=== PATIENT | female | born 1960 | race Caucasian/White ===

== ENCOUNTER 2018-07-21 19:59 | Inpatient (IN) | payer MEDICAID ==
[~2018-07-21] VITALS: Ht 170.2 cm; Wt 137.1 kg
[~2018-07-21 19:59] MED LIST: ALBU18HF2 IH; DIAZ5TAB4 PO; DIPH50TA15 PO; FURO-150 PO; NAPR220T67 PO; NYST15OI14 TP; PER10325T PO; POTA8TAB8 PO; PROM25TA14 PO; WARF1TAB PO
[2018-07-21] MEDS ORDERED: ketorolac trometh inj. 60 MG/2 ML VIAL IM ONE (20:15)
[2018-07-21] MEDS ORDERED: NAPR-1154 PO (20:27)
[2018-07-21] MEDS ORDERED: CYCL-1 PO (20:27)
[2018-07-21] MEDS ORDERED: OXYGEN (20:27)
[2018-07-21] MEDS ORDERED: LISI40TA4 PO (20:27)
[2018-07-21] MEDS ORDERED: [UNRECOGNIZED DRUG - OTHER] (20:27)
[2018-07-21 20:57] LABS: BASOPHILS # (AUTO) 0.1 X10'3 (0-0.2); BASOPHILS % (AUTO) 1.2 % (0-1); EOSINOPHILS % (AUTO) 0 % (0-6); HEMATOCRIT 57.1 % (35.0-45.0); HEMOGLOBIN 17.4 g/dl (12.0-16.0); LYMPHOCYTES # (AUTO) 0.3 X10'3 (1.1-4.8); LYMPHOCYTES % (AUTO) 2.7 % (21-51); MEAN CORPUSCULAR HEMOGLOBIN 28.7 PG (27.0-31.0); MEAN CORPUSCULAR HGB CONC 30.5 % (33.0-36.5); MEAN CORPUSCULAR VOLUME 94.1 FL (78-98); MEAN PLATELET VOLUME 10.5 FL (7.4-10.4); MONOCYTES # (AUTO) 0.1 X10'3 (0-0.9); MONOCYTES % (AUTO) 1.3 % (2-12); NEUTROPHILS % (AUTO) 94.8 % (42-75); PLATELET COUNT 182 X10'3 (140-440); RED BLOOD COUNT 6.07 X10'6 (4.20-5.60); RED CELL DISTRIBUTION WIDTH 18.8 % (11.5-14.5); WHITE BLOOD COUNT 9.5 X10'3 (4.5-11.0)
[2018-07-21 21:06] LABS: ALANINE AMINOTRANSFERASE 21 U/L (12-78); ALBUMIN 2.8 G/DL (3.4-5.0); ALBUMIN/GLOBULIN RATIO 0.5 (1.1-1.5); ALKALINE PHOSPHATASE 156 IU/L (46-116); ANION GAP 5 (8-16); ASPARTATE AMINO TRANSFERASE 26 U/L (10-37); BILIRUBIN,TOTAL 1.5 MG/DL (0.1-1.0); BLOOD UREA NITROGEN 37 MG/DL (7-18); BUN/CREATININE RATIO 32.2 (6.6-38.0); CALCIUM 9.6 MG/DL (8.5-10.1); CHLORIDE 103 MMOL/L (99-107); CREATININE 1.15 MG/DL (0.40-0.90); GLUCOSE 137 MG/DL (70-104); POTASSIUM 5.4 MMOL/L (3.5-5.1); SODIUM 143 MMOL/L (135-145); TOTAL CARBON DIOXIDE 35.3 MMOL/L (24-32); TOTAL PROTEIN 8.7 G/DL (6.4-8.2); eGFR 49 ML/MIN
[2018-07-21] MEDS ORDERED: enoxaparin 100mg/ml syringe SUBCUT ONE (21:40)
[2018-07-21 22:27] LABS: INR 1.2 INR; PROTHROMBIN TIME 11.9 SECONDS (9.0-12.0)
[2018-07-21 22:29] LABS: ANISOCYTOSIS 2+; PLATELET ESTIMATE NORMAL; TOTAL CELLS COUNTED 100
[2018-07-21 22:40] LABS: URINE HCG NEGATIVE (NEG)
[2018-07-21 22:45] LABS: CLARITY,URINE SLIGHTLY CLOUDY (Clear); COLOR,URINE AMBER (Yellow); GLUCOSE, URINE NEGATIVE (Neg); KETONES,URINE NEGATIVE (Neg); LEUKOCYTE ESTERASE ,URINE NEGATIVE (Neg); NITRITES, URINE NEGATIVE (Neg); OCCULT BLOOD,URINE SMALL (Neg); PH,URINE 5.5 (4.8-8.0); PROTEIN,URINE >=300 mg/dl (Neg)
[2018-07-21 22:51] LABS: UA COLLECTION TYPE CLN CATCH MIDSTREAM
[2018-07-21] MEDS ORDERED: mag hydrox/Alum hydrox/simeth 30ml oral suspension PO PRN (22:55)
[2018-07-21] MEDS ORDERED: acetaminophen 325mg tablet PO PRN (22:55)
[2018-07-21] MEDS ORDERED: magnesium hydroxide 30ml (MOM) UD suspension PO PRN (22:55)
[2018-07-21] MEDS ORDERED: ondansetron/PF 4mg/2ml inj IV PRN (22:55)
[2018-07-21] MEDS ORDERED: diphenhydrAMINE 25mg capsule PO PRN (23:00)
[2018-07-21] MEDS ORDERED: cyclobenzaprine 10mg tablet PO PRN (23:00)
[2018-07-21 23:05] LABS: BACTERIA,URINE FEW /HPF (Neg); CELLULAR CAST 0-4 /LPF (NEGATIVE); COARSE GRANULAR CAST 0-3 /LPF (NEGATIVE); RBC,URINE 0-2 /HPF (0-2); SQUAMOUS EPITHELIAL CELL,UR FEW /LPF (FEW); WBC,URINE 0-4 /HPF (0-4)
[2018-07-21 23:52] LABS: HEMOGLOBIN A1C 5.8 % (4.5-6.2)
[2018-07-22] MEDS: oxyCODONE/APAP 10/325mg tablet PO PRN ×3 (00:28→14:01)
[2018-07-22 07:50] VITALS: BP 132/78
[2018-07-22] MEDS: nystatin 15 GM ointment TP SCH ×2 (08:00→20:14)
[2018-07-22] MEDS ORDERED: furosemide 20MG tablet PO SCH (08:00)
[2018-07-22] MEDS ORDERED: potassium chloride 8mEq ER tablet PO SCH (08:00)
[2018-07-22] MEDS ORDERED: heparin, porcine 5000 units/ml vial SQ SCH (08:00)
[2018-07-22] MEDS: lisinopril 20mg tablet PO SCH (08:26)
[2018-07-22 08:58] LABS: ALANINE AMINOTRANSFERASE 22 U/L (12-78); ALBUMIN 2.6 G/DL (3.4-5.0); ALBUMIN/GLOBULIN RATIO 0.5 (1.1-1.5); ALKALINE PHOSPHATASE 150 IU/L (46-116); ANION GAP 3 (8-16); ASPARTATE AMINO TRANSFERASE 24 U/L (10-37); BILIRUBIN,TOTAL 1.2 MG/DL (0.1-1.0); BLOOD UREA NITROGEN 37 MG/DL (7-18); CALCIUM 9.2 MG/DL (8.5-10.1); CHLORIDE 102 MMOL/L (99-107); CHOL/HDL RATIO 2.5 (0.00-4.99); CHOLESTEROL 116 MG/DL (0-200); GLUCOSE 129 MG/DL (70-104); HDL CHOLESTEROL 46 MG/DL (35-60); LDL CHOLESTEROL 61 MG/DL (50-100); POTASSIUM 5.5 MMOL/L (3.5-5.1); SODIUM 143 MMOL/L (135-145); TOTAL CARBON DIOXIDE 38.4 MMOL/L (24-32); TOTAL PROTEIN 8.3 G/DL (6.4-8.2); TRIGLYCERIDES 88 MG/DL (20-135)
[2018-07-22 09:53] LABS: BUN/CREATININE RATIO 30.1 (6.6-38.0); CREATININE 1.23 MG/DL (0.40-0.90); eGFR 45 ML/MIN
[2018-07-22 11:00] VITALS: BP 136/58
[2018-07-22 11:24] LABS: HEMATOCRIT 50.7 % (35.0-45.0); HEMOGLOBIN 16.2 g/dl (12.0-16.0); MEAN CORPUSCULAR HEMOGLOBIN 29.2 PG (27.0-31.0); MEAN CORPUSCULAR VOLUME 91.3 FL (78-98); MEAN PLATELET VOLUME 10.6 FL (7.4-10.4); PLATELET COUNT 220 X10'3 (140-440); RED BLOOD COUNT 5.56 X10'6 (4.20-5.60); RED CELL DISTRIBUTION WIDTH 17.7 % (11.5-14.5)
[2018-07-22 11:29] LABS: BASOPHILS % (AUTO) 0 % (0-1); EOSINOPHILS # (AUTO) 0.1 X10'3 (0-0.9); EOSINOPHILS % (AUTO) 0.9 % (0-6); LYMPHOCYTES # (AUTO) 0.4 X10'3 (1.1-4.8); LYMPHOCYTES % (AUTO) 3.8 % (21-51); MONOCYTES # (AUTO) 0.5 X10'3 (0-0.9); NEUTROPHILS # (AUTO) 9.5 X10'3 (1.8-7.7); NEUTROPHILS % (AUTO) 90.3 % (42-75); WHITE BLOOD COUNT 10.5 X10'3 (4.5-11.0)
[2018-07-22] MEDS ORDERED: CefTRIAXone/D5W-Rocephin 1gm 50 ML IV SCH (12:35)
[2018-07-22] MEDS: levoFLOXACIN-Levaquin 750MG/D5 150 ML IV SCH (13:47)
[2018-07-22 15:00] VITALS: BP 111/55
[2018-07-22] MEDS ORDERED: LIDOcaine 1% (10mg/ml) 2ml vial ONE (15:28)
[2018-07-22] MEDS: furosemide 40mg/4ml inj IV SCH (20:13)
[2018-07-22 23:00] VITALS: BP 117/68
[2018-07-23] VITALS (12 sets, daily range): BP systolic 107–158; BP diastolic 70–95
[2018-07-23] MEDS: heparin, porcine 5000 units/ml vial SQ SCH ×3 (00:13→16:35)
[2018-07-23 06:36] LABS: BASOPHILS # (AUTO) 0.2 X10'3 (0-0.2); EOSINOPHILS % (AUTO) 0.3 % (0-6); HEMATOCRIT 55.1 % (35.0-45.0); LYMPHOCYTES # (AUTO) 0.6 X10'3 (1.1-4.8); LYMPHOCYTES % (AUTO) 6.9 % (21-51); MEAN CORPUSCULAR HEMOGLOBIN 28.7 PG (27.0-31.0); MEAN CORPUSCULAR HGB CONC 30.4 % (33.0-36.5); MEAN CORPUSCULAR VOLUME 94.4 FL (78-98); MEAN PLATELET VOLUME 10.2 FL (7.4-10.4); MONOCYTES # (AUTO) 0.9 X10'3 (0-0.9); MONOCYTES % (AUTO) 9.7 % (2-12); NEUTROPHILS # (AUTO) 7.5 X10'3 (1.8-7.7); NEUTROPHILS % (AUTO) 81.1 % (42-75); PLATELET COUNT 205 X10'3 (140-440); RED BLOOD COUNT 5.84 X10'6 (4.20-5.60); RED CELL DISTRIBUTION WIDTH 18.8 % (11.5-14.5); WHITE BLOOD COUNT 9.2 X10'3 (4.5-11.0)
[2018-07-23 07:00] LABS: HEMOGLOBIN 17.1 g/dl (12.0-16.0)
[2018-07-23 07:03] LABS: ALANINE AMINOTRANSFERASE 17 U/L (12-78); ALBUMIN 2.5 G/DL (3.4-5.0); ALBUMIN/GLOBULIN RATIO 0.5 (1.1-1.5); ALKALINE PHOSPHATASE 127 IU/L (46-116); ANION GAP 5 (8-16); ASPARTATE AMINO TRANSFERASE 25 U/L (10-37); BLOOD UREA NITROGEN 44 MG/DL (7-18); BUN/CREATININE RATIO 35.8 (6.6-38.0); CALCIUM 9.5 MG/DL (8.5-10.1); CHLORIDE 104 MMOL/L (99-107); CREATININE 1.23 MG/DL (0.40-0.90); GLUCOSE 97 MG/DL (70-104); POTASSIUM 5.2 MMOL/L (3.5-5.1); SODIUM 146 MMOL/L (135-145); TOTAL CARBON DIOXIDE 36.9 MMOL/L (24-32); TOTAL PROTEIN 7.7 G/DL (6.4-8.2); eGFR 45 ML/MIN
[2018-07-23] MEDS: levoFLOXACIN-Levaquin 750MG/D5 150 ML IV SCH (07:49)
[2018-07-23] MEDS: lisinopril 20mg tablet PO SCH (07:49)
[2018-07-23] MEDS: oxyCODONE/APAP 10/325mg tablet PO PRN ×4 (07:50→23:43)
[2018-07-23] MEDS: furosemide 40mg/4ml inj IV SCH ×2 (07:52→19:46)
[2018-07-23] MEDS: nystatin 15 GM ointment TP SCH ×2 (08:00→19:47)
[2018-07-23] MEDS ORDERED: sodium polystyrene sulfonate 15gm/60ml oral suspension PO ONE (08:25)
[2018-07-23] MEDS ORDERED: LIDOcaine 1%/PF 5ML 10 MG/ML VIAL ONE (10:34)
[2018-07-23 12:42] LABS: ALBUMIN,BODY FLUID 1.5 G/DL; GLUCOSE,BODY FLUID 119 MG/DL; LDH,BODY FLUID 230 U/L; TOTAL PROTEIN,BODY FLUID 3.6 G/DL
[2018-07-23 12:50] LABS: BF WBC COUNT 400 /CU MM (0-1000); BFAPPEAR CLOUDY; BFCOLOR AMBER; BFVOLUME 55 ML
[2018-07-23 12:51] LABS: BF MESOTHELIAL CELLS OCCASIONAL; BF RBC COUNT 5325 /CU MM; LYMPHOCYTES,BODY FLUID 32 %; MONOCYTES,BODY FLUID 5 %; NEUTROPHILS,BODY FLUID 63 %
[2018-07-23] MEDS: methylPREDNISolone sod succ/PF 40mg inj. IV SCH (16:00)
[2018-07-23] MEDS: lactobacillus rhamnosus 10,000 MMU CELLS/CAPSULE PO SCH (19:45)
[2018-07-24] VITALS (7 sets, daily range): BP systolic 106–152; BP diastolic 57–98
[2018-07-24] MEDS: methylPREDNISolone sod succ/PF 40mg inj. IV SCH ×3 (00:31→17:21)
[2018-07-24] MEDS: heparin, porcine 5000 units/ml vial SQ SCH ×3 (00:36→17:21)
[2018-07-24 06:06] LABS: BASOPHILS % (AUTO) 0.7 % (0-1); EOSINOPHILS % (AUTO) 0.1 % (0-6); HEMATOCRIT 55.1 % (35.0-45.0); HEMOGLOBIN 16.8 g/dl (12.0-16.0); LYMPHOCYTES # (AUTO) 0.2 X10'3 (1.1-4.8); MEAN CORPUSCULAR HEMOGLOBIN 28.6 PG (27.0-31.0); MEAN CORPUSCULAR HGB CONC 30.5 % (33.0-36.5); MEAN CORPUSCULAR VOLUME 93.9 FL (78-98); MEAN PLATELET VOLUME 10.8 FL (7.4-10.4); MONOCYTES # (AUTO) 0.1 X10'3 (0-0.9); MONOCYTES % (AUTO) 1.3 % (2-12); NEUTROPHILS # (AUTO) 5.4 X10'3 (1.8-7.7); NEUTROPHILS % (AUTO) 93.9 % (42-75); PLATELET COUNT 185 X10'3 (140-440); RED BLOOD COUNT 5.87 X10'6 (4.20-5.60); RED CELL DISTRIBUTION WIDTH 18.2 % (11.5-14.5); WHITE BLOOD COUNT 5.7 X10'3 (4.5-11.0)
[2018-07-24 06:38] LABS: ALBUMIN 2.5 G/DL (3.4-5.0); ALBUMIN/GLOBULIN RATIO 0.5 (1.1-1.5); ANION GAP 3 (8-16); BILIRUBIN,TOTAL 1.1 MG/DL (0.1-1.0); BLOOD UREA NITROGEN 42 MG/DL (7-18); BUN/CREATININE RATIO 33.9 (6.6-38.0); CALCIUM 9.6 MG/DL (8.5-10.1); CHLORIDE 102 MMOL/L (99-107); CREATININE 1.24 MG/DL (0.40-0.90); GLUCOSE 133 MG/DL (70-104); SODIUM 147 MMOL/L (135-145); TOTAL PROTEIN 7.8 G/DL (6.4-8.2); eGFR 45 ML/MIN
[2018-07-24 06:39] LABS: ALANINE AMINOTRANSFERASE 19 U/L (12-78); ALKALINE PHOSPHATASE 128 IU/L (46-116); ASPARTATE AMINO TRANSFERASE 26 U/L (10-37); POTASSIUM 4.9 MMOL/L (3.5-5.1)
[2018-07-24 06:42] LABS: TOTAL CARBON DIOXIDE 42.5 MMOL/L (24-32)
[2018-07-24] MEDS: nystatin 15 GM ointment TP SCH ×2 (08:00→19:34)
[2018-07-24] MEDS: lactobacillus rhamnosus 10,000 MMU CELLS/CAPSULE PO SCH ×2 (09:18→19:33)
[2018-07-24] MEDS: oxyCODONE/APAP 10/325mg tablet PO PRN ×2 (09:18→17:24)
[2018-07-24] MEDS: levoFLOXACIN-Levaquin 750MG/D5 150 ML IV SCH (09:20)
[2018-07-24] MEDS: furosemide 40mg/4ml inj IV SCH ×2 (09:20→19:33)
[2018-07-24 09:46] LABS: ABG BASE EXCESS 11.4 mmol/L (-2.0-3.0); ABG HCO3 42.6 mmol/L (22.0-26.0); ABG OXYGEN SATURATION 94.7 % (95-98); ABG PCO2 (T) 83.5 mmHg (32.0-45.0); ABG PH (T) 7.326 (7.350-7.450); ABG PO2 (T) 71.9 mmHg (83-108); ALLEN'S TEST Positive; FCOHb 0.5 % (0.5-1.5); FLOW 10 L/min; FMetHb 0.5 % (0.3-1.12); FO2Hb 93.8 % (94-100); RESPIRATORY RATE 20 b/min; TOTAL HEMOGLOBIN 18.4 G/dl (12.0-16.0)
[2018-07-24] MEDS: diazepam 5mg tablet PO PRN (19:33)
[2018-07-25] VITALS (10 sets, daily range): BP systolic 136–172; BP diastolic 71–101
[2018-07-25] MEDS: methylPREDNISolone sod succ/PF 40mg inj. IV SCH ×3 (00:05→16:21)
[2018-07-25] MEDS: heparin, porcine 5000 units/ml vial SQ SCH ×3 (00:06→16:22)
[2018-07-25] MEDS: diazepam 5mg tablet PO PRN ×2 (02:29→16:34)
[2018-07-25 07:03] LABS: BASOPHILS % (AUTO) 0.7 % (0-1); EOSINOPHILS # (AUTO) 0.1 X10'3 (0-0.9); LYMPHOCYTES # (AUTO) 0.3 X10'3 (1.1-4.8); MEAN CORPUSCULAR VOLUME 92.9 FL (78-98); MEAN PLATELET VOLUME 10.6 FL (7.4-10.4); MONOCYTES # (AUTO) 0.3 X10'3 (0-0.9); MONOCYTES % (AUTO) 3.9 % (2-12); NEUTROPHILS % (AUTO) 90.4 % (42-75); PLATELET COUNT 168 X10'3 (140-440); RED BLOOD COUNT 6.08 X10'6 (4.20-5.60); RED CELL DISTRIBUTION WIDTH 17.3 % (11.5-14.5); WHITE BLOOD COUNT 6.7 X10'3 (4.5-11.0)
[2018-07-25 07:20] LABS: ALANINE AMINOTRANSFERASE 21 U/L (12-78); ALBUMIN 2.5 G/DL (3.4-5.0); ALBUMIN/GLOBULIN RATIO 0.5 (1.1-1.5); ALKALINE PHOSPHATASE 124 IU/L (46-116); ASPARTATE AMINO TRANSFERASE 20 U/L (10-37); BILIRUBIN,TOTAL 1.3 MG/DL (0.1-1.0); BLOOD UREA NITROGEN 40 MG/DL (7-18); BUN/CREATININE RATIO 31.5 (6.6-38.0); CALCIUM 9.3 MG/DL (8.5-10.1); CHLORIDE 99 MMOL/L (99-107); CREATININE 1.27 MG/DL (0.40-0.90); GLUCOSE 138 MG/DL (70-104); SODIUM 147 MMOL/L (135-145); TOTAL PROTEIN 7.4 G/DL (6.4-8.2); eGFR 44 ML/MIN
[2018-07-25 07:51] LABS: ANISOCYTOSIS 1+; LARGE PLATELETS FEW; PLATELET ESTIMATE NORMAL
[2018-07-25 07:52] LABS: STOMATOCYTES 1+
[2018-07-25 07:54] LABS: ANION GAP 1 (8-16); POTASSIUM 4.2 MMOL/L (3.5-5.1)
[2018-07-25 07:55] LABS: HEMOGLOBIN 17.1 g/dl (12.0-16.0)
[2018-07-25 07:57] LABS: HEMATOCRIT 53.1 % (35.0-45.0); MEAN CORPUSCULAR HEMOGLOBIN 28.1 PG (27.0-31.0); MEAN CORPUSCULAR HGB CONC 32.2 % (33.0-36.5)
[2018-07-25] MEDS: lactobacillus rhamnosus 10,000 MMU CELLS/CAPSULE PO SCH ×2 (07:57→19:47)
[2018-07-25] MEDS: furosemide 40mg/4ml inj IV SCH (07:57)
[2018-07-25] MEDS: oxyCODONE/APAP 10/325mg tablet PO PRN ×3 (08:00→19:48)
[2018-07-25 08:02] LABS: TOTAL CARBON DIOXIDE 47.1 MMOL/L (24-32)
[2018-07-25] MEDS: nystatin 15 GM ointment TP SCH ×2 (08:46→20:00)
[2018-07-25] MEDS: levoFLOXACIN 750MG TABLET PO SCH (10:53)
[2018-07-25 12:40] LABS: ABG HCO3 48.5 mmol/L (22.0-26.0); ABG OXYGEN SATURATION 92.6 % (95-98); ABG PCO2 (T) 70.8 mmHg (32.0-45.0); ABG PH (T) 7.454 (7.350-7.450); ALLEN'S TEST Positive; FCOHb 0.4 % (0.5-1.5); FMetHb 0.4 % (0.3-1.12); FO2Hb 91.9 % (94-100); TOTAL HEMOGLOBIN 18.4 G/dl (12.0-16.0)
[2018-07-25] MEDS: ipratropium 0.5 MG/2.5ML nebule IH SCH ×3 (16:19→23:06)
[2018-07-25] MEDS: furosemide 20MG tablet PO SCH (19:49)
[2018-07-26] MEDS: methylPREDNISolone sod succ/PF 40mg inj. IV SCH ×3 (00:10→16:32)
[2018-07-26] MEDS: heparin, porcine 5000 units/ml vial SQ SCH ×3 (00:11→16:33)
[2018-07-26] MEDS: oxyCODONE/APAP 10/325mg tablet PO PRN ×4 (00:16→19:56)
[2018-07-26] MEDS: ipratropium 0.5 MG/2.5ML nebule IH SCH ×6 (02:53→23:26)
[2018-07-26 03:00] VITALS: BP 166/84
[2018-07-26 06:00] VITALS: BP 150/90
[2018-07-26 07:02] LABS: BASOPHILS # (AUTO) 0.1 X10'3 (0-0.2); BASOPHILS % (AUTO) 1.8 % (0-1); EOSINOPHILS % (AUTO) 0 % (0-6); HEMOGLOBIN 17.4 g/dl (12.0-16.0); LYMPHOCYTES # (AUTO) 0.3 X10'3 (1.1-4.8); LYMPHOCYTES % (AUTO) 3.5 % (21-51); MEAN CORPUSCULAR HEMOGLOBIN 28.4 PG (27.0-31.0); MEAN CORPUSCULAR HGB CONC 31.2 % (33.0-36.5); MEAN CORPUSCULAR VOLUME 91.2 FL (78-98); MEAN PLATELET VOLUME 10.4 FL (7.4-10.4); MONOCYTES # (AUTO) 0.5 X10'3 (0-0.9); MONOCYTES % (AUTO) 6.3 % (2-12); NEUTROPHILS # (AUTO) 6.3 X10'3 (1.8-7.7); NEUTROPHILS % (AUTO) 88.4 % (42-75); PLATELET COUNT 169 X10'3 (140-440); RED BLOOD COUNT 6.14 X10'6 (4.20-5.60); RED CELL DISTRIBUTION WIDTH 17.7 % (11.5-14.5); WHITE BLOOD COUNT 7.2 X10'3 (4.5-11.0)
[2018-07-26 07:21] LABS: ALANINE AMINOTRANSFERASE 26 U/L (12-78); ALBUMIN 2.5 G/DL (3.4-5.0); ALBUMIN/GLOBULIN RATIO 0.5 (1.1-1.5); ALKALINE PHOSPHATASE 114 IU/L (46-116); ASPARTATE AMINO TRANSFERASE 28 U/L (10-37); BILIRUBIN,TOTAL 1.4 MG/DL (0.1-1.0); BLOOD UREA NITROGEN 42 MG/DL (7-18); BUN/CREATININE RATIO 33.3 (6.6-38.0); CALCIUM 9.2 MG/DL (8.5-10.1); CHLORIDE 98 MMOL/L (99-107); CREATININE 1.26 MG/DL (0.40-0.90); GLUCOSE 159 MG/DL (70-104); POTASSIUM 4.1 MMOL/L (3.5-5.1); SODIUM 144 MMOL/L (135-145); TOTAL PROTEIN 7.2 G/DL (6.4-8.2); eGFR 44 ML/MIN
[2018-07-26 07:26] LABS: ANISOCYTOSIS 2+; PLATELET ESTIMATE NORMAL
[2018-07-26] MEDS: furosemide 20MG tablet PO SCH (07:36)
[2018-07-26] MEDS: lactobacillus rhamnosus 10,000 MMU CELLS/CAPSULE PO SCH ×2 (07:36→19:54)
[2018-07-26 07:59] LABS: ANION GAP -4 (8-16)
[2018-07-26 08:00] LABS: TOTAL CARBON DIOXIDE > 50 MMOL/L (24-32)
[2018-07-26] MEDS: nystatin 15 GM ointment TP SCH ×2 (08:00→19:56)
[2018-07-26 08:40] LABS: ABG BASE EXCESS 18.3 mmol/L (-2.0-3.0); ABG HCO3 47.8 mmol/L (22.0-26.0); ABG PCO2 (T) 68.8 mmHg (32.0-45.0); ALLEN'S TEST Positive; FCOHb 0.3 % (0.5-1.5); FMetHb 0.3 % (0.3-1.12); FO2Hb 90.5 % (94-100); TOTAL HEMOGLOBIN 19.5 G/dl (12.0-16.0)
[2018-07-26 11:00] VITALS: BP 155/94
[2018-07-26] MEDS: diazepam 5mg tablet PO PRN (11:09)
[2018-07-26] MEDS: levoFLOXACIN 750MG TABLET PO SCH (11:10)
[2018-07-26 11:27] LABS: CLARITY,URINE CLEAR (Clear); COLOR,URINE YELLOW (Yellow); GLUCOSE, URINE NEGATIVE (Neg); KETONES,URINE NEGATIVE (Neg); LEUKOCYTE ESTERASE ,URINE TRACE (Neg); NITRITES, URINE NEGATIVE (Neg); OCCULT BLOOD,URINE LARGE (Neg); PROTEIN,URINE NEGATIVE (Neg); UROBILINOGEN,URINE 0.2 E.U/dL (0.2-1.0)
[2018-07-26 11:28] LABS: UA COLLECTION TYPE NON-SPECIFIED
[2018-07-26 11:34] LABS: MUCUS STRANDS MANY /LPF (Neg); SQUAMOUS EPITHELIAL CELL,UR FEW /LPF (FEW)
[2018-07-26 11:36] LABS: BACTERIA,URINE NONE SEEN /HPF (Neg); RBC,URINE 50-100 /HPF (0-2); WBC,URINE 0-4 /HPF (0-4)
[2018-07-26 15:00] VITALS: BP 139/86
[2018-07-26 19:00] VITALS: BP 137/79
[2018-07-26] MEDS: acetaZOLAMIDE 250mg tablet PO SCH (19:54)
[2018-07-26 23:00] VITALS: BP 131/60
[2018-07-27] MEDS: methylPREDNISolone sod succ/PF 40mg inj. IV SCH ×3 (00:28→15:15)
[2018-07-27] MEDS: heparin, porcine 5000 units/ml vial SQ SCH ×3 (00:30→15:16)
[2018-07-27] MEDS: ipratropium 0.5 MG/2.5ML nebule IH SCH ×4 (02:47→14:59)
[2018-07-27 03:00] VITALS: BP 140/68
[2018-07-27] MEDS: oxyCODONE/APAP 10/325mg tablet PO PRN ×3 (04:56→15:15)
[2018-07-27 06:00] VITALS: BP 132/90
[2018-07-27] MEDS: nystatin 15 GM ointment TP SCH (08:00)
[2018-07-27] MEDS: lactobacillus rhamnosus 10,000 MMU CELLS/CAPSULE PO SCH (08:13)
[2018-07-27] MEDS: acetaZOLAMIDE 250mg tablet PO SCH (08:13)
[2018-07-27 09:27] LABS: ALANINE AMINOTRANSFERASE 28 U/L (12-78); ALBUMIN 2.6 G/DL (3.4-5.0); ALBUMIN/GLOBULIN RATIO 0.6 (1.1-1.5); ALKALINE PHOSPHATASE 115 IU/L (46-116); ASPARTATE AMINO TRANSFERASE 26 U/L (10-37); BILIRUBIN,TOTAL 1.7 MG/DL (0.1-1.0); BLOOD UREA NITROGEN 42 MG/DL (7-18); BUN/CREATININE RATIO 32.8 (6.6-38.0); CHLORIDE 97 MMOL/L (99-107); CREATININE 1.28 MG/DL (0.40-0.90); GLUCOSE 156 MG/DL (70-104); POTASSIUM 3.7 MMOL/L (3.5-5.1); SODIUM 142 MMOL/L (135-145); eGFR 43 ML/MIN
[2018-07-27 09:28] LABS: BASOPHILS % (AUTO) 0.2 % (0-1); EOSINOPHILS % (AUTO) 0 % (0-6); LYMPHOCYTES # (AUTO) 0.3 X10'3 (1.1-4.8); LYMPHOCYTES % (AUTO) 3.8 % (21-51); MONOCYTES # (AUTO) 0.3 X10'3 (0-0.9); MONOCYTES % (AUTO) 4.1 % (2-12); NEUTROPHILS # (AUTO) 6.9 X10'3 (1.8-7.7); NEUTROPHILS % (AUTO) 91.9 % (42-75)
[2018-07-27 09:43] LABS: ANION GAP -2 (8-16)
[2018-07-27 09:44] LABS: HEMOGLOBIN 17.9 g/dl (12.0-16.0); MEAN CORPUSCULAR HGB CONC 31.9 % (33.0-36.5); MEAN CORPUSCULAR VOLUME 90.9 FL (78-98); MEAN PLATELET VOLUME 10.6 FL (7.4-10.4); PLATELET COUNT 140 X10'3 (140-440); RED BLOOD COUNT 6.16 X10'6 (4.20-5.60); RED CELL DISTRIBUTION WIDTH 17.3 % (11.5-14.5); WHITE BLOOD COUNT 6.9 X10'3 (4.5-11.0)
[2018-07-27 09:58] LABS: TOTAL CARBON DIOXIDE 46.7 MMOL/L (24-32)
[2018-07-27 11:00] VITALS: BP 138/80
[2018-07-27] MEDS: levoFLOXACIN 750MG TABLET PO SCH (12:11)
[2018-07-27 15:00] VITALS: BP 145/74
[2018-07-29] MEDS ORDERED: levoFLOXACIN 750MG TABLET PO SCH (11:00)
== END 2018-07-27 16:30 | DRG 134 ==
LOC: ER 19:59 → ED HOLD 22:51 → EDBEDREQ 07-22 06:20 → PCU 3S 07-22 07:45 → CMPBEDREQ 07-26 21:33
PROVIDERS: ADMIT Internal Medicine; ATTEND Family Medicine
PROC: 0W993ZZ Drainage of Right Pleural Cavity, Percutaneous Approach (ICD-10-PCS; principal; 2018-07-23)
PROC: 5A09457 Assistance with Respiratory Ventilation, 24-96 Consecutive Hours, Continuous Positive Airway Pressure (ICD-10-PCS; 2018-07-24)
DX: I26.99 Other pulmonary embolism without acute cor pulmonale (principal); J96.01 Acute respiratory failure with hypoxia; I50.31 Acute diastolic (congestive) heart failure; J18.9 Pneumonia, unspecified organism; J90 Pleural effusion, not elsewhere classified; E87.3 Alkalosis; J44.1 Chronic obstructive pulmonary disease with (acute) exacerbation; J44.0 Chronic obstructive pulmonary disease with (acute) lower respiratory infection; E87.5 Hyperkalemia; L03.115 Cellulitis of right lower limb; N17.9 Acute kidney failure, unspecified; D35.02 Benign neoplasm of left adrenal gland; L03.116 Cellulitis of left lower limb; G89.29 Other chronic pain; F17.200 Nicotine dependence, unspecified, uncomplicated; G35 Multiple sclerosis; N18.9 Chronic kidney disease, unspecified; Z88.8 Allergy status to other drugs, medicaments and biological substances; Z86.718 Personal history of other venous thrombosis and embolism; Z88.1 Allergy status to other antibiotic agents; Z71.6 Tobacco abuse counseling; Z85.42 Personal history of malignant neoplasm of other parts of uterus; Z90.710 Acquired absence of both cervix and uterus; Z99.81 Dependence on supplemental oxygen
CPT/HCPCS: 32557; 36415; 36600; 71045; 71250; 76604; 78582; 80053; 80061; 81001; 81025; 82042; 82803; 82945; 83036; 83605; 83615; 83735; 83880; 84132; 84145; 84157; 84484; 85018; 85025; 85610; 85730; 87040; 87070; 89051; 93005; 93306; 93970; 94640; 94660; 94760; 96372; 97110; 97162; 97530; 99285; A9539; A9540; C1729; C1769; G0378; J1644; J1650; J1940; J1956; J2001; J2920; J3490; Q2037

== ENCOUNTER 2019-07-16 01:49 | Inpatient (IN) | payer MEDICAID ==
[~2019-07-16] VITALS: Ht 172.7 cm; Wt 135.5 kg
[~2019-07-16 01:49] MED LIST changes: -ALBU18HF2 IH; +CYCL-1 PO; +LISI40TA4 PO; +NAPR-1154 PO; -NAPR220T67 PO; +OXYGEN; -PROM25TA14 PO; -WARF1TAB PO; +[UNRECOGNIZED DRUG - OTHER]
[2019-07-16] MEDS ORDERED: iohexol 350MG/ML 100ml bottle IV ONE (02:41)
[2019-07-16 03:22] LABS: BASOPHILS % (AUTO) 0.3 % (0-1); EOSINOPHILS # (AUTO) 0.2 X10'3 (0-0.9); EOSINOPHILS % (AUTO) 1.6 % (0-6); HEMATOCRIT 34.6 % (35.0-45.0); LYMPHOCYTES # (AUTO) 0.5 X10'3 (1.1-4.8); LYMPHOCYTES % (AUTO) 3.7 % (21-51); MEAN CORPUSCULAR HEMOGLOBIN 28.8 PG (27.0-31.0); MEAN CORPUSCULAR HGB CONC 31.9 g/dL (33.0-36.5); MEAN CORPUSCULAR VOLUME 90.4 FL (78-98); MEAN PLATELET VOLUME 8.5 FL (7.4-10.4); MONOCYTES # (AUTO) 0.5 X10'3 (0-0.9); MONOCYTES % (AUTO) 3.1 % (2-12); NEUTROPHILS # (AUTO) 13.5 X10'3 (1.8-7.7); NEUTROPHILS % (AUTO) 91.3 % (42-75); PLATELET COUNT 341 X10'3 (140-440); RED BLOOD COUNT 3.83 X10'6 (4.20-5.60); RED CELL DISTRIBUTION WIDTH 19.1 % (11.5-14.5); WHITE BLOOD COUNT 14.7 X10'3 (4.5-11.0)
[2019-07-16 03:58] LABS: CLARITY,URINE SLIGHTLY CLOUDY (Clear); COLOR,URINE YELLOW (Yellow); GLUCOSE, URINE NEGATIVE (Neg); KETONES,URINE NEGATIVE (Neg); LEUKOCYTE ESTERASE ,URINE TRACE (Neg); NITRITES, URINE NEGATIVE (Neg); OCCULT BLOOD,URINE MODERATE (Neg); PH,URINE 5.5 (4.8-8.0); PROTEIN,URINE TRACE mg/dl (Neg); UROBILINOGEN,URINE 0.2 E.U/dL (0.2-1.0)
[2019-07-16] MEDS ORDERED: morphine 4 MG/ML inj SYRINge IV ONE (04:00)
[2019-07-16 04:12] LABS: UA COLLECTION TYPE FOLEY CATH
[2019-07-16 04:14] LABS: BACTERIA,URINE FEW /HPF (Neg); SQUAMOUS EPITHELIAL CELL,UR FEW /LPF (FEW); URIC ACID CRYSTALS 3+ /HPF (NEGATIVE); WBC,URINE 0-4 /HPF (0-4)
[2019-07-16] MEDS ORDERED: APIX5TAB3 PO (04:19)
[2019-07-16] MEDS ORDERED: HYDR-4353 PO (04:19)
[2019-07-16 04:22] LABS: PARTIAL THROMBOPLASTIN TIME 28 SECONDS (22-32)
[2019-07-16 04:29] LABS: ALANINE AMINOTRANSFERASE 12 U/L (12-78); ALBUMIN/GLOBULIN RATIO 0.3 (1.1-1.5); ALKALINE PHOSPHATASE 227 IU/L (46-116); ANION GAP 5 (8-16); ASPARTATE AMINO TRANSFERASE 23 U/L (10-37); BILIRUBIN,TOTAL 0.9 MG/DL (0.1-1.0); BLOOD UREA NITROGEN 46 MG/DL (7-18); BUN/CREATININE RATIO 24.9 (6.6-38.0); CALCIUM 7.9 MG/DL (8.5-10.1); CHLORIDE 107 MMOL/L (99-107); CREATININE 1.85 MG/DL (0.40-0.90); MAGNESIUM 2.2 MG/DL (1.5-2.4); POTASSIUM 4.7 MMOL/L (3.5-5.1); SODIUM 143 MMOL/L (135-145); TOTAL PROTEIN 8.5 G/DL (6.4-8.2); TROPONIN I 0.14 NG/ML (0.0-0.05); eGFR 28 ML/MIN
[2019-07-16 04:35] LABS: GLUCOSE 93 MG/DL (70-104)
--- NOTE | 2019-07-16 04:37 | NUR ---
Patient has multiple pressure ulcers on buttocks and back of upper legs and calve. Wound also on top of right foot. Also, redness on right side of abdominal fold. Pictures taken and placed in chart
[2019-07-16] MEDS ORDERED: normal saline 1000ML IV soln IVB ONE (05:05)
[2019-07-16] MEDS ORDERED: aspirin 81mg tab.chew PO ONE (06:10)
[2019-07-16] MEDS ORDERED: HYDROcodone/acetaminophen 5mg/325mg tablet PO PRN (08:40)
[2019-07-16] MEDS ORDERED: acetaminophen 325mg tablet PO PRN ×2 (08:40)
[2019-07-16] MEDS ORDERED: magnesium 2GM in 50ml NS 50 ML IV PRN (08:40)
[2019-07-16] MEDS ORDERED: morphine 2 MG/ML inj. syringe IV PRN (08:40)
[2019-07-16] MEDS ORDERED: potassium CL 10mEq/100ml bag 100 ML IV PRN ×2 (08:40)
[2019-07-16] MEDS ORDERED: magnesium 4gm in 100ml NS 100 ML IV PRN (08:40)
[2019-07-16] MEDS ORDERED: potassium Cl 20 mEq SR tablet PO PRN ×2 (08:40)
[2019-07-16] MEDS ORDERED: magnesium Cl slow-release 64mg tablet PO PRN (08:40)
[2019-07-16] MEDS ORDERED: albuterol 2.5 MG/3 ML nebule NEB PRN (08:45)
--- NOTE | 2019-07-16 08:54 | NUR ---
recieved report from ER nurse. Pt to arrive to 0163r
[2019-07-16 09:00] VITALS: BP 114/73
--- NOTE | 2019-07-16 09:00 | NUR ---
pt arrived to 4013a in hospital bed
[2019-07-16 10:00] VITALS: BP 118/63
[2019-07-16] MEDS: HYDROcodone/acetaminophen 10/325mg tab PO PRN ×2 (10:47→20:43)
[2019-07-16] MEDS: nystatin 15 GM powder TP SCH ×2 (13:48→20:47)
[2019-07-16] MEDS: furosemide 20MG tablet PO SCH ×2 (13:49→20:43)
[2019-07-16] MEDS: normal saline 1000ml 1,000 ML IV SCH (13:49)
[2019-07-16] MEDS: morphine 2 MG/ML inj. syringe IV PRN (14:35)
[2019-07-16] MEDS ORDERED: ipratropium/albuterol 3ml nebule NEB PRN (15:15)
[2019-07-16 18:00] VITALS: BP 105/50
--- NOTE | 2019-07-16 18:40 | NUR ---
PAGER ID: [phone] MESSAGE: Jo Ann [phone] Brittany Fan in [id number]- she is afib per tele, and is not on an anticoag. Her Eliquis is held. Had 325 mg asa this am. Please advise, thanks
[2019-07-16] MEDS: apixaban 5mg tablet PO SCH (20:43)
[2019-07-16] MEDS: docusate sod 100mg capsule PO SCH (20:43)
[2019-07-16] MEDS: lactobacillus rhamnosus 10,000 MMU CELLS/CAPSULE PO SCH (20:44)
[2019-07-16] MEDS: heparin, porcine 5000 units/ml vial SQ SCH (20:47)
[2019-07-16] MEDS ORDERED: temazepam 15mg capsule PO PRN (21:00)
[2019-07-16] MEDS ORDERED: VANCOMYCIN LEVEL IV ONE (21:30)
[2019-07-16 21:56] VITALS: BP 106/50
[2019-07-17] MEDS: morphine 2 MG/ML inj. syringe IV PRN ×2 (00:19→08:44)
--- NOTE | 2019-07-17 00:51 | NUR ---
put 15 ml in simon balloon to help prevent leaking around simon. will continue to monitor. wrote on tubing and simon bag as well
[2019-07-17 02:17] VITALS: BP 110/47
[2019-07-17] MEDS: HYDROcodone/acetaminophen 10/325mg tab PO PRN ×3 (04:37→20:39)
[2019-07-17 06:00] VITALS: BP 113/56
--- NOTE | 2019-07-17 06:29 | NUR ---
reported to days. noted pt resting w/o distress. anticipate getting an air bed that is wider for patient wounds and mobility. also noted that pt may be bleeding at iv site from eloquis. pt wants to ask MD if she should continue eloquis - as she has not started the medication at home but took one dose last night.
[2019-07-17 06:45] LABS: BASOPHILS # (AUTO) 0.1 X10'3 (0-0.2); BASOPHILS % (AUTO) 0.5 % (0-1); EOSINOPHILS # (AUTO) 0.2 X10'3 (0-0.9); EOSINOPHILS % (AUTO) 1.6 % (0-6); HEMATOCRIT 32.5 % (35.0-45.0); HEMOGLOBIN 10.2 g/dl (12.0-16.0); LYMPHOCYTES # (AUTO) 0.8 X10'3 (1.1-4.8); LYMPHOCYTES % (AUTO) 6.5 % (21-51); MEAN CORPUSCULAR HEMOGLOBIN 28.7 PG (27.0-31.0); MEAN CORPUSCULAR HGB CONC 31.4 g/dL (33.0-36.5); MEAN CORPUSCULAR VOLUME 91.4 FL (78-98); MEAN PLATELET VOLUME 8.8 FL (7.4-10.4); MONOCYTES # (AUTO) 0.7 X10'3 (0-0.9); NEUTROPHILS # (AUTO) 10.1 X10'3 (1.8-7.7); NEUTROPHILS % (AUTO) 85.4 % (42-75); PLATELET COUNT 319 X10'3 (140-440); RED BLOOD COUNT 3.56 X10'6 (4.20-5.60); RED CELL DISTRIBUTION WIDTH 19.3 % (11.5-14.5); WHITE BLOOD COUNT 11.8 X10'3 (4.5-11.0)
[2019-07-17 06:49] LABS: ALANINE AMINOTRANSFERASE 12 U/L (12-78); ALBUMIN 1.9 G/DL (3.4-5.0); ALBUMIN/GLOBULIN RATIO 0.3 (1.1-1.5); ALKALINE PHOSPHATASE 206 IU/L (46-116); ANION GAP 6 (8-16); ASPARTATE AMINO TRANSFERASE 23 U/L (10-37); BILIRUBIN,TOTAL 0.7 MG/DL (0.1-1.0); BLOOD UREA NITROGEN 45 MG/DL (7-18); BUN/CREATININE RATIO 24.5 (6.6-38.0); CALCIUM 8.3 MG/DL (8.5-10.1); CHLORIDE 104 MMOL/L (99-107); CREATININE 1.84 MG/DL (0.40-0.90); MAGNESIUM 2.3 MG/DL (1.5-2.4); SODIUM 140 MMOL/L (135-145); TOTAL CARBON DIOXIDE 30.4 MMOL/L (24-32); TOTAL PROTEIN 8.5 G/DL (6.4-8.2); eGFR 28 ML/MIN
[2019-07-17 06:57] LABS: GLUCOSE 107 MG/DL (70-104)
[2019-07-17 07:16] LABS: ANISOCYTOSIS 2+; PLATELET ESTIMATE NORMAL; POLYCHROMASIA 1+; STOMATOCYTES FEW
[2019-07-17 07:17] LABS: HYPOCHROMASIA 1+
[2019-07-17] MEDS: apixaban 5mg tablet PO SCH ×2 (08:00→20:52)
[2019-07-17] MEDS: K and/or MAG REPLACEMENT MC SCH (08:00)
[2019-07-17] MEDS: normal saline 1000ml 1,000 ML IV SCH (08:00)
[2019-07-17] MEDS: nicotine 14mg patch - 24hr TD SCH (08:00)
[2019-07-17] MEDS: heparin, porcine 5000 units/ml vial SQ SCH ×2 (08:00→20:44)
[2019-07-17] MEDS: lactobacillus rhamnosus 10,000 MMU CELLS/CAPSULE PO SCH ×2 (08:38→20:36)
[2019-07-17] MEDS: docusate sod 100mg capsule PO SCH ×2 (08:38→20:37)
[2019-07-17] MEDS: furosemide 20MG tablet PO SCH ×2 (08:38→20:37)
[2019-07-17] MEDS: nystatin 15 GM powder TP SCH ×2 (08:50→20:43)
[2019-07-17 10:00] VITALS: BP 110/59
[2019-07-17] MEDS ORDERED: FLU VACC QS2019-20 36MOS UP/PF 60 MCG/0.5 ML SYRINGE IMVAC ONE (10:00)
--- NOTE | 2019-07-17 15:57 | NUR ---
Babar trigger: Babar 12. Pt admit w/ anasarca, CKD III, chronic lymphedema to BLE, RLE extensive cellulitis, large blister to right foot, and multiple decubitus areas to bilateral buttock and posterior thigh. PO 100% heart healthy meals good intake first meals. Pt current wt 189kg though no wt documented in EMR and prior admit last June was 137kg. Double proteins TIDWM added given extensive healing needs; dietary notified. Pt has severe weakness, BLE/bilateral scleral +4 edema present, and given morbid obesity w/ impaired skin integrity and hx pt qualifies for severe malnutrition r/t morbid obesity at this time; MD notified. Pt unable to wake during RD visit for written/verbal malnutrition eds. Will need eds once appropriate prior to d/c. Will continue to monitor for additional protein needs. Rec: 1. continue heart healthy diet; double proteins TIDWM 2. monitor for additional protein preferences 3. MVI per MD approval given wound healing 4. malnutrition ed prior to d/c 5. new scaled wt for more accurate wt hx Addendum: 07/17/19 at [address] Amended: Links added.
[2019-07-17 18:00] VITALS: BP 101/52
[2019-07-17] MEDS ORDERED: VANCOMYCIN LEVEL IV ONE (21:30)
[2019-07-17 22:00] VITALS: BP 118/59
--- NOTE | 2019-07-17 22:08 | NUR ---
CRITICAL LAB; [facility] TROUGH 29.6, WILL HOLD 2200 DOSE, MD NOTIFIED. PHARMACY TO ADJUST NEXT DOSE.
[2019-07-18] MEDS: HYDROcodone/acetaminophen 10/325mg tab PO PRN ×4 (02:53→22:01)
[2019-07-18 06:00] VITALS: BP 121/70
--- NOTE | 2019-07-18 06:33 | NUR ---
REPORT GIVEN TO LAURA LUCAS.
[2019-07-18 06:44] LABS: BASOPHILS # (AUTO) 0.1 X10'3 (0-0.2); BASOPHILS % (AUTO) 0.5 % (0-1); EOSINOPHILS # (AUTO) 0.2 X10'3 (0-0.9); EOSINOPHILS % (AUTO) 1.8 % (0-6); HEMATOCRIT 31.9 % (35.0-45.0); HEMOGLOBIN 10.1 g/dl (12.0-16.0); LYMPHOCYTES # (AUTO) 0.9 X10'3 (1.1-4.8); LYMPHOCYTES % (AUTO) 8.4 % (21-51); MEAN CORPUSCULAR HEMOGLOBIN 28.8 PG (27.0-31.0); MEAN CORPUSCULAR HGB CONC 31.8 g/dL (33.0-36.5); MEAN CORPUSCULAR VOLUME 90.6 FL (78-98); MEAN PLATELET VOLUME 8.7 FL (7.4-10.4); MONOCYTES # (AUTO) 0.8 X10'3 (0-0.9); MONOCYTES % (AUTO) 7.6 % (2-12); NEUTROPHILS # (AUTO) 9.2 X10'3 (1.8-7.7); NEUTROPHILS % (AUTO) 81.7 % (42-75); PLATELET COUNT 306 X10'3 (140-440); RED BLOOD COUNT 3.52 X10'6 (4.20-5.60); RED CELL DISTRIBUTION WIDTH 19.2 % (11.5-14.5); WHITE BLOOD COUNT 11.2 X10'3 (4.5-11.0)
[2019-07-18 06:56] LABS: ALANINE AMINOTRANSFERASE 11 U/L (12-78); ALBUMIN 1.9 G/DL (3.4-5.0); ALBUMIN/GLOBULIN RATIO 0.3 (1.1-1.5); ALKALINE PHOSPHATASE 200 IU/L (46-116); ANION GAP 7 (8-16); ASPARTATE AMINO TRANSFERASE 23 U/L (10-37); BILIRUBIN,TOTAL 0.6 MG/DL (0.1-1.0); BLOOD UREA NITROGEN 45 MG/DL (7-18); BUN/CREATININE RATIO 25.1 (6.6-38.0); CALCIUM 8.3 MG/DL (8.5-10.1); CHLORIDE 103 MMOL/L (99-107); CREATININE 1.79 MG/DL (0.40-0.90); MAGNESIUM 2.2 MG/DL (1.5-2.4); POTASSIUM 4.9 MMOL/L (3.5-5.1); SODIUM 138 MMOL/L (135-145); TOTAL CARBON DIOXIDE 28.5 MMOL/L (24-32); TOTAL PROTEIN 8.4 G/DL (6.4-8.2); eGFR 29 ML/MIN
[2019-07-18 06:57] LABS: GLUCOSE 92 MG/DL (70-104)
[2019-07-18] MEDS: K and/or MAG REPLACEMENT MC SCH (08:00)
[2019-07-18] MEDS: nicotine 14mg patch - 24hr TD SCH (08:00)
[2019-07-18] MEDS: heparin, porcine 5000 units/ml vial SQ SCH (08:00)
[2019-07-18] MEDS: apixaban 5mg tablet PO SCH ×2 (08:00→19:44)
[2019-07-18] MEDS: docusate sod 100mg capsule PO SCH ×2 (09:33→19:44)
[2019-07-18] MEDS: lactobacillus rhamnosus 10,000 MMU CELLS/CAPSULE PO SCH ×2 (09:33→19:44)
[2019-07-18] MEDS: furosemide 20MG tablet PO SCH (09:34)
[2019-07-18 10:09] LABS: ANISOCYTOSIS 2+; NUCLEATED RED BLOOD CELLS 1 /100WBC (0-0); PLATELET ESTIMATE NORMAL; TOTAL CELLS COUNTED 100
[2019-07-18 10:10] LABS: HYPOCHROMASIA 1+; POLYCHROMASIA FEW
[2019-07-18] MEDS: VANCOmycin 1250MG/NS 250ml Bag 250 ML IV SCH ×2 (12:14→21:47)
[2019-07-18] MEDS: nystatin 15 GM powder TP SCH ×3 (12:22→21:47)
--- NOTE | 2019-07-18 12:50 | NUR ---
F/u: Pt seen by RD for written/verbal malnutrition ed, verbal high protein ed, ONS Coupons, and RD contact information provided. Pt declines additional proteins at this time. present during RD visit and agrees to MVI given healing needs and is adding more bowel care since pt reports LBM 07/12. RD encouraged pt to have son bring in premier protein from home if pt decides to try them. Babar trigger: Babar 12. Pt admit w/ anasarca, CKD III, chronic lymphedema to BLE, RLE extensive cellulitis, large blister to right foot, and multiple decubitus areas to bilateral buttock and posterior thigh. PO 100% heart healthy meals good intake first meals. Pt current wt 189kg though no wt documented in EMR and prior admit last June was 137kg. Double proteins TIDWM added given extensive healing needs; dietary notified. Pt has severe weakness, BLE/bilateral scleral +4 edema present, and given morbid obesity w/ impaired skin integrity and hx pt qualifies for severe malnutrition r/t morbid obesity at this time; MD notified. Pt unable to wake during RD visit for written/verbal malnutrition eds. Will need eds once appropriate prior to d/c. Will continue to monitor for additional protein needs. Rec: 1. continue heart healthy diet; double proteins TIDWM 2. monitor for additional protein needs 3. MVI for wound healing 4. new scaled wt for more accurate wt hx Addendum: 07/18/19 at [address] Amended: Links added.
[2019-07-18 18:00] VITALS: BP 121/61
--- NOTE | 2019-07-18 18:57 | NUR ---
Spoke with pharmacist Reggie r/gloria retiming of Vanco and Vanco trough. Using "rule of halves", the Vanco was hung 6hours late, (because of loss of PIV), which falls within the time frame, so carry on as usual and the next trough will extrapolate the new dosing.
[2019-07-18] MEDS: furosemide 20 MG/2 ML vial IV SCH (19:44)
[2019-07-18] MEDS: magnesium hydroxide 30ml (MOM) UD suspension PO PRN (19:44)
[2019-07-18] MEDS ORDERED: VANCOMYCIN LEVEL IV ONE (20:30)
[2019-07-18] MEDS: ondansetron/PF 4mg/2ml inj IV PRN (21:58)
[2019-07-18 22:00] VITALS: BP 126/78
[2019-07-19] VITALS (13 sets, daily range): BP systolic 109–139; BP diastolic 49–82
--- NOTE | 2019-07-19 01:15 | NUR ---
unable to perform orthostatic vs due to pt is unable to stand. Addendum: 07/19/19 at 0120 by Yelena Harden RN Amended: Links added.
--- NOTE | 2019-07-19 01:16 | NUR ---
pt unable to stand, Rashid-Bed is ordered, awaiting arrival will be able to achieve daily wts. Addendum: 07/19/19 at 0120 by Yelena Harden RN Amended: Links added.
--- NOTE | 2019-07-19 01:17 | NUR ---
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 Addendum: 07/19/19 at 0120 by Yelena Harden RN Amended: Links added.
--- NOTE | 2019-07-19 03:14 | NUR ---
Pt was given routine colace and PRN MOM for bowel tx. Also was given a warm prune juice cocktail. She was able to have a ex-large bowel movement and BS are active in all 4 quadrants. She has had 4 episodes of emesis this evening, 150ml x2 and 674oli2 brown and watery like the prune juice, and now dry heaves, all episodes with large amount of thick phlegm which makes her gag. Zofran given for nausea which was effective for last 5 hours. [place] given for pain, which pt believes is causing the nausea. After 2nd episode and Zofran, RN restricted her diet to clear liquid. Pt has only had water the last five hours.
[2019-07-19] MEDS: ondansetron/PF 4mg/2ml inj IV PRN (03:53)
[2019-07-19] MEDS: HYDROcodone/acetaminophen 10/325mg tab PO PRN (03:54)
--- NOTE | 2019-07-19 04:34 | NUR ---
NOTIFIED DR AMBROSE R/T PT HAVING N/V; NEW ORDER FOR REGLAN 10MG IV Q6HRS PRN .
[2019-07-19] MEDS: metoclopramide 5 mg/ml inj IV PRN ×2 (04:39→11:13)
[2019-07-19 05:44] LABS: BASOPHILS # (AUTO) 0.1 X10'3 (0-0.2); BASOPHILS % (AUTO) 0.5 % (0-1); EOSINOPHILS # (AUTO) 0.2 X10'3 (0-0.9); EOSINOPHILS % (AUTO) 1.3 % (0-6); HEMATOCRIT 33.9 % (35.0-45.0); HEMOGLOBIN 10.7 g/dl (12.0-16.0); LYMPHOCYTES # (AUTO) 0.7 X10'3 (1.1-4.8); LYMPHOCYTES % (AUTO) 6.2 % (21-51); MEAN CORPUSCULAR HEMOGLOBIN 28.9 PG (27.0-31.0); MEAN CORPUSCULAR HGB CONC 31.7 g/dL (33.0-36.5); MEAN CORPUSCULAR VOLUME 91.1 FL (78-98); MEAN PLATELET VOLUME 8.4 FL (7.4-10.4); MONOCYTES # (AUTO) 0.8 X10'3 (0-0.9); MONOCYTES % (AUTO) 6.6 % (2-12); NEUTROPHILS # (AUTO) 10.1 X10'3 (1.8-7.7); NEUTROPHILS % (AUTO) 85.4 % (42-75); PLATELET COUNT 337 X10'3 (140-440); RED BLOOD COUNT 3.72 X10'6 (4.20-5.60); RED CELL DISTRIBUTION WIDTH 19.2 % (11.5-14.5); WHITE BLOOD COUNT 11.9 X10'3 (4.5-11.0)
[2019-07-19 06:02] LABS: ALANINE AMINOTRANSFERASE 18 U/L (12-78); ALBUMIN 2.1 G/DL (3.4-5.0); ALBUMIN/GLOBULIN RATIO 0.3 (1.1-1.5); ALKALINE PHOSPHATASE 219 IU/L (46-116); ANION GAP 7 (8-16); ASPARTATE AMINO TRANSFERASE 20 U/L (10-37); BILIRUBIN,TOTAL 0.7 MG/DL (0.1-1.0); BLOOD UREA NITROGEN 43 MG/DL (7-18); CALCIUM 8.5 MG/DL (8.5-10.1); CHLORIDE 105 MMOL/L (99-107); CREATININE 1.72 MG/DL (0.40-0.90); MAGNESIUM 2.4 MG/DL (1.5-2.4); POTASSIUM 4.8 MMOL/L (3.5-5.1); SODIUM 144 MMOL/L (135-145); TOTAL PROTEIN 8.9 G/DL (6.4-8.2); eGFR 31 ML/MIN
[2019-07-19 06:03] LABS: GLUCOSE 114 MG/DL (70-104)
--- NOTE | 2019-07-19 06:25 | NUR ---
Patient in room ORTHO 4013. I have received report from Yelena SANCHEZ and had the opportunity to ask questions and assume patient care.
--- NOTE | 2019-07-19 06:36 | NUR ---
REPORT GIVEN TO LAURA SALAS.
[2019-07-19] MEDS: lactobacillus rhamnosus 10,000 MMU CELLS/CAPSULE PO SCH ×2 (08:00→19:14)
[2019-07-19] MEDS: K and/or MAG REPLACEMENT MC SCH (08:00)
[2019-07-19] MEDS: apixaban 5mg tablet PO SCH ×2 (08:00→19:14)
[2019-07-19] MEDS: docusate sod 100mg capsule PO SCH ×2 (08:00→19:14)
[2019-07-19] MEDS: nystatin 15 GM powder TP SCH ×3 (08:00→21:00)
[2019-07-19] MEDS: nicotine 14mg patch - 24hr TD SCH (08:00)
[2019-07-19 08:17] LABS: PLATELET ESTIMATE NORMAL
[2019-07-19 08:18] LABS: ANISOCYTOSIS 2+; POLYCHROMASIA FEW
[2019-07-19 08:21] LABS: STOMATOCYTES 1+
[2019-07-19] MEDS ORDERED: HYDROmorphone 2mg/ml vial IV PRN (08:35)
[2019-07-19] MEDS ORDERED: proCHLORperazine 10 MG/2 ml inj IV PRN (08:35)
[2019-07-19] MEDS: famotidine/PF 10 mg/ml inj IV SCH ×2 (08:56→19:13)
[2019-07-19] MEDS: furosemide 20 MG/2 ML vial IV SCH (08:59)
[2019-07-19] MEDS ORDERED: HYDROmorphone 1 mg/ml syringe IV PRN (09:19)
[2019-07-19] MEDS ORDERED: ipratropium/albuterol 3ml nebule NEB PRN (09:30)
[2019-07-19 10:15] LABS: ABG BASE EXCESS 4.6 mmol/L (-2.0-3.0); ABG HCO3 32.9 mmol/L (22.0-26.0); ABG PH (T) 7.302 (7.350-7.450); ABG PO2 (T) 61.2 mmHg (83-108); ALLEN'S TEST Positive; FCOHb 1.6 % (0.5-1.5); FLOW 6 L/min; FMetHb 0.1 % (0.3-1.12); FO2Hb 88.5 % (94-100); TOTAL HEMOGLOBIN 12.5 G/dl (12.0-16.0)
--- NOTE | 2019-07-19 10:27 | NUR ---
PAGER ID: [phone] MESSAGE: RE: [id number]. ABG results. pH:7.302, CO2:68, HCO3:32.9, pO2:61. RT recommending Bipap . JOSUE [id number]
[2019-07-19] MEDS ORDERED: methylPREDNISolone sod succ 125mg/2ml vial IV ONE (10:35)
[2019-07-19] MEDS: VANCOmycin 1250MG/NS 250ml Bag 250 ML IV SCH (11:05)
[2019-07-19] MEDS: ipratropium/albuterol 3ml nebule NEB SCH ×4 (11:30→23:16)
--- NOTE | 2019-07-19 11:50 | NUR ---
Report called to Reshma on PCU, patient being transferred down to 3021 now.
[2019-07-19 14:21] LABS: ABG BASE EXCESS 3.4 mmol/L (-2.0-3.0); ABG HCO3 30.7 mmol/L (22.0-26.0); ABG OXYGEN SATURATION 97.1 % (95-98); ABG PCO2 (T) 61.2 mmHg (35.0-45.0); ABG PH (T) 7.318 (7.350-7.450); ABG PO2 (T) 93.6 mmHg (83-108); ALLEN'S TEST Positive; FCOHb 1.1 % (0.5-1.5); FMetHb 0.1 % (0.3-1.12); FO2Hb 95.9 % (94-100); RESPIRATORY RATE 20 b/min; TOTAL HEMOGLOBIN 10.7 G/dl (12.0-16.0)
[2019-07-19] MEDS: methylPREDNISolone sod succ 125mg/2ml vial IV SCH ×2 (14:48→19:13)
[2019-07-19] MEDS: HYDROcodone/acetaminophen 5mg/325mg tablet PO PRN ×2 (15:57→20:23)
--- NOTE | 2019-07-19 18:00 | NUR ---
Patient in room PCU 3023. I have received report from Yulissa SANCHEZ and had the opportunity to ask questions and assume patient care.
--- NOTE | 2019-07-19 18:31 | NUR ---
Page sent to Dr. Tracey PAGER ID: [phone] MESSAGE: [id number] Brittany aFn, Echo was cancelled from this AM. Do you want to order an echocardiogram? Thank you MINISTERIO Larose
--- NOTE | 2019-07-19 18:32 | NUR ---
Problems reprioritized. Patient report given, questions answered & plan of care reviewed with geoff.
[2019-07-19] MEDS: furosemide 40mg/4ml inj IV SCH (19:13)
[2019-07-19] MEDS ORDERED: VANCOMYCIN LEVEL IV ONE (20:30)
--- NOTE | 2019-07-19 21:05 | NUR ---
Vanco 35.3 After notifying the pharmacy about the critical high vancomycin trough 35.3, vancomycin was held for tonight. Another Vancomycin trough is scheduled for AM shift.
[2019-07-20] VITALS (11 sets, daily range): BP systolic 100–124; BP diastolic 52–81
[2019-07-20] MEDS: methylPREDNISolone sod succ 125mg/2ml vial IV SCH ×4 (01:02→20:50)
--- NOTE | 2019-07-20 03:28 | NUR ---
PAGER ID: [phone] MESSAGE: [id number] Brittany Fan: Patient has had a simon catheter since 07/17/19, there is no order. Patient is morbidly obese, MS, numerous pressure ulcers and wounds. Would you like me to put in an order?
[2019-07-20] MEDS: HYDROcodone/acetaminophen 5mg/325mg tablet PO PRN ×2 (05:23→16:26)
--- NOTE | 2019-07-20 05:58 | NUR ---
END NOC NOTE Patient slept well tonight, FIO2 now 45%, does well off bipap for meals for 15 min. on 2L nasal cannula. Patient refused repositioning tonight stating she wouldn't like to be repositioned because "I would like to get some sleep tonight". Would care was done on Right leg, nystatin was placed in appropriate folds, and optifoams in place. Will continue to monitor.
[2019-07-20 05:59] LABS: BASOPHILS % (AUTO) 0.1 % (0-1); EOSINOPHILS % (AUTO) 0 % (0-6); HEMATOCRIT 34.5 % (35.0-45.0); HEMOGLOBIN 10.9 g/dl (12.0-16.0); LYMPHOCYTES # (AUTO) 0.5 X10'3 (1.1-4.8); LYMPHOCYTES % (AUTO) 3.8 % (21-51); MEAN CORPUSCULAR HEMOGLOBIN 28.7 PG (27.0-31.0); MEAN CORPUSCULAR HGB CONC 31.6 g/dL (33.0-36.5); MEAN CORPUSCULAR VOLUME 91.1 FL (78-98); MEAN PLATELET VOLUME 8.4 FL (7.4-10.4); MONOCYTES # (AUTO) 0.2 X10'3 (0-0.9); MONOCYTES % (AUTO) 1.5 % (2-12); NEUTROPHILS # (AUTO) 11.4 X10'3 (1.8-7.7); NEUTROPHILS % (AUTO) 94.6 % (42-75); PLATELET COUNT 292 X10'3 (140-440); RED BLOOD COUNT 3.78 X10'6 (4.20-5.60); RED CELL DISTRIBUTION WIDTH 19.1 % (11.5-14.5)
[2019-07-20 06:14] LABS: ALANINE AMINOTRANSFERASE 11 U/L (12-78); ALBUMIN/GLOBULIN RATIO 0.3 (1.1-1.5); ALKALINE PHOSPHATASE 199 IU/L (46-116); ANION GAP 6 (8-16); ASPARTATE AMINO TRANSFERASE 16 U/L (10-37); BILIRUBIN,TOTAL 0.6 MG/DL (0.1-1.0); BLOOD UREA NITROGEN 42 MG/DL (7-18); BUN/CREATININE RATIO 25.8 (6.6-38.0); CALCIUM 8.6 MG/DL (8.5-10.1); CHLORIDE 106 MMOL/L (99-107); CREATININE 1.63 MG/DL (0.40-0.90); MAGNESIUM 2.3 MG/DL (1.5-2.4); SODIUM 145 MMOL/L (135-145); TOTAL CARBON DIOXIDE 33.4 MMOL/L (24-32); TOTAL PROTEIN 8.4 G/DL (6.4-8.2); eGFR 33 ML/MIN
[2019-07-20 06:15] LABS: GLUCOSE 126 MG/DL (70-104)
--- NOTE | 2019-07-20 06:15 | NUR ---
Patient in room PCU 3023. I have received report from Maureen SANCHEZ and had the opportunity to ask questions and assume patient care.
--- NOTE | 2019-07-20 06:32 | NUR ---
Problems reprioritized. Patient report given, questions answered & plan of care reviewed with Fortunato SANCHEZ.
[2019-07-20] MEDS: ipratropium/albuterol 3ml nebule NEB SCH ×5 (07:13→23:19)
[2019-07-20 07:24] LABS: ANISOCYTOSIS 2+; PLATELET ESTIMATE NORMAL
[2019-07-20 07:25] LABS: HYPOCHROMASIA 1+; POLYCHROMASIA FEW
[2019-07-20 07:26] LABS: STOMATOCYTES 1+
[2019-07-20] MEDS: lactobacillus rhamnosus 10,000 MMU CELLS/CAPSULE PO SCH ×2 (07:48→20:49)
[2019-07-20] MEDS: furosemide 40mg/4ml inj IV SCH ×2 (07:48→20:49)
[2019-07-20] MEDS: apixaban 5mg tablet PO SCH ×2 (07:48→20:49)
[2019-07-20] MEDS: docusate sod 100mg capsule PO SCH ×2 (07:48→20:49)
[2019-07-20] MEDS: famotidine/PF 10 mg/ml inj IV SCH ×2 (07:48→20:49)
[2019-07-20] MEDS: nicotine 14mg patch - 24hr TD SCH (07:59)
[2019-07-20] MEDS: nystatin 15 GM powder TP SCH ×3 (08:00→21:33)
[2019-07-20] MEDS: K and/or MAG REPLACEMENT MC SCH (08:00)
[2019-07-20] MEDS: vancomycin inj. 750 MG in normal saline 250ml IV soln 250 ML IV SCH ×2 (09:31→21:33)
--- NOTE | 2019-07-20 18:10 | NUR ---
Problems reprioritized. Patient report given, questions answered & plan of care reviewed with Grayson SANCHEZ.
--- NOTE | 2019-07-20 18:44 | NUR ---
Patient in room PCU 3026C. I have received report from LAURA Bucio and had the opportunity to ask questions and assume patient care. Patient asleep for bedside report. Oxygen saturation 88% on 2L NC. Stable at this time. Will continue to monitor closely.
[2019-07-20] MEDS: HYDROcodone/acetaminophen 10/325mg tab PO PRN (21:31)
[2019-07-21] MEDS: methylPREDNISolone sod succ 125mg/2ml vial IV SCH ×3 (02:28→13:32)
[2019-07-21] MEDS: HYDROcodone/acetaminophen 10/325mg tab PO PRN ×4 (02:49→18:35)
[2019-07-21 03:00] VITALS: BP 112/59
[2019-07-21 05:32] LABS: BASOPHILS % (AUTO) 0.1 % (0-1); EOSINOPHILS % (AUTO) 0 % (0-6); HEMATOCRIT 32.8 % (35.0-45.0); HEMOGLOBIN 10.2 g/dl (12.0-16.0); LYMPHOCYTES # (AUTO) 0.3 X10'3 (1.1-4.8); LYMPHOCYTES % (AUTO) 1.9 % (21-51); MEAN CORPUSCULAR HEMOGLOBIN 28.2 PG (27.0-31.0); MEAN CORPUSCULAR HGB CONC 31.1 g/dL (33.0-36.5); MEAN CORPUSCULAR VOLUME 90.9 FL (78-98); MEAN PLATELET VOLUME 8.4 FL (7.4-10.4); MONOCYTES # (AUTO) 0.4 X10'3 (0-0.9); MONOCYTES % (AUTO) 2.3 % (2-12); NEUTROPHILS # (AUTO) 17.2 X10'3 (1.8-7.7); NEUTROPHILS % (AUTO) 95.7 % (42-75); PLATELET COUNT 287 X10'3 (140-440); RED BLOOD COUNT 3.61 X10'6 (4.20-5.60); RED CELL DISTRIBUTION WIDTH 19.1 % (11.5-14.5)
--- NOTE | 2019-07-21 06:00 | NUR ---
Patient in room PCU 3023. I have received report from Grayson and had the opportunity to ask questions and assume patient care.
[2019-07-21 06:06] LABS: ALANINE AMINOTRANSFERASE 6 U/L (12-78); ALBUMIN/GLOBULIN RATIO 0.3 (1.1-1.5); ALKALINE PHOSPHATASE 175 IU/L (46-116); ANION GAP 5 (8-16); ASPARTATE AMINO TRANSFERASE 16 U/L (10-37); BILIRUBIN,TOTAL 0.6 MG/DL (0.1-1.0); BLOOD UREA NITROGEN 40 MG/DL (7-18); BUN/CREATININE RATIO 26.1 (6.6-38.0); CALCIUM 8.3 MG/DL (8.5-10.1); CHLORIDE 103 MMOL/L (99-107); CREATININE 1.53 MG/DL (0.40-0.90); GLUCOSE 142 MG/DL (70-104); MAGNESIUM 2.3 MG/DL (1.5-2.4); POTASSIUM 4.4 MMOL/L (3.5-5.1); SODIUM 141 MMOL/L (135-145); TOTAL CARBON DIOXIDE 32.7 MMOL/L (24-32); TOTAL PROTEIN 8.2 G/DL (6.4-8.2); eGFR 35 ML/MIN
--- NOTE | 2019-07-21 06:37 | NUR ---
Problems reprioritized. Patient report given, questions answered & plan of care reviewed with LAURA Larose.
[2019-07-21 07:00] VITALS: BP 112/59
[2019-07-21 07:10] LABS: ANISOCYTOSIS 2+; PLATELET ESTIMATE NORMAL; STOMATOCYTES 1+
[2019-07-21 07:11] LABS: POLYCHROMASIA FEW
[2019-07-21] MEDS: ipratropium/albuterol 3ml nebule NEB SCH ×4 (07:15→19:15)
[2019-07-21] MEDS: furosemide 40mg/4ml inj IV SCH ×2 (07:55→19:26)
[2019-07-21] MEDS: lactobacillus rhamnosus 10,000 MMU CELLS/CAPSULE PO SCH ×2 (07:55→19:26)
[2019-07-21] MEDS: famotidine/PF 10 mg/ml inj IV SCH (07:55)
[2019-07-21] MEDS: apixaban 5mg tablet PO SCH ×2 (07:55→19:25)
[2019-07-21] MEDS: docusate sod 100mg capsule PO SCH ×2 (07:56→19:24)
[2019-07-21] MEDS: nystatin 15 GM powder TP SCH ×3 (07:56→21:00)
[2019-07-21] MEDS: nicotine 14mg patch - 24hr TD SCH (07:57)
[2019-07-21] MEDS: K and/or MAG REPLACEMENT MC SCH (08:13)
[2019-07-21] MEDS: vancomycin inj. 750 MG in normal saline 250ml IV soln 250 ML IV SCH ×2 (09:34→21:00)
[2019-07-21 10:15] LABS: ABG BASE EXCESS 7.5 mmol/L (-2.0-3.0); ABG HCO3 33.9 mmol/L (22.0-26.0); ABG PCO2 (T) 56.6 mmHg (35.0-45.0); ABG PH (T) 7.395 (7.350-7.450); ABG PO2 (T) 54.9 mmHg (83-108); ALLEN'S TEST Positive; FCOHb 0.9 % (0.5-1.5); FLOW 4 L/min; FMetHb 0.1 % (0.3-1.12); FO2Hb 87.1 % (94-100); TOTAL HEMOGLOBIN 11.7 G/dl (12.0-16.0)
[2019-07-21 11:00] VITALS: BP 118/64
[2019-07-21 15:00] VITALS: BP 122/63
--- NOTE | 2019-07-21 15:24 | NUR ---
reassessment: Pt PO initially 75% avg now declined to 0-25% past 1-2 days not meeting needs. Noted to be on bipap more often r/t ABG as well. ALISIA d/w RN who reports pt stated lower appetite r/t burning when swallowing and has been started on pepcid by MD; no sores in mouth noted as well. Pt placed on 2L fluid-restriction in addition to heart healthy diet but no specific dietary allotment noted. Per RN, approves 1L from dietary and diet to be edited to reflect this. Given poor PO and malnutrition status ensure enlive BIDLD would be beneficial givne pt additional needs; pending updated diet order prior to ONS at this time. LBM 07/19. Will continue to monitor for additional protein needs this admit. Rec: 1. continue 2L fluid-restricted/heart healthy diet per MD; double proteins TIDWM 2. ensure enlive BIDLD pending diet order update for 1L from dietary 3. MVI for wound healing 4. weekly wts Addendum: 07/21/19 at [address] Amended: Links added.
--- NOTE | 2019-07-21 16:17 | NUR ---
Patient in room PCU 3023. I have received report from LAURA Larose and had the opportunity to ask questions and assume patient care.
--- NOTE | 2019-07-21 16:44 | NUR ---
Patient refusing bipap despite education on CO2 retention.
--- NOTE | 2019-07-21 18:26 | NUR ---
Problems reprioritized. Patient report given, questions answered & plan of care reviewed with LAURA Galicia.
--- NOTE | 2019-07-21 18:42 | NUR ---
Patient in room PCU 3028n. I have received report from LAURA Guidry and had the opportunity to ask questions and assume patient care. Patient on 4L NC while consuming evening meal. Continuous bipap orders noted. Patient stable at this time. Will continue to monitor closely.
[2019-07-21 18:56] VITALS: BP 115/56
[2019-07-21] MEDS: famotidine 20mg tablet PO SCH (19:26)
[2019-07-21] MEDS ORDERED: VANCOMYCIN LEVEL IV ONE (20:30)
--- NOTE | 2019-07-21 21:48 | NUR ---
PAGER ID: [phone] MESSAGE: [phone], LAURA Galicia. Patient in 302 Admit 07/16 for acute respiratory failure. Has high vancomycin trough 32.1. Scheduled 2100 dose held. Thank you!
--- NOTE | 2019-07-21 22:16 | NUR ---
Dr. Frazier called to floor. Orders to follow pharmacy protocol obtained. Keren in pharmacy notified and will hold 2100 dose of Vancomycin.
[2019-07-21 23:00] VITALS: BP 98/46
[2019-07-22] VITALS (8 sets, daily range): BP systolic 105–170; BP diastolic 52–84
[2019-07-22] MEDS: ipratropium/albuterol 3ml nebule NEB SCH ×6 (00:07→23:00)
[2019-07-22] MEDS: HYDROcodone/acetaminophen 10/325mg tab PO PRN ×4 (00:40→19:34)
[2019-07-22] MEDS: methylPREDNISolone sod succ 125mg/2ml vial IV SCH ×3 (00:41→19:32)
--- NOTE | 2019-07-22 04:19 | NUR ---
Dr. Frazier up to PCU and made aware of patient's HR high 30's low 40's while sleeping. No new orders at this time. Will continue to monitor closely.
--- NOTE | 2019-07-22 06:20 | NUR ---
Problems reprioritized. Patient report given, questions answered & plan of care reviewed with LAURA Larose.
--- NOTE | 2019-07-22 07:20 | NUR ---
PAGER ID: [phone] MESSAGE: [id number] Brittany Fan, Patients HR has been dropping into the 30's frequently. Patient is asymptomatic. All other vital signs stable. Lachelle U [id number]
--- NOTE | 2019-07-22 07:49 | NUR ---
Patient in room PCU 3023. I have received report from Grayson and had the opportunity to ask questions and assume patient care.
[2019-07-22] MEDS: famotidine 20mg tablet PO SCH ×2 (07:52→19:32)
[2019-07-22] MEDS: docusate sod 100mg capsule PO SCH ×2 (07:52→19:32)
[2019-07-22] MEDS: lactobacillus rhamnosus 10,000 MMU CELLS/CAPSULE PO SCH ×2 (07:52→19:32)
[2019-07-22] MEDS: furosemide 40mg/4ml inj IV SCH (07:52)
[2019-07-22] MEDS: apixaban 5mg tablet PO SCH ×2 (07:52→19:32)
[2019-07-22] MEDS: nicotine 14mg patch - 24hr TD SCH (08:00)
[2019-07-22] MEDS: K and/or MAG REPLACEMENT MC SCH (08:00)
--- NOTE | 2019-07-22 08:10 | NUR ---
Dr. Reid at bedside, reviewed EKG results, current medications and assessed patient. Obtained orders for CBC, CMP. No other new orders noted.
[2019-07-22 09:10] LABS: BASOPHILS % (AUTO) 0 % (0-1); EOSINOPHILS % (AUTO) 0 % (0-6); HEMATOCRIT 36.2 % (35.0-45.0); HEMOGLOBIN 11.4 g/dl (12.0-16.0); LYMPHOCYTES # (AUTO) 0.3 X10'3 (1.1-4.8); MEAN CORPUSCULAR HEMOGLOBIN 28.5 PG (27.0-31.0); MEAN CORPUSCULAR HGB CONC 31.4 g/dL (33.0-36.5); MEAN CORPUSCULAR VOLUME 90.9 FL (78-98); MEAN PLATELET VOLUME 8.2 FL (7.4-10.4); MONOCYTES # (AUTO) 0.4 X10'3 (0-0.9); MONOCYTES % (AUTO) 3.2 % (2-12); NEUTROPHILS # (AUTO) 12.1 X10'3 (1.8-7.7); NEUTROPHILS % (AUTO) 94.8 % (42-75); PLATELET COUNT 298 X10'3 (140-440); RED BLOOD COUNT 3.98 X10'6 (4.20-5.60); RED CELL DISTRIBUTION WIDTH 19.5 % (11.5-14.5); WHITE BLOOD COUNT 12.8 X10'3 (4.5-11.0)
[2019-07-22] MEDS: vancomycin/NS 1 GM ADD-VANTAGE 250 ML IV SCH (09:37)
[2019-07-22 09:48] LABS: ALANINE AMINOTRANSFERASE 14 U/L (12-78); ALBUMIN 2.4 G/DL (3.4-5.0); ALBUMIN/GLOBULIN RATIO 0.4 (1.1-1.5); ALKALINE PHOSPHATASE 181 IU/L (46-116); ANION GAP 2 (8-16); ASPARTATE AMINO TRANSFERASE 18 U/L (10-37); BILIRUBIN,TOTAL 0.6 MG/DL (0.1-1.0); BLOOD UREA NITROGEN 43 MG/DL (7-18); BUN/CREATININE RATIO 25.9 (6.6-38.0); CALCIUM 8.5 MG/DL (8.5-10.1); CHLORIDE 104 MMOL/L (99-107); CREATININE 1.66 MG/DL (0.40-0.90); POTASSIUM 4.4 MMOL/L (3.5-5.1); SODIUM 143 MMOL/L (135-145); TOTAL CARBON DIOXIDE 37.1 MMOL/L (24-32); eGFR 32 ML/MIN
[2019-07-22 09:51] LABS: GLUCOSE 139 MG/DL (70-104); VANCOMYCIN,RANDOM 26.1 UG/ML
[2019-07-22] MEDS: nystatin 15 GM powder TP SCH ×3 (09:51→21:35)
[2019-07-22 10:35] LABS: ANISOCYTOSIS 2+; PLATELET ESTIMATE NORMAL; POIKILOCYTOSIS FEW; POLYCHROMASIA FEW; STOMATOCYTES 1+; TARGET CELLS FEW
--- NOTE | 2019-07-22 18:39 | NUR ---
Problems reprioritized. Patient report given, questions answered & plan of care reviewed with Nadeen
--- NOTE | 2019-07-22 18:51 | NUR ---
Patient in room PCU 3023. I have received report from Lachelle SANCHEZ and had the opportunity to ask questions and assume patient care.
[2019-07-22] MEDS: magnesium hydroxide 30ml (MOM) UD suspension PO PRN (19:33)
[2019-07-23] MEDS: HYDROcodone/acetaminophen 10/325mg tab PO PRN ×5 (01:16→21:23)
[2019-07-23 02:00] VITALS: BP 122/63
[2019-07-23 06:00] VITALS: BP 127/61
--- NOTE | 2019-07-23 07:25 | NUR ---
Problems reprioritized. Patient report given, questions answered & plan of care reviewed with Jojo SANCHEZ.
[2019-07-23] MEDS: lactobacillus rhamnosus 10,000 MMU CELLS/CAPSULE PO SCH ×2 (07:41→20:32)
[2019-07-23] MEDS: methylPREDNISolone sod succ 125mg/2ml vial IV SCH ×2 (07:42→20:32)
[2019-07-23] MEDS: vancomycin/NS 1 GM ADD-VANTAGE 250 ML IV SCH (07:42)
[2019-07-23] MEDS: docusate sod 100mg capsule PO SCH ×2 (07:42→20:32)
[2019-07-23] MEDS: famotidine 20mg tablet PO SCH ×2 (07:42→17:46)
[2019-07-23] MEDS: apixaban 5mg tablet PO SCH ×2 (07:42→20:32)
[2019-07-23] MEDS: nicotine 14mg patch - 24hr TD SCH (07:43)
[2019-07-23] MEDS: ipratropium/albuterol 3ml nebule NEB SCH ×5 (07:57→23:19)
[2019-07-23 08:00] VITALS: BP 114/50
[2019-07-23] MEDS: K and/or MAG REPLACEMENT MC SCH (08:00)
[2019-07-23] MEDS: furosemide 40mg/4ml inj IV SCH (08:00)
[2019-07-23] MEDS: nystatin 15 GM powder TP SCH ×3 (11:36→20:32)
[2019-07-23 16:53] LABS: BASOPHILS # (AUTO) 0.1 X10'3 (0-0.2); BASOPHILS % (AUTO) 0.3 % (0-1); EOSINOPHILS % (AUTO) 0.1 % (0-6); HEMATOCRIT 35.7 % (35.0-45.0); HEMOGLOBIN 11.1 g/dl (12.0-16.0); LYMPHOCYTES # (AUTO) 0.2 X10'3 (1.1-4.8); LYMPHOCYTES % (AUTO) 1.1 % (21-51); MEAN CORPUSCULAR HEMOGLOBIN 28.1 PG (27.0-31.0); MEAN CORPUSCULAR VOLUME 90.4 FL (78-98); MEAN PLATELET VOLUME 8.6 FL (7.4-10.4); MONOCYTES # (AUTO) 0.4 X10'3 (0-0.9); MONOCYTES % (AUTO) 2.6 % (2-12); NEUTROPHILS # (AUTO) 15.6 X10'3 (1.8-7.7); NEUTROPHILS % (AUTO) 95.9 % (42-75); PLATELET COUNT 261 X10'3 (140-440); RED BLOOD COUNT 3.95 X10'6 (4.20-5.60); RED CELL DISTRIBUTION WIDTH 19.2 % (11.5-14.5); WHITE BLOOD COUNT 16.3 X10'3 (4.5-11.0)
[2019-07-23 17:05] LABS: ALBUMIN 2.4 G/DL (3.4-5.0); ANION GAP 3 (8-16); BLOOD UREA NITROGEN 48 MG/DL (7-18); BUN/CREATININE RATIO 31.6 (6.6-38.0); CALCIUM 8.9 MG/DL (8.5-10.1); CHLORIDE 102 MMOL/L (99-107); CREATININE 1.52 MG/DL (0.40-0.90); POTASSIUM 4.1 MMOL/L (3.5-5.1); SODIUM 142 MMOL/L (135-145); TOTAL CARBON DIOXIDE 36.9 MMOL/L (24-32); eGFR 35 ML/MIN
[2019-07-23 17:06] LABS: GLUCOSE 148 MG/DL (70-104)
[2019-07-23 17:21] LABS: ANISOCYTOSIS 2+; PLATELET ESTIMATE NORMAL; POIKILOCYTOSIS FEW; TARGET CELLS FEW
[2019-07-23] MEDS: bisacodyl 10mg suppository rectal RC PRN (17:43)
[2019-07-23 18:00] VITALS: BP 125/50
--- NOTE | 2019-07-23 18:15 | NUR ---
Problems reprioritized. Patient report given, questions answered & plan of care reviewed with LAURA Senior.
--- NOTE | 2019-07-23 19:25 | NUR ---
1800 unable to perform orthostaic vitals. Pt deferred orthostats.
--- NOTE | 2019-07-23 19:44 | NUR ---
Patient in room PCU 3023. I have received report from Jojo SANCHEZ and had the opportunity to ask questions and assume patient care.
[2019-07-23 20:00] VITALS: BP 125/52
[2019-07-23 22:00] VITALS: BP 114/59
[2019-07-23] MEDS: mag hydrox/Alum hydrox/simeth 30ml oral suspension PO PRN (22:07)
[2019-07-24] MEDS: magnesium hydroxide 30ml (MOM) UD suspension PO PRN (00:36)
[2019-07-24] MEDS: HYDROcodone/acetaminophen 10/325mg tab PO PRN ×3 (01:36→21:15)
[2019-07-24 02:00] VITALS: BP 122/58
[2019-07-24] MEDS: famotidine 20mg tablet PO SCH ×2 (05:56→20:53)
[2019-07-24 06:00] VITALS: BP 124/66
--- NOTE | 2019-07-24 06:54 | NUR ---
Patient in room PCU 3023. I have received report from LAURA Senior and had the opportunity to ask questions and assume patient care.
[2019-07-24] MEDS: ipratropium/albuterol 3ml nebule NEB SCH ×5 (07:43→23:47)
--- NOTE | 2019-07-24 07:51 | NUR ---
Problems reprioritized. Patient report given, questions answered & plan of care reviewed with Kika SANCHEZ.
[2019-07-24] MEDS: nicotine 14mg patch - 24hr TD SCH (08:00)
[2019-07-24] MEDS: K and/or MAG REPLACEMENT MC SCH (08:00)
[2019-07-24] MEDS: vancomycin/NS 1 GM ADD-VANTAGE 250 ML IV SCH (08:00)
[2019-07-24] MEDS: lactobacillus rhamnosus 10,000 MMU CELLS/CAPSULE PO SCH ×2 (08:59→20:53)
[2019-07-24] MEDS: apixaban 5mg tablet PO SCH ×2 (08:59→20:53)
[2019-07-24] MEDS: docusate sod 100mg capsule PO SCH ×2 (08:59→20:53)
[2019-07-24] MEDS: methylPREDNISolone sod succ 125mg/2ml vial IV SCH (09:04)
[2019-07-24] MEDS: furosemide 40mg/4ml inj IV SCH (09:04)
[2019-07-24] MEDS: pantoprazole 40mg Tablet.DR PO SCH (10:10)
[2019-07-24 10:48] LABS: BASOPHILS % (AUTO) 0.1 % (0-1); EOSINOPHILS % (AUTO) 0 % (0-6); HEMATOCRIT 37.4 % (35.0-45.0); HEMOGLOBIN 11.7 g/dl (12.0-16.0); LYMPHOCYTES # (AUTO) 0.2 X10'3 (1.1-4.8); LYMPHOCYTES % (AUTO) 1.3 % (21-51); MEAN CORPUSCULAR HEMOGLOBIN 28.4 PG (27.0-31.0); MEAN CORPUSCULAR HGB CONC 31.3 g/dL (33.0-36.5); MEAN CORPUSCULAR VOLUME 90.8 FL (78-98); MEAN PLATELET VOLUME 8.7 FL (7.4-10.4); MONOCYTES # (AUTO) 0.6 X10'3 (0-0.9); MONOCYTES % (AUTO) 4.2 % (2-12); NEUTROPHILS # (AUTO) 13.6 X10'3 (1.8-7.7); NEUTROPHILS % (AUTO) 94.4 % (42-75); PLATELET COUNT 231 X10'3 (140-440); RED BLOOD COUNT 4.12 X10'6 (4.20-5.60); RED CELL DISTRIBUTION WIDTH 19.6 % (11.5-14.5); WHITE BLOOD COUNT 14.4 X10'3 (4.5-11.0)
[2019-07-24 10:51] LABS: ALBUMIN 2.6 G/DL (3.4-5.0); ANION GAP 6 (8-16); BLOOD UREA NITROGEN 48 MG/DL (7-18); BUN/CREATININE RATIO 33.1 (6.6-38.0); CALCIUM 8.6 MG/DL (8.5-10.1); CHLORIDE 103 MMOL/L (99-107); CREATININE 1.45 MG/DL (0.40-0.90); GLUCOSE 149 MG/DL (70-104); POTASSIUM 4.2 MMOL/L (3.5-5.1); SODIUM 144 MMOL/L (135-145); TOTAL CARBON DIOXIDE 35.3 MMOL/L (24-32); eGFR 37 ML/MIN
[2019-07-24 11:00] VITALS: BP 131/55
[2019-07-24 11:13] LABS: ANISOCYTOSIS 2+; HYPOCHROMASIA 1+; PLATELET ESTIMATE NORMAL; POLYCHROMASIA FEW; TARGET CELLS FEW
[2019-07-24] MEDS: nystatin 15 GM powder TP SCH ×2 (12:02→21:00)
[2019-07-24] MEDS: HYDROcodone/acetaminophen 5mg/325mg tablet PO PRN (12:03)
--- NOTE | 2019-07-24 13:57 | NUR ---
promotional table spacer PAGER ID: [phone] MESSAGE: Asad [id number]. Radiology report from CT is available. Radiologist wanted an FYI regarding the report and Bilat Pleural effusions and mass on L kidney to be sent to you. Grecia [id number].
[2019-07-24] MEDS: nystatin 500,000 unit/5ML UD oral suspension PO SCH ×2 (14:10→20:52)
--- NOTE | 2019-07-24 14:34 | NUR ---
reassessment: Pt PO continues to decrease 0-25% lunch today still receiving double meats TID. Pt seen by ALISIA and reports continued epigastric pain/spasm when swallowing though pepcid has helped w/ burning. ALISIA [email or web address] MD regarding diet liberalization from fluid-restriction given low PO. Pt declined ONS at this time. LBM 07/19 receiving colace routinely along w/ MoM and dulcolax PRN. Continue to encouraged high pro ONS from son at home. Will continue to monitor. Rec: 1. advance to regular diet per MD; double proteins TIDWM 2. encourage PO; continue pepcid given GI symptoms per MD 3. MVI for wound healing 4. weekly wts Addendum: 07/24/19 at [address] Amended: Links added.
[2019-07-24 15:00] VITALS: BP 121/60
--- NOTE | 2019-07-24 16:58 | NUR ---
Unable to [id number] orthostatic vital signs on patient due to her unability to stand without PT.
[2019-07-24 18:00] VITALS: BP 91/62
--- NOTE | 2019-07-24 18:35 | NUR ---
Orientee documentation: I have reviewed and agree with interventions, assessments performed and documented by Radha. Orientdaniel Medication Administration: For this medication-pass time frame, medication were reviewed, dispensed, administered and documented per hospital policy by Radha Bellamy.
--- NOTE | 2019-07-24 18:36 | NUR ---
Problems reprioritized. Patient report given, questions answered & plan of care reviewed with LAURA Shannon.
--- NOTE | 2019-07-24 19:02 | NUR ---
Patient in room PCU 3023. I have received report from Grecia SANCHEZ and Zain SANCHEZ and had the opportunity to ask questions and assume patient care.
[2019-07-24 22:00] VITALS: BP 111/52
[2019-07-25 02:00] VITALS: BP 125/70
[2019-07-25] MEDS: HYDROcodone/acetaminophen 10/325mg tab PO PRN ×3 (04:49→20:03)
--- NOTE | 2019-07-25 05:25 | NUR ---
07/24/19 2100 dose of nystop not pulled from omnicell because pt still had one at bedside that was used for wound care. Non-admin of medication because of this.
[2019-07-25 06:00] VITALS: BP 110/57
--- NOTE | 2019-07-25 06:30 | NUR ---
Problems reprioritized. Patient report given, questions answered & plan of care reviewed with Sierra RN.
--- NOTE | 2019-07-25 06:38 | NUR ---
Problems reprioritized. Patient report given, questions answered & plan of care reviewed with Sierra RN.
--- NOTE | 2019-07-25 06:40 | NUR ---
Patient in room PCU 3023. I have received report from LAURA Florence and had the opportunity to ask questions and assume patient care.
[2019-07-25] MEDS: ipratropium/albuterol 3ml nebule NEB SCH ×5 (07:01→23:00)
[2019-07-25] MEDS ORDERED: VANCOMYCIN LEVEL IV ONE (07:30)
[2019-07-25 08:00] VITALS: BP 110/57
[2019-07-25] MEDS: nicotine 14mg patch - 24hr TD SCH (08:00)
[2019-07-25] MEDS: K and/or MAG REPLACEMENT MC SCH (08:00)
[2019-07-25] MEDS: pantoprazole 40mg Tablet.DR PO SCH (08:07)
[2019-07-25] MEDS: famotidine 20mg tablet PO SCH ×2 (08:07→20:02)
[2019-07-25] MEDS: nystatin 500,000 unit/5ML UD oral suspension PO SCH ×2 (08:07→14:03)
[2019-07-25] MEDS: docusate sod 100mg capsule PO SCH ×2 (08:07→20:02)
[2019-07-25] MEDS: apixaban 5mg tablet PO SCH ×2 (08:08→20:02)
[2019-07-25] MEDS: lactobacillus rhamnosus 10,000 MMU CELLS/CAPSULE PO SCH ×2 (08:08→20:02)
[2019-07-25] MEDS: furosemide 40mg/4ml inj IV SCH (08:08)
[2019-07-25] MEDS: methylPREDNISolone sod succ/PF 40mg inj. IV SCH (08:09)
[2019-07-25] MEDS: nystatin 15 GM powder TP SCH ×2 (08:09→14:04)
[2019-07-25] MEDS: vancomycin/NS 1 GM ADD-VANTAGE 250 ML IV SCH (08:35)
[2019-07-25] MEDS: bisacodyl 10mg suppository rectal RC PRN (14:48)
[2019-07-25 15:00] VITALS: BP 107/48
[2019-07-25 18:00] VITALS: BP 138/77
--- NOTE | 2019-07-25 18:20 | NUR ---
Problems reprioritized. Patient report given, questions answered & plan of care reviewed with LAURA Cueto and LAURA Warren.
--- NOTE | 2019-07-25 18:45 | NUR ---
Patient in room PCU 3023. I have received report from Sierra SANCHEZ and had the opportunity to ask questions and assume patient care.
[2019-07-25] MEDS: ondansetron/PF 4mg/2ml inj IV PRN (20:02)
[2019-07-25] MEDS: mag hydrox/Alum hydrox/simeth 30ml oral suspension PO PRN (20:59)
[2019-07-25 22:00] VITALS: BP 100/54
[2019-07-26] VITALS (7 sets, daily range): BP systolic 96–121; BP diastolic 55–71
[2019-07-26] MEDS: nystatin 500,000 unit/5ML UD oral suspension PO SCH ×4 (00:36→22:28)
[2019-07-26] MEDS: nystatin 15 GM powder TP SCH ×4 (00:36→22:27)
[2019-07-26] MEDS: HYDROcodone/acetaminophen 10/325mg tab PO PRN ×6 (00:40→17:33)
[2019-07-26 06:01] LABS: BASOPHILS % (AUTO) 0 % (0-1); EOSINOPHILS # (AUTO) 0.1 X10'3 (0-0.9); HEMATOCRIT 37.2 % (35.0-45.0); HEMOGLOBIN 11.5 g/dl (12.0-16.0); LYMPHOCYTES # (AUTO) 0.3 X10'3 (1.1-4.8); LYMPHOCYTES % (AUTO) 2.2 % (21-51); MEAN CORPUSCULAR HEMOGLOBIN 28.1 PG (27.0-31.0); MEAN CORPUSCULAR HGB CONC 30.9 g/dL (33.0-36.5); MEAN CORPUSCULAR VOLUME 90.9 FL (78-98); MONOCYTES # (AUTO) 0.6 X10'3 (0-0.9); MONOCYTES % (AUTO) 4.2 % (2-12); NEUTROPHILS # (AUTO) 12.6 X10'3 (1.8-7.7); NEUTROPHILS % (AUTO) 92.6 % (42-75); PLATELET COUNT 222 X10'3 (140-440); RED BLOOD COUNT 4.09 X10'6 (4.20-5.60); WHITE BLOOD COUNT 13.6 X10'3 (4.5-11.0)
[2019-07-26 06:19] LABS: ALANINE AMINOTRANSFERASE 12 U/L (12-78); ALBUMIN 2.4 G/DL (3.4-5.0); ALBUMIN/GLOBULIN RATIO 0.4 (1.1-1.5); ALKALINE PHOSPHATASE 166 IU/L (46-116); ANION GAP 6 (8-16); ASPARTATE AMINO TRANSFERASE 21 U/L (10-37); BILIRUBIN,TOTAL 0.8 MG/DL (0.1-1.0); BLOOD UREA NITROGEN 44 MG/DL (7-18); BUN/CREATININE RATIO 31.4 (6.6-38.0); CALCIUM 8.6 MG/DL (8.5-10.1); CHLORIDE 104 MMOL/L (99-107); GLUCOSE 115 MG/DL (70-104); MAGNESIUM 2.7 MG/DL (1.5-2.4); SODIUM 145 MMOL/L (135-145); TOTAL CARBON DIOXIDE 35.5 MMOL/L (24-32); eGFR 39 ML/MIN
--- NOTE | 2019-07-26 06:24 | NUR ---
Problems reprioritized. Patient report given, questions answered & plan of care reviewed with Lachelle SANCHEZ.
--- NOTE | 2019-07-26 06:25 | NUR ---
Orientee documentation: I have reviewed and agree with all interventions, assessments performed and documented by Kelvin SANCHEZ.
[2019-07-26 06:28] LABS: POTASSIUM 4.2 MMOL/L (3.5-5.1)
--- NOTE | 2019-07-26 06:28 | NUR ---
Patient in room PCU 3023. I have received report from Dom and had the opportunity to ask questions and assume patient care.
[2019-07-26 06:49] LABS: ANISOCYTOSIS 2+; PLATELET ESTIMATE NORMAL
[2019-07-26] MEDS: ipratropium/albuterol 3ml nebule NEB SCH ×5 (07:27→23:00)
[2019-07-26] MEDS: K and/or MAG REPLACEMENT MC SCH (08:00)
[2019-07-26] MEDS: nicotine 14mg patch - 24hr TD SCH (08:00)
[2019-07-26] MEDS: pantoprazole 40mg Tablet.DR PO SCH (08:25)
[2019-07-26] MEDS: famotidine 20mg tablet PO SCH ×2 (08:26→22:25)
[2019-07-26] MEDS: methylPREDNISolone sod succ/PF 40mg inj. IV SCH (08:27)
[2019-07-26] MEDS: apixaban 5mg tablet PO SCH ×2 (08:27→22:24)
[2019-07-26] MEDS: docusate sod 100mg capsule PO SCH ×2 (08:27→22:23)
[2019-07-26] MEDS: lactobacillus rhamnosus 10,000 MMU CELLS/CAPSULE PO SCH ×2 (08:27→22:23)
[2019-07-26] MEDS: furosemide 40mg/4ml inj IV SCH ×2 (08:28→22:30)
[2019-07-26] MEDS: linezolid 600mg tablet PO SCH ×2 (08:29→22:24)
--- NOTE | 2019-07-26 13:54 | NUR ---
non morse intercept technician reported spo2 in the 70's. Patient has been in the 90's throughout the day on 6/L via NC. Patient is completely asymptomatic. PRN Bipap applied until patient participated with PT. Sp02 has been within range with each patient contact. Patient denies any symptoms. Will continue to monitor.
[2019-07-26 14:35] LABS: CLARITY,URINE CLOUDY (Clear); COLOR,URINE STRAW (Yellow); GLUCOSE, URINE NEGATIVE (Neg); KETONES,URINE NEGATIVE (Neg); LEUKOCYTE ESTERASE ,URINE SMALL (Neg); NITRITES, URINE NEGATIVE (Neg); OCCULT BLOOD,URINE LARGE (Neg); PH,URINE 5.5 (4.8-8.0); PROTEIN,URINE NEGATIVE (Neg); UROBILINOGEN,URINE 0.2 E.U/dL (0.2-1.0)
[2019-07-26 14:36] LABS: UA COLLECTION TYPE NON-SPECIFIED
[2019-07-26 14:41] LABS: BACTERIA,URINE 3+ /HPF (Neg); RBC,URINE TNTC /HPF (0-2); URIC ACID CRYSTALS 1+ /HPF (NEGATIVE)
[2019-07-26 14:42] LABS: SQUAMOUS EPITHELIAL CELL,UR FEW /LPF (FEW)
--- NOTE | 2019-07-26 15:42 | NUR ---
zyvox consult: Pt started on zyvox and seen by ALISIA for written/verbal zyvox ed. Pt reports pain meds hour prior to PO gets rid of throat pain w/ meals and ate 5 bites of breakfast improving. Pt son is bringing in juice and food from outside which pt snacks on as well. Still likely not meeting needs w/ PO 0-25% meals majority of admit. ALISIA spok.Marketo MD and d/w MD regarding regular diet until PO improves; MD agrees and pt now on regular diet. Pt requests deleon yakut ice TIDWM, hot chocolate at breakfast, and grilled cheese at lunches; declines removal of double proteins even though low PO. Dietary notified of food preferences. RD encouraged pt to have son bring in premier proteins from home. Ensure pudding TIDWM added for additional protein/kcal needs. Will continue to monitor. Rec: 1. continue regular diet per MD 2. encourage PO; continue pepcid given GI symptoms per MD 3. MVI for wound healing 4. ensure pudding TIDWM 5. weekly wts Addendum: 07/26/19 at [address] Amended: Links added.
[2019-07-26] MEDS: lactose-reduced food (Ensure High Protein) 237ml bottle PO SCH (18:00)
--- NOTE | 2019-07-26 18:22 | NUR ---
[facility] [phone] MESSAGE: [phone] KUSH Mayen results are in, culture and sensitivity pending. MINISTERIO Larose
--- NOTE | 2019-07-26 18:23 | NUR ---
Problems reprioritized. Patient report given, questions answered & plan of care reviewed with Dom.
--- NOTE | 2019-07-26 18:25 | NUR ---
Patient in room PCU 3023. I have received report from Lachelle SANCHEZ and had the opportunity to ask questions and assume patient care.
--- NOTE | 2019-07-26 18:29 | NUR ---
Patient in room PCU 3023. I have received report from Lachelle SANCHEZ and had the opportunity to ask questions and assume patient care.
--- NOTE | 2019-07-26 20:20 | NUR ---
Patient in room PCU 3023. I have received report from Kelvin SANCHEZ and had the opportunity to ask questions and assume patient care. Patient is resting in bed, has no immediate needs, will continue to monitor.
--- NOTE | 2019-07-26 20:21 | NUR ---
Problems reprioritized. Patient report given, questions answered & plan of care reviewed with Yasmin SANCHEZ.
[2019-07-26] MEDS: furosemide 20 MG/2 ML vial IV SCH (22:29)
[2019-07-27 04:21] LABS: BASOPHILS % (AUTO) 0.1 % (0-1); EOSINOPHILS # (AUTO) 0.1 X10'3 (0-0.9); EOSINOPHILS % (AUTO) 0.7 % (0-6); HEMATOCRIT 40.1 % (35.0-45.0); HEMOGLOBIN 12.4 g/dl (12.0-16.0); LYMPHOCYTES # (AUTO) 0.3 X10'3 (1.1-4.8); LYMPHOCYTES % (AUTO) 3.9 % (21-51); MEAN CORPUSCULAR HEMOGLOBIN 28.5 PG (27.0-31.0); MEAN CORPUSCULAR HGB CONC 31.1 g/dL (33.0-36.5); MEAN CORPUSCULAR VOLUME 91.8 FL (78-98); MEAN PLATELET VOLUME 9.3 FL (7.4-10.4); MONOCYTES # (AUTO) 0.5 X10'3 (0-0.9); NEUTROPHILS % (AUTO) 89.3 % (42-75); PLATELET COUNT 227 X10'3 (140-440); RED BLOOD COUNT 4.36 X10'6 (4.20-5.60); RED CELL DISTRIBUTION WIDTH 19.3 % (11.5-14.5)
[2019-07-27 04:40] LABS: ALANINE AMINOTRANSFERASE 17 U/L (12-78); ALBUMIN 2.8 G/DL (3.4-5.0); ALBUMIN/GLOBULIN RATIO 0.5 (1.1-1.5); ALKALINE PHOSPHATASE 191 IU/L (46-116); ANION GAP 7 (8-16); ASPARTATE AMINO TRANSFERASE 15 U/L (10-37); BILIRUBIN,TOTAL 0.8 MG/DL (0.1-1.0); BLOOD UREA NITROGEN 44 MG/DL (7-18); BUN/CREATININE RATIO 28.8 (6.6-38.0); CALCIUM 8.8 MG/DL (8.5-10.1); CHLORIDE 103 MMOL/L (99-107); CREATININE 1.53 MG/DL (0.40-0.90); GLUCOSE 112 MG/DL (70-104); MAGNESIUM 2.6 MG/DL (1.5-2.4); PHOSPHORUS 3.2 MG/DL (2.3-4.5); POTASSIUM 4.7 MMOL/L (3.5-5.1); SODIUM 149 MMOL/L (135-145); TOTAL CARBON DIOXIDE 38.8 MMOL/L (24-32); eGFR 35 ML/MIN
[2019-07-27] MEDS: HYDROcodone/acetaminophen 10/325mg tab PO PRN ×5 (04:56→23:50)
--- NOTE | 2019-07-27 06:00 | NUR ---
Patient in room PCU 3023. I have received report from Yasmin and had the opportunity to ask questions and assume patient care.
[2019-07-27 07:00] VITALS: BP 126/58
[2019-07-27] MEDS: ipratropium/albuterol 3ml nebule NEB SCH ×5 (07:19→23:43)
[2019-07-27] MEDS: lactose-reduced food (Ensure High Protein) 237ml bottle PO SCH ×3 (07:48→18:00)
[2019-07-27] MEDS: lactobacillus rhamnosus 10,000 MMU CELLS/CAPSULE PO SCH ×2 (07:48→20:46)
[2019-07-27] MEDS: docusate sod 100mg capsule PO SCH ×2 (07:48→20:47)
[2019-07-27] MEDS: pantoprazole 40mg Tablet.DR PO SCH (07:48)
[2019-07-27] MEDS: methylPREDNISolone sod succ/PF 40mg inj. IV SCH (07:49)
[2019-07-27] MEDS: famotidine 20mg tablet PO SCH ×2 (07:49→20:47)
[2019-07-27] MEDS: apixaban 5mg tablet PO SCH ×2 (07:49→20:47)
[2019-07-27] MEDS: nystatin 15 GM powder TP SCH ×3 (07:49→20:47)
[2019-07-27] MEDS: nystatin 500,000 unit/5ML UD oral suspension PO SCH ×3 (07:49→20:47)
[2019-07-27] MEDS: linezolid 600mg tablet PO SCH ×2 (07:49→20:47)
[2019-07-27] MEDS: furosemide 20 MG/2 ML vial IV SCH (08:00)
[2019-07-27] MEDS: nicotine 14mg patch - 24hr TD SCH (08:00)
[2019-07-27] MEDS: K and/or MAG REPLACEMENT MC SCH (08:00)
--- NOTE | 2019-07-27 10:45 | NUR ---
Spoke with Dr. Landa regarding current Lasix order. stated to continue lasix 60 mg po BID. Also informed him of >100K negative rods in urine and current orders for Zyvox. stated, "Will follow"
[2019-07-27 11:00] VITALS: BP 122/64
[2019-07-27] MEDS: furosemide 40mg/4ml inj IV SCH ×2 (11:12→20:47)
[2019-07-27 15:00] VITALS: BP 112/43
--- NOTE | 2019-07-27 18:15 | NUR ---
Patient in room PCU 3023. I have received report from Yulissa SANCHEZ and had the opportunity to ask questions and assume patient care. Patient resting in bed, will continue to monitor.
--- NOTE | 2019-07-27 18:30 | NUR ---
Problems reprioritized. Patient report given, questions answered & plan of care reviewed with Yasmin.
[2019-07-27 19:00] VITALS: BP 101/46
[2019-07-27 23:00] VITALS: BP 115/57
[2019-07-28] MEDS: HYDROcodone/acetaminophen 10/325mg tab PO PRN ×3 (05:28→19:12)
[2019-07-28 05:29] LABS: BASOPHILS % (AUTO) 0.2 % (0-1); EOSINOPHILS # (AUTO) 0.1 X10'3 (0-0.9); EOSINOPHILS % (AUTO) 1.4 % (0-6); HEMATOCRIT 35.5 % (35.0-45.0); HEMOGLOBIN 11.2 g/dl (12.0-16.0); LYMPHOCYTES # (AUTO) 0.3 X10'3 (1.1-4.8); LYMPHOCYTES % (AUTO) 3.2 % (21-51); MEAN CORPUSCULAR HEMOGLOBIN 28.7 PG (27.0-31.0); MEAN CORPUSCULAR HGB CONC 31.5 g/dL (33.0-36.5); MEAN PLATELET VOLUME 9.5 FL (7.4-10.4); MONOCYTES % (AUTO) 9.9 % (2-12); NEUTROPHILS # (AUTO) 8.5 X10'3 (1.8-7.7); NEUTROPHILS % (AUTO) 85.3 % (42-75); PLATELET COUNT 230 X10'3 (140-440); RED CELL DISTRIBUTION WIDTH 18.3 % (11.5-14.5); WHITE BLOOD COUNT 9.9 X10'3 (4.5-11.0)
[2019-07-28 05:46] LABS: ALANINE AMINOTRANSFERASE 15 U/L (12-78); ALBUMIN 2.3 G/DL (3.4-5.0); ALBUMIN/GLOBULIN RATIO 0.4 (1.1-1.5); ALKALINE PHOSPHATASE 165 IU/L (46-116); ANION GAP 2 (8-16); ASPARTATE AMINO TRANSFERASE 15 U/L (10-37); BILIRUBIN,TOTAL 0.7 MG/DL (0.1-1.0); BLOOD UREA NITROGEN 44 MG/DL (7-18); BUN/CREATININE RATIO 30.8 (6.6-38.0); CALCIUM 8.4 MG/DL (8.5-10.1); CHLORIDE 104 MMOL/L (99-107); CREATININE 1.43 MG/DL (0.40-0.90); GLUCOSE 115 MG/DL (70-104); MAGNESIUM 2.4 MG/DL (1.5-2.4); PHOSPHORUS 2.6 MG/DL (2.3-4.5); POTASSIUM 4.1 MMOL/L (3.5-5.1); SODIUM 147 MMOL/L (135-145); TOTAL PROTEIN 7.5 G/DL (6.4-8.2); eGFR 38 ML/MIN
--- NOTE | 2019-07-28 06:12 | NUR ---
Patient in room PCU 3023. I have received report from Yasmin and had the opportunity to ask questions and assume patient care.
--- NOTE | 2019-07-28 06:31 | NUR ---
Lab called with critical CO2 41.0. Patient is now on 4L NC and has been staying above 88%. Called Dr. John to make him aware of the results. He advised me to pass information on to the daytime nurse and hospitalist.
[2019-07-28 07:00] VITALS: BP 115/58
[2019-07-28] MEDS: lactobacillus rhamnosus 10,000 MMU CELLS/CAPSULE PO SCH ×2 (07:16→22:13)
[2019-07-28] MEDS: docusate sod 100mg capsule PO SCH ×2 (07:16→22:12)
[2019-07-28] MEDS: pantoprazole 40mg Tablet.DR PO SCH (07:16)
[2019-07-28] MEDS: furosemide 40mg/4ml inj IV SCH ×2 (07:16→22:12)
[2019-07-28] MEDS: nystatin 500,000 unit/5ML UD oral suspension PO SCH ×3 (07:16→22:12)
[2019-07-28] MEDS: linezolid 600mg tablet PO SCH ×2 (07:16→22:13)
[2019-07-28] MEDS: famotidine 20mg tablet PO SCH ×2 (07:16→22:13)
[2019-07-28] MEDS: apixaban 5mg tablet PO SCH ×2 (07:16→22:12)
[2019-07-28] MEDS: nystatin 15 GM powder TP SCH ×3 (07:17→21:00)
[2019-07-28] MEDS: lactose-reduced food (Ensure High Protein) 237ml bottle PO SCH ×3 (08:00→18:00)
[2019-07-28] MEDS: nicotine 14mg patch - 24hr TD SCH (08:00)
[2019-07-28] MEDS: K and/or MAG REPLACEMENT MC SCH (08:00)
--- NOTE | 2019-07-28 08:08 | NUR ---
PAGER ID: [phone] MESSAGE: [id number] Brittany Fan, Pt. c/o increased pain to RLE. Tyson wrap removed. Pt. requesting to increase [place] 10/325 mg to 2 tablets. Lachelle SANCHEZ, PCU 0254
[2019-07-28] MEDS: ipratropium/albuterol 3ml nebule NEB SCH ×5 (08:17→22:58)
[2019-07-28 11:00] VITALS: BP 99/58
[2019-07-28] MEDS ORDERED: HYDROcodone/acetaminophen 10/325mg tab PO PRN (11:10)
[2019-07-28 14:42] VITALS: BP 99/58
[2019-07-28 15:00] VITALS: BP 100/60
[2019-07-28 18:00] VITALS: BP 104/47
--- NOTE | 2019-07-28 18:04 | NUR ---
Problems reprioritized. Patient report given, questions answered & plan of care reviewed with Yasmin.
--- NOTE | 2019-07-28 18:15 | NUR ---
Patient in room PCU 3023. I have received report from Yulissa SANCHEZ and had the opportunity to ask questions and assume patient care. Patient in lying in bed, requesting pain medication for the pain in her legs. Will continue to monitor.
[2019-07-28 22:00] VITALS: BP 123/54
[2019-07-29 02:00] VITALS: BP 102/54
[2019-07-29] MEDS: HYDROcodone/acetaminophen 10/325mg tab PO PRN ×3 (02:45→15:32)
[2019-07-29 04:49] LABS: BASOPHILS % (AUTO) 0.2 % (0-1); EOSINOPHILS # (AUTO) 0.4 X10'3 (0-0.9); EOSINOPHILS % (AUTO) 3.7 % (0-6); HEMATOCRIT 34.8 % (35.0-45.0); LYMPHOCYTES # (AUTO) 0.5 X10'3 (1.1-4.8); LYMPHOCYTES % (AUTO) 4.4 % (21-51); MEAN CORPUSCULAR HEMOGLOBIN 28.6 PG (27.0-31.0); MEAN CORPUSCULAR HGB CONC 31.7 g/dL (33.0-36.5); MEAN CORPUSCULAR VOLUME 90.2 FL (78-98); MEAN PLATELET VOLUME 9.5 FL (7.4-10.4); MONOCYTES # (AUTO) 1.1 X10'3 (0-0.9); NEUTROPHILS # (AUTO) 8.7 X10'3 (1.8-7.7); NEUTROPHILS % (AUTO) 81.7 % (42-75); PLATELET COUNT 243 X10'3 (140-440); RED BLOOD COUNT 3.85 X10'6 (4.20-5.60); RED CELL DISTRIBUTION WIDTH 18.9 % (11.5-14.5); WHITE BLOOD COUNT 10.7 X10'3 (4.5-11.0)
[2019-07-29 05:16] LABS: ALANINE AMINOTRANSFERASE 14 U/L (12-78); ALBUMIN 2.3 G/DL (3.4-5.0); ALBUMIN/GLOBULIN RATIO 0.5 (1.1-1.5); ALKALINE PHOSPHATASE 168 IU/L (46-116); ANION GAP 2 (8-16); ASPARTATE AMINO TRANSFERASE 13 U/L (10-37); BILIRUBIN,TOTAL 0.8 MG/DL (0.1-1.0); BLOOD UREA NITROGEN 43 MG/DL (7-18); BUN/CREATININE RATIO 29.7 (6.6-38.0); CALCIUM 8.2 MG/DL (8.5-10.1); CHLORIDE 101 MMOL/L (99-107); CREATININE 1.45 MG/DL (0.40-0.90); GLUCOSE 102 MG/DL (70-104); MAGNESIUM 2.3 MG/DL (1.5-2.4); PHOSPHORUS 2.6 MG/DL (2.3-4.5); POTASSIUM 3.7 MMOL/L (3.5-5.1); SODIUM 144 MMOL/L (135-145); TOTAL PROTEIN 7.3 G/DL (6.4-8.2); eGFR 37 ML/MIN
[2019-07-29 05:31] LABS: TOTAL CARBON DIOXIDE 40.7 MMOL/L (24-32)
--- NOTE | 2019-07-29 05:37 | NUR ---
Lab called with critical CO2 40.7, this value is down from yesterday when it was 41.0.
[2019-07-29 06:00] VITALS: BP 102/58
--- NOTE | 2019-07-29 06:10 | NUR ---
Patient in room PCU 3023. I have received report from Yasmin SANCHEZ and had the opportunity to ask questions and assume patient care.
[2019-07-29 06:12] LABS: ANISOCYTOSIS 2+; PLATELET ESTIMATE NORMAL; TARGET CELLS FEW
[2019-07-29 06:13] LABS: STOMATOCYTES 2+
--- NOTE | 2019-07-29 06:42 | NUR ---
Problems reprioritized. Patient report given, questions answered & plan of care reviewed with Fortunato SANCHEZ.
[2019-07-29] MEDS: lactobacillus rhamnosus 10,000 MMU CELLS/CAPSULE PO SCH (07:28)
[2019-07-29] MEDS: docusate sod 100mg capsule PO SCH (07:28)
[2019-07-29] MEDS: nystatin 500,000 unit/5ML UD oral suspension PO SCH ×2 (07:28→13:00)
[2019-07-29] MEDS: linezolid 600mg tablet PO SCH (07:29)
[2019-07-29] MEDS: famotidine 20mg tablet PO SCH (07:29)
[2019-07-29] MEDS: furosemide 40mg/4ml inj IV SCH (07:29)
[2019-07-29] MEDS: pantoprazole 40mg Tablet.DR PO SCH (07:29)
[2019-07-29] MEDS: apixaban 5mg tablet PO SCH (07:29)
[2019-07-29] MEDS: lactose-reduced food (Ensure High Protein) 237ml bottle PO SCH ×2 (08:00→13:26)
[2019-07-29] MEDS: K and/or MAG REPLACEMENT MC SCH (08:00)
[2019-07-29] MEDS: nystatin 15 GM powder TP SCH ×2 (08:00→13:26)
[2019-07-29] MEDS: nicotine 14mg patch - 24hr TD SCH (08:00)
[2019-07-29] MEDS: ipratropium/albuterol 3ml nebule NEB SCH (09:04)
--- NOTE | 2019-07-29 10:49 | NUR ---
Reassessment: Acute respiratory failure with hypercarbia and hypoxemia resolved and pt continues with BiPAP PRN per MD notes. Cellulitis much improved per MD notes. Patient's weight -33 kg since admit, seems unlikely given per documentation pt -8 kg in one day then minus an additional 18.3 kg the next day. Likely that patient's wt will fluctuate d/t changes in fluid status with edema, on Lasix, and with negative 9L fluid balance over the last 5 days per I&O; however not likely that pt has lost 33 kg during admission. Patient continues on regular diet with fluctuating PO intake with average 25% PO intake with 100% PO intake of a couple of recent meals. Pt also with 100% PO intake of Ensure High Protein TID. Likely still not meeting nutrient needs at this time however PO intake slowly improving. LBM 07/25, pt with routine Colace and MoM PRN last given 07/24 and Dulcolax suppository PRN las given 07/25, d/w dietary to send prunes with next meal to help with BM. Will continue to follow closely. Zyvox consult: Pt started on Zyvox and seen by RD for written/verbal zyvox ed. Pt reports pain meds hour prior to PO gets rid of throat pain w/ meals and ate 5 bites of breakfast improving. Pt son is bringing in juice and food from outside which pt snacks on as well. Still likely not meeting needs w/ PO 0-25% meals majority of admit. ALISIA spok.Doist MD and d/w MD regarding regular diet until PO improves; MD agrees and pt now on regular diet. Pt requests deleon [place] ice TIDWM, hot chocolate at breakfast, and grilled cheese at lunches; declines removal of double proteins even though low PO. Dietary notified of food preferences. RD encouraged pt to have son bring in premier proteins from home. Ensure pudding TIDWM added for additional protein/kcal needs. Will continue to monitor. Rec: 1. continue regular diet; monitor need for diet change to heart healthy if PO intake improves and is stable 2. encourage PO; continue Pepcid given GI symptoms per MD 3. MVI for wound healing 4. ensure pudding TIDWM; Ensure High Protein TID 5. weekly wts Addendum: 07/29/19 at [address] Amended: Links added.
[2019-07-29 11:00] VITALS: BP 101/53
[2019-07-29] MEDS ORDERED: FAMO20TA8 PO (12:45)
[2019-07-29] MEDS ORDERED: NYSPWD TP (12:45)
[2019-07-29] MEDS ORDERED: LINE600T14 PO (12:45)
[2019-07-29] MEDS ORDERED: LACT1CAP26 PO (12:45)
[2019-07-29] MEDS ORDERED: LACT-228 PO (12:45)
[2019-07-29] MEDS ORDERED: NICO-631 TD (12:45)
--- NOTE | 2019-07-29 14:00 | NUR ---
Pt's simon removed. 10ml removed from balloon. Simon removed, cath tip intact. Pt tolerated well. 500 ml of urine in drainage bag at DC
--- NOTE | 2019-07-29 15:45 | NUR ---
Pt DC'd home with son to [place]. IV removed, canula intact. Tele-box removed and returned to tele-tech. Pt stable and vitals WNL upon DC. DC paperwork gone over with Pt and son. Allowed Son and Pt to ask questions concerning DC paperwork and then answered them. New prescriptions called into [facility] pharmacy in [place]. Script given to Pt by Dr. Landa for [place] 5 #20 to fill at pharmacy of choice. Pt will call to make follow up appt with PCP at [facility] in [place]. Pt will also call to make follow up appt with wound care clinic in [place]. Pt's belongings gathered and sent with Pt. Pt wheeled down to lobby in wheelchair by nurse where both son and Pt left in private vehicle for home in [place].
== END 2019-07-29 16:09 | disposition home or self-care (01) | DRG 383 ==
LOC: ER 01:50 → ED HOLD 08:30 → EDBEDREQ 08:32 → ORTHO 4S 09:00 → PCU 3S 07-19 11:53
PROVIDERS: ADMIT Internal Medicine; ATTEND Family Medicine
PROC: B32T1ZZ Computerized Tomography (CT Scan) of Left Pulmonary Artery using Low Osmolar Contrast (ICD-10-PCS; 2019-07-16)
PROC: B3201ZZ Computerized Tomography (CT Scan) of Thoracic Aorta using Low Osmolar Contrast (ICD-10-PCS; 2019-07-16)
PROC: B32S1ZZ Computerized Tomography (CT Scan) of Right Pulmonary Artery using Low Osmolar Contrast (ICD-10-PCS; 2019-07-16)
PROC: 3E02340 Introduction of Influenza Vaccine into Muscle, Percutaneous Approach (ICD-10-PCS; 2019-07-17)
PROC: 5A09357 Assistance with Respiratory Ventilation, Less than 24 Consecutive Hours, Continuous Positive Airway Pressure (ICD-10-PCS; principal; 2019-07-19)
PROC: 5A09357 Assistance with Respiratory Ventilation, Less than 24 Consecutive Hours, Continuous Positive Airway Pressure (ICD-10-PCS; 2019-07-20)
PROC: 5A09357 Assistance with Respiratory Ventilation, Less than 24 Consecutive Hours, Continuous Positive Airway Pressure (ICD-10-PCS; 2019-07-21)
PROC: 5A09357 Assistance with Respiratory Ventilation, Less than 24 Consecutive Hours, Continuous Positive Airway Pressure (ICD-10-PCS; 2019-07-22)
PROC: 5A09357 Assistance with Respiratory Ventilation, Less than 24 Consecutive Hours, Continuous Positive Airway Pressure (ICD-10-PCS; 2019-07-26)
DX: L03.115 Cellulitis of right lower limb (principal); I21.A1 Myocardial infarction type 2; I82.221 Chronic embolism and thrombosis of inferior vena cava; L89.313 Pressure ulcer of right buttock, stage 3; J96.01 Acute respiratory failure with hypoxia; J96.02 Acute respiratory failure with hypercapnia; B37.0 Candidal stomatitis; G93.40 Encephalopathy, unspecified; L89.323 Pressure ulcer of left buttock, stage 3; E66.01 Morbid (severe) obesity due to excess calories; N18.4 Chronic kidney disease, stage 4 (severe); I50.23 Acute on chronic systolic (congestive) heart failure; G35 Multiple sclerosis; L03.116 Cellulitis of left lower limb; N28.1 Cyst of kidney, acquired; Z99.81 Dependence on supplemental oxygen; B96.1 Klebsiella pneumoniae [K. pneumoniae] as the cause of diseases classified elsewhere; F17.210 Nicotine dependence, cigarettes, uncomplicated; G89.29 Other chronic pain; I89.0 Lymphedema, not elsewhere classified; J44.9 Chronic obstructive pulmonary disease, unspecified; Z79.899 Other long term (current) drug therapy; Z90.710 Acquired absence of both cervix and uterus; Z23 Encounter for immunization; Z68.42 Body mass index [BMI] 45.0-49.9, adult
CPT/HCPCS: 36415; 36600; 70450; 71275; 74176; 76937; 80048; 80053; 80202; 81001; 82803; 83605; 83735; 83880; 84100; 84145; 84484; 85018; 85025; 85610; 85730; 87040; 87077; 87081; 87088; 87186; 93005; 93970; 94640; 94660; 94760; 96360; 97110; 97112; 97161; 97162; 97530; 97535; 99285; G0378; J0780; J1170; J1644; J1940; J2270; J2405; J2765; J2920; J2930; J3370; J3490; J7030; J7050; Q2037; Q9967

== ENCOUNTER 2019-10-06 02:56 | Inpatient (IN) | payer MEDICAID ==
[2019-10-06] VITALS (22 sets, daily range): BP systolic 94–157; BP diastolic 42–100
[~2019-10-06] VITALS: Ht 152.4 cm; Wt 131.2 kg
[~2019-10-06 02:56] MED LIST changes: +APIX5TAB3 PO; +FAMO20TA8 PO; +HYDR-4353 PO; +LACT-228 PO; +LACT1CAP26 PO; +LINE600T14 PO; -LISI40TA4 PO; -NAPR-1154 PO; +NICO-631 TD; +NYSPWD TP; -NYST15OI14 TP; -PER10325T PO
--- NOTE | 2019-10-06 03:12 | NUR ---
DAVONTE NAVA IN PROGRESS.
--- NOTE | 2019-10-06 03:13 | NUR ---
ABG IN PROGRESS.
[2019-10-06 03:21] LABS: ABG BASE EXCESS 2.5 mmol/L (-2.0-3.0); ABG HCO3 29.5 mmol/L (22.0-26.0); ABG OXYGEN SATURATION 88.4 % (95-98); ABG PCO2 (T) 52.3 mmHg (35.0-45.0); ABG PH (T) 7.355 (7.350-7.450); ABG PO2 (T) 50.5 mmHg (83-108); FCOHb 1.4 % (0.5-1.5); FLOW 15 L/min; FMetHb 0.1 % (0.3-1.12); FO2Hb 87.1 % (94-100); PATIENT TEMPERATURE 34.1; RESPIRATORY RATE (OBSERVED) 16 b/min; TOTAL HEMOGLOBIN 9.6 G/dl (12.0-16.0)
[2019-10-06 03:27] LABS: HEMOGLOBIN 8.3 g/dl (12.0-16.0); MEAN PLATELET VOLUME 8.4 FL (7.4-10.4); RED BLOOD COUNT 3.63 X10'6 (4.20-5.60)
[2019-10-06 03:28] LABS: HEMATOCRIT 27.6 % (35.0-45.0); MEAN CORPUSCULAR HGB CONC 30.2 g/dL (33.0-36.5); MEAN CORPUSCULAR VOLUME 76.1 FL (78-98); PLATELET COUNT 388 X10'3 (140-440); WHITE BLOOD COUNT 15.2 X10'3 (4.5-11.0)
[2019-10-06 03:47] LABS: ALANINE AMINOTRANSFERASE 10 U/L (12-78); ALBUMIN 1.9 G/DL (3.4-5.0); ALBUMIN/GLOBULIN RATIO 0.3 (1.1-1.5); ALKALINE PHOSPHATASE 190 IU/L (46-116); ANION GAP 0 (8-16); ASPARTATE AMINO TRANSFERASE 19 U/L (10-37); BILIRUBIN,TOTAL 0.7 MG/DL (0.1-1.0); BLOOD UREA NITROGEN 39 MG/DL (7-18); BUN/CREATININE RATIO 25.5 (6.6-38.0); CALCIUM 8.3 MG/DL (8.5-10.1); CHLORIDE 108 MMOL/L (99-107); CREATININE 1.53 MG/DL (0.40-0.90); GLUCOSE 103 MG/DL (70-104); POTASSIUM 4.2 MMOL/L (3.5-5.1); SODIUM 147 MMOL/L (135-145); TOTAL CARBON DIOXIDE 39.3 MMOL/L (24-32); TOTAL PROTEIN 7.6 G/DL (6.4-8.2); eGFR 35 ML/MIN
[2019-10-06 04:02] LABS: ANISOCYTOSIS 3+; HYPOCHROMASIA 3+; MICROCYTOSIS 1+; PLATELET ESTIMATE NORMAL; TOTAL CELLS COUNTED 100
[2019-10-06 04:03] LABS: POLYCHROMASIA FEW; STOMATOCYTES 1+
[2019-10-06 04:04] LABS: SPHEROCYTES FEW
[2019-10-06] MEDS: normal saline 1000ml 1,000 ML IV SCH ×2 (05:29→18:49)
[2019-10-06] MEDS ORDERED: potassium Cl 20 mEq SR tablet PO PRN ×2 (05:30)
[2019-10-06] MEDS: K, MAG and/or Phos replacement - Verify level? MC SCH ×2 (05:30→12:14)
[2019-10-06] MEDS ORDERED: potassium CL 10mEq/100ml bag 100 ML IV PRN (05:30)
[2019-10-06] MEDS ORDERED: morphine 2 MG/ML inj. syringe IV PRN (05:30)
[2019-10-06] MEDS ORDERED: acetaminophen 325mg tablet PO PRN ×2 (05:30)
[2019-10-06] MEDS ORDERED: ondansetron/PF 4mg/2ml inj IV PRN (05:30)
[2019-10-06] MEDS ORDERED: morphine 4 MG/ML inj SYRINge IV PRN (05:30)
--- NOTE | 2019-10-06 06:38 | NUR ---
RESTING IN POC, AWAKENS AND ALERT TO VERBAL. VSS. SPOKE WITH OR WHO WILL BE DOWN TO GET PT SOON DR. JOHNSON IN. NPO SINCE YESTERDAY 1300.
[2019-10-06] MEDS ORDERED: LIDOcaine 1% 30ml preserv. free vial ONE (06:39)
[2019-10-06] MEDS ORDERED: ROPIVAcaine 0.5% (5mg/ml) 30ml vial ONE (06:40)
[2019-10-06] MEDS ORDERED: BUPIVAcaine/PF 2.5 mg/ml (0.25%) 30ml vial ONE (06:40)
--- NOTE | 2019-10-06 07:06 | NUR ---
DR. JOHNSON AND DR. MATHIS AT BEDSIDE, OR STAFF HERE TO BRING PT TO OR.
[2019-10-06] MEDS ORDERED: fentaNYL /PF 50mcg/ml 5ml ampule ONE (07:10)
[2019-10-06] MEDS ORDERED: midazolam 2 mg/2 ml injection ONE (07:10)
[2019-10-06] MEDS ORDERED: etomidate 2mg/ml inj. ONE (07:12)
[2019-10-06] MEDS ORDERED: sevoflurane 250ml liquid IH ONE (07:12)
[2019-10-06] MEDS ORDERED: glycopyrrolate 0.2mg/ml inj ONE (07:12)
[2019-10-06] MEDS ORDERED: rocuronium 10mg/ml inj IV ONE (07:12)
--- NOTE | 2019-10-06 07:59 | NUR ---
PT REQUESTED I CALL HER SON TO ADVISE HIM SHE WAS GOING TO SURGERY. ATTEMPTED TO CALL SON JAYY [phone]. NO ANSWER, NO MAILBOX SET UP FOR MESSAGE.
[2019-10-06] MEDS ORDERED: pantoprazole 40 MG vial IV SCH (08:00)
[2019-10-06] MEDS ORDERED: midazolam 2 mg/2 ml injection IV ONE (08:15)
[2019-10-06] MEDS ORDERED: fentaNYL/PF 50MCG/1 ML 2ML syringe IV PRN (08:15)
[2019-10-06 08:41] LABS: ABG BASE EXCESS 6.6 mmol/L (-2.0-3.0); ABG HCO3 30.7 mmol/L (22.0-26.0); ABG OXYGEN SATURATION 99.4 % (95-98); ABG PCO2 (T) 44.3 mmHg (35.0-45.0); ABG PH (T) 7.463 (7.350-7.450); ABG PO2 (T) 231.7 mmHg (83-108); FCOHb 1.2 % (0.5-1.5); FMetHb 0.2 % (0.3-1.12); TOTAL HEMOGLOBIN 7.7 G/dl (12.0-16.0)
[2019-10-06 08:45] LABS: ISTAT CREATININE 1.5 mg/dL (0.6-1.1); ISTAT HGB 7.5 g/dl (12.0-16.0); ISTAT IONIZED CALCIUM 1.06 mmol/L (1.03-1.32); ISTAT K 3.8 mmol/L (3.5-5.1)
[2019-10-06] MEDS ORDERED: ipratropium/albuterol 3ml nebule NEB PRN (08:50)
[2019-10-06] MEDS ORDERED: pantoprazole 40 MG vial IV ONE (09:30)
--- NOTE | 2019-10-06 09:35 | NUR ---
Received from OR via BED , accompanied by Anesthesiologist DR MATHIS and report given by Anesthesiolgist, PATIENT SEDATED ON VENT SEE RT NOTE. 23CM AT GUM FOR ET TUBE,, NO S/S OF PAIN, V/S WNL, CSM INTACT, WV TO ABDOMEN DRESSING CDI AT 125 CONTINOUS SUCTION WITH NO LEAKS DETECTED WITH CAMILLE DRAIN INFERIOR TO THE WV WITH MINIMAL OUTPUT AT THIS TIME, SCD ON, 22G PIVX2 LUE, 18G LEFT IJ, CENTAL LINE TRIPLE LUMEN TO RIGHT IJ, ARTLINE TO RUE. NG TUBE RIGHT NARES WITH GREEN OUTPUT IN LINE TO LOW INTERMITTENT SUCTION, SCD ON, F/C DRAINING CLEAR YELLOW URINE.
--- NOTE | 2019-10-06 10:05 | NUR ---
PATIENT SEDATED ON VENT SEE RT NOTE. 23CM AT GUM FOR ET TUBE,, NO S/S OF PAIN, V/S WNL, CSM INTACT, WV TO ABDOMEN DRESSING CDI AT 125 CONTINOUS SUCTION WITH NO LEAKS DETECTED WITH CAMILLE DRAIN INFERIOR TO THE WV WITH MINIMAL OUTPUT AT THIS TIME, SCD ON, 22G PIVX2 LUE, 18G LEFT IJ, CENTAL LINE TRIPLE LUMEN TO RIGHT IJ, ARTLINE TO RUE. NG TUBE RIGHT NARES WITH GREEN OUTPUT IN LINE TO LOW INTERMITTENT SUCTION, SCD ON, F/C DRAINING CLEAR YELLOW URINE. . PATIENT TAKEN TO 2007 WITH ALL BELONGINGS AND HOOKED UP TO MONITORS IN ROOM AND REPORT GIVEN TO ALEXEI SANCHEZ WHO HAS TAKEN OVER PATIENT CARE.
[2019-10-06 10:21] LABS: ABG BASE EXCESS 5.2 mmol/L (-2.0-3.0); ABG HCO3 31.1 mmol/L (22.0-26.0); ABG OXYGEN SATURATION 97.7 % (95-98); ABG PCO2 (T) 48.5 mmHg (35.0-45.0); ABG PH (T) 7.418 (7.350-7.450); ABG PO2 (T) 94.8 mmHg (83-108); FCOHb 1.1 % (0.5-1.5); FMetHb 0.1 % (0.3-1.12); FO2Hb 96.5 % (94-100); MINUTE VOLUME 9 L/min; PATIENT TEMPERATURE 35.4; PEEP 5 cm H2O; RESPIRATORY RATE 16 b/min; RESPIRATORY RATE (OBSERVED) 16 b/min; TIDAL VOLUME 500 mL; TOTAL HEMOGLOBIN 11.1 G/dl (12.0-16.0)
--- NOTE | 2019-10-06 11:45 | NUR ---
Initial: Pt intubated s/p ex lap for perforated viscus repair w/ PNA present per MD. Pt hx LE lymphedema w/ +4 edema prior admit and LE edema this admit as well. Physical assessment w/ bed scale wt pending at this time per RN. Pt currently has no wt method documented. Will monitor for EN needs if prolonged intubation. Will continue to monitor for scaled wt in order to determine accurate EN recs given morbid obesity. Rec: 1. EN if prolonged intubation; scaled wt for accurate EN recs w/ morbid obesity 2. routine bowel care 3. wt per rx 4. upon extubation, advance diet per MD to heart healthy Addendum: 10/06/19 at [address] Amended: Links added.
[2019-10-06] MEDS: pantoprazole 40MG/NS 100ML BAG 100 ML IV SCH ×3 (12:00→21:14)
[2019-10-06] MEDS: metroNIDAZOLE-Flagyl 500mg/NS 100 ML IV SCH ×2 (12:01→17:35)
[2019-10-06 12:28] LABS: ALANINE AMINOTRANSFERASE 12 U/L (12-78); ALBUMIN 1.6 G/DL (3.4-5.0); ALBUMIN/GLOBULIN RATIO 0.3 (1.1-1.5); ALKALINE PHOSPHATASE 153 IU/L (46-116); ANION GAP 6 (8-16); BILIRUBIN,TOTAL 0.8 MG/DL (0.1-1.0); BLOOD UREA NITROGEN 36 MG/DL (7-18); BUN/CREATININE RATIO 25.2 (6.6-38.0); CALCIUM 7.8 MG/DL (8.5-10.1); CHLORIDE 106 MMOL/L (99-107); CREATININE 1.43 MG/DL (0.40-0.90); GLUCOSE 100 MG/DL (70-104); MAGNESIUM 1.7 MG/DL (1.5-2.4); SODIUM 144 MMOL/L (135-145); TOTAL CARBON DIOXIDE 31.8 MMOL/L (24-32); eGFR 38 ML/MIN
[2019-10-06 12:34] LABS: ASPARTATE AMINO TRANSFERASE 37 U/L (10-37); PHOSPHORUS 3.5 MG/DL (2.3-4.5); POTASSIUM 4.5 MMOL/L (3.5-5.1)
[2019-10-06] MEDS: lactose-reduced food (Ensure High Protein) 237ml bottle PO SCH (18:00)
[2019-10-06] MEDS: piperacillin/tazo 4.5gm/100ml 100 ML IV SCH (19:44)
[2019-10-06] MEDS: apixaban 5mg tablet PO SCH (20:00)
[2019-10-06] MEDS: lactobacillus rhamnosus 10,000 MMU CELLS/CAPSULE PO SCH (20:00)
[2019-10-06] MEDS: FENTANYL-0.9 % NACL/PF 100 ML IV PRN (21:36)
[2019-10-07] VITALS (25 sets, daily range): BP systolic 90–117; BP diastolic 43–61
[2019-10-07] MEDS: piperacillin/tazo 4.5gm/100ml 100 ML IV SCH ×3 (00:04→15:49)
[2019-10-07] MEDS: metroNIDAZOLE-Flagyl 500mg/NS 100 ML IV SCH ×3 (00:55→15:49)
[2019-10-07] MEDS: pantoprazole 40MG/NS 100ML BAG 100 ML IV SCH ×5 (00:58→20:01)
[2019-10-07 01:32] LABS: BASOPHILS % (AUTO) 0.3 % (0-1); EOSINOPHILS # (AUTO) 0.1 X10'3 (0-0.9); EOSINOPHILS % (AUTO) 0.4 % (0-6); HEMATOCRIT 27.2 % (35.0-45.0); HEMOGLOBIN 8.6 g/dl (12.0-16.0); LYMPHOCYTES # (AUTO) 0.9 X10'3 (1.1-4.8); LYMPHOCYTES % (AUTO) 6.1 % (21-51); MEAN CORPUSCULAR HGB CONC 31.6 g/dL (33.0-36.5); MEAN CORPUSCULAR VOLUME 76.1 FL (78-98); MEAN PLATELET VOLUME 8.3 FL (7.4-10.4); MONOCYTES # (AUTO) 0.7 X10'3 (0-0.9); NEUTROPHILS # (AUTO) 13.4 X10'3 (1.8-7.7); NEUTROPHILS % (AUTO) 88.2 % (42-75); PLATELET COUNT 330 X10'3 (140-440); RED BLOOD COUNT 3.57 X10'6 (4.20-5.60); RED CELL DISTRIBUTION WIDTH 20.2 % (11.5-14.5); WHITE BLOOD COUNT 15.1 X10'3 (4.5-11.0)
[2019-10-07 01:51] LABS: ALANINE AMINOTRANSFERASE 7 U/L (12-78); ALBUMIN 1.2 G/DL (3.4-5.0); ALBUMIN/GLOBULIN RATIO 0.3 (1.1-1.5); ALKALINE PHOSPHATASE 116 IU/L (46-116); ANION GAP 6 (8-16); ASPARTATE AMINO TRANSFERASE 22 U/L (10-37); BILIRUBIN,TOTAL 0.6 MG/DL (0.1-1.0); BLOOD UREA NITROGEN 38 MG/DL (7-18); BUN/CREATININE RATIO 25.7 (6.6-38.0); CALCIUM 7.5 MG/DL (8.5-10.1); CHLORIDE 108 MMOL/L (99-107); CREATININE 1.48 MG/DL (0.40-0.90); GLUCOSE 93 MG/DL (70-104); MAGNESIUM 1.6 MG/DL (1.5-2.4); PHOSPHORUS 3.5 MG/DL (2.3-4.5); SODIUM 145 MMOL/L (135-145); TOTAL CARBON DIOXIDE 30.6 MMOL/L (24-32); TOTAL PROTEIN 5.8 G/DL (6.4-8.2); eGFR 36 ML/MIN
[2019-10-07] MEDS ORDERED: normal saline 500ml IV soln 500 ML IV ONE (02:05)
[2019-10-07 04:25] LABS: ABG BASE EXCESS 4.8 mmol/L (-2.0-3.0); ABG HCO3 29.6 mmol/L (22.0-26.0); ABG OXYGEN SATURATION 93.3 % (95-98); ABG PCO2 (T) 44.6 mmHg (35.0-45.0); ABG PH (T) 7.439 (7.350-7.450); ABG PO2 (T) 68.4 mmHg (83-108); FCOHb 0.4 % (0.5-1.5); FMetHb 0.3 % (0.3-1.12); FO2Hb 92.6 % (94-100); PATIENT TEMPERATURE 36.8; PEEP 5 cm H2O; RESPIRATORY RATE 16 b/min; RESPIRATORY RATE (OBSERVED) 16 b/min; TIDAL VOLUME 500 mL; TOTAL HEMOGLOBIN 9.9 G/dl (12.0-16.0)
[2019-10-07] MEDS: midazolam 100mg in NS 100ml 100 ML IV PRN (05:09)
[2019-10-07 07:59] LABS: ANISOCYTOSIS 3+; HYPOCHROMASIA 1+; MICROCYTOSIS 1+; PLATELET ESTIMATE NORMAL; POLYCHROMASIA FEW; TARGET CELLS FEW
[2019-10-07] MEDS: K, MAG and/or Phos replacement - Verify level? MC SCH (08:00)
[2019-10-07] MEDS: lactose-reduced food (Ensure High Protein) 237ml bottle PO SCH ×3 (08:00→15:49)
[2019-10-07] MEDS: apixaban 5mg tablet PO SCH ×2 (08:00→20:00)
[2019-10-07] MEDS: lactobacillus rhamnosus 10,000 MMU CELLS/CAPSULE PO SCH ×2 (08:00→20:01)
[2019-10-07] MEDS: FENTANYL-0.9 % NACL/PF 100 ML IV PRN ×2 (12:41→22:40)
[2019-10-07] MEDS: normal saline 1000ml 1,000 ML IV SCH (13:07)
--- NOTE | 2019-10-07 13:49 | NUR ---
Follow up: Noted that patient has Ensure Enlive as a home medication, not currently getting in view of NPO and intubated/sedated. She is s/p exploratory lap with repair of gastric perforation. Not receiving tube feeding today. Will follow. Rec: 1. EN if prolonged intubation; If TF recommend Vital High Protein at 70 ml/hr 2. bowel care as needed 3. wt per rx 4. when extubated, advance diet as medically indicated to regular Addendum: 10/07/19 at [address] Amended: Links added.
[2019-10-07] MEDS ORDERED: mineral oil/petrolatum ophthal oint EACHEYE SCH (14:00)
--- NOTE | 2019-10-07 14:23 | NUR ---
PRESSURE ULCER EDUCATION: DEFINITION: A pressure ulcer is an area of skin that breaks down when you stay in one position too long. The constant pressure against the skin reduces the blood flow to that area and the affected tissue dies. CAUSES: "Being bedridden or in a wheelchair "Fragile skin "Having a chronic condition, such as diabetes or vascular disease "Inability to move certain parts of your body without assistance "Older age "Incontinence of urine or stool SYMPTOMS: "A reddened area that DOES NOT turn white when pressed on - this can be the beginning of a pressure ulcer "A blister, deep sore or a crater - these can be advanced pressure ulcers FIRST AID: "Relieve the pressure on this area "Keep the area clean and dry "Call your primary doctor if you see any of the above symptoms "DO NOT massage the area "DO NOT use a donut shaped or ring shaped pillow- these actually interfere with the blood flow and cause complications PREVENTION: "Check for pressure ulcers everyday "Change position at least every two hours to relieve pressure "Use items that help relieve pressure- pillows, sheepskin, foam padding, and powders. "Keep skin clean and dry "Eat healthy well balanced meals "Exercise daily IF YOU SEE ANY OF THESE SYMPTOMS WHILE IN THE HOSPITAL - TELL YOUR NURSE IMMEDIATELY. IF YOU SEE ANY OF THESE SYMPTOMS WHILE AT HOME OR HAVE ANY QUESTIONS OR CONCERNS ABOUT PRESSURE ULCERS - CALL YOUR PRIMARY DOCTOR IMMEDIATELY. Addendum: 10/07/19 at 1423 by Jessica Ramos RN Amended: Links added.
[2019-10-07] MEDS: mineral oil/petrolatum ophthal oint EACHEYE SCH (15:49)
[2019-10-07] MEDS ORDERED: VANCOMYCIN LEVEL IV ONE (19:30)
[2019-10-07] MEDS: mineral oil/petrolatum, white cream 113gm jar TP SCH (20:00)
[2019-10-07] MEDS ORDERED: dextrose 50%-water 50ml dispensing syringe IV ONE (20:09)
[2019-10-07] MEDS: dextrose 5%-1/2 normal saline 1,000 ML IV SCH (22:39)
[2019-10-07] MEDS ORDERED: albumin (Human) 5% 250ml 250 ML IV ONE (23:50)
[2019-10-08] VITALS (24 sets, daily range): BP systolic 102–158; BP diastolic 39–75
[2019-10-08] MEDS: metroNIDAZOLE-Flagyl 500mg/NS 100 ML IV SCH ×3 (00:50→16:25)
[2019-10-08] MEDS: nystatin 15 GM powder TP SCH ×3 (01:20→21:11)
[2019-10-08] MEDS: mineral oil/petrolatum ophthal oint EACHEYE SCH ×5 (01:20→21:11)
[2019-10-08] MEDS: piperacillin/tazo 4.5gm/100ml 100 ML IV SCH ×3 (01:22→16:25)
[2019-10-08] MEDS: pantoprazole 40MG/NS 100ML BAG 100 ML IV SCH ×2 (01:39→07:23)
[2019-10-08 03:15] LABS: ABG HCO3 28.8 mmol/L (22.0-26.0); ABG OXYGEN SATURATION 95.8 % (95-98); ABG PH (T) 7.495 (7.350-7.450); ABG PO2 (T) 78.1 mmHg (83-108); FCOHb 0.3 % (0.5-1.5); FMetHb 0.1 % (0.3-1.12); FO2Hb 95.4 % (94-100); MINUTE VOLUME 8 L/min; PATIENT TEMPERATURE 36.3; PEEP 5 cm H2O; RESPIRATORY RATE 16 b/min; RESPIRATORY RATE (OBSERVED) 16 b/min; TIDAL VOLUME 500 mL; TOTAL HEMOGLOBIN 8.9 G/dl (12.0-16.0)
[2019-10-08] MEDS: midazolam 100mg in NS 100ml 100 ML IV PRN (04:34)
[2019-10-08 04:40] LABS: BASOPHILS % (AUTO) 0.3 % (0-1); EOSINOPHILS # (AUTO) 0.2 X10'3 (0-0.9); EOSINOPHILS % (AUTO) 1.1 % (0-6); HEMATOCRIT 27.8 % (35.0-45.0); HEMOGLOBIN 8.5 g/dl (12.0-16.0); LYMPHOCYTES # (AUTO) 1.1 X10'3 (1.1-4.8); LYMPHOCYTES % (AUTO) 7.3 % (21-51); MEAN CORPUSCULAR HEMOGLOBIN 23.4 PG (27.0-31.0); MEAN CORPUSCULAR HGB CONC 30.6 g/dL (33.0-36.5); MEAN CORPUSCULAR VOLUME 76.4 FL (78-98); MEAN PLATELET VOLUME 8.8 FL (7.4-10.4); MONOCYTES # (AUTO) 0.6 X10'3 (0-0.9); MONOCYTES % (AUTO) 4.2 % (2-12); NEUTROPHILS # (AUTO) 12.8 X10'3 (1.8-7.7); NEUTROPHILS % (AUTO) 87.1 % (42-75); PLATELET COUNT 360 X10'3 (140-440); RED BLOOD COUNT 3.65 X10'6 (4.20-5.60); RED CELL DISTRIBUTION WIDTH 20.7 % (11.5-14.5); WHITE BLOOD COUNT 14.7 X10'3 (4.5-11.0)
[2019-10-08 04:55] LABS: ALANINE AMINOTRANSFERASE 9 U/L (12-78); ALBUMIN 1.5 G/DL (3.4-5.0); ALBUMIN/GLOBULIN RATIO 0.3 (1.1-1.5); ALKALINE PHOSPHATASE 112 IU/L (46-116); ANION GAP 9 (8-16); ASPARTATE AMINO TRANSFERASE 16 U/L (10-37); BILIRUBIN,TOTAL 0.6 MG/DL (0.1-1.0); BLOOD UREA NITROGEN 40 MG/DL (7-18); BUN/CREATININE RATIO 23.5 (6.6-38.0); CALCIUM 7.9 MG/DL (8.5-10.1); CHLORIDE 107 MMOL/L (99-107); GLUCOSE 98 MG/DL (70-104); MAGNESIUM 1.7 MG/DL (1.5-2.4); PHOSPHORUS 3.6 MG/DL (2.3-4.5); POTASSIUM 3.3 MMOL/L (3.5-5.1); SODIUM 145 MMOL/L (135-145); TOTAL CARBON DIOXIDE 29.4 MMOL/L (24-32); TOTAL PROTEIN 6.5 G/DL (6.4-8.2); eGFR 31 ML/MIN
--- NOTE | 2019-10-08 06:30 | NUR ---
Received report from off going RN. HR noted to 30s and irregular, no p waves noted on telemetry. Appears to be junctional. Per report pt has been in this rhythm for several days and MD is aware. BP stable at 110s/50s. Pt is arousable and able to follow commands. Will continue to monitor closely.
[2019-10-08] MEDS: mineral oil/petrolatum, white cream 113gm jar TP SCH ×2 (07:24→21:11)
[2019-10-08] MEDS: lactobacillus rhamnosus 10,000 MMU CELLS/CAPSULE PO SCH ×2 (07:24→21:11)
[2019-10-08] MEDS: potassium CL 10mEq/100ml bag 100 ML IV PRN ×4 (07:44→11:06)
[2019-10-08] MEDS: K, MAG and/or Phos replacement - Verify level? MC SCH (07:48)
[2019-10-08] MEDS: apixaban 5mg tablet PO SCH ×2 (08:00→20:00)
[2019-10-08] MEDS: lactose-reduced food (Ensure High Protein) 237ml bottle PO SCH ×3 (08:00→18:00)
[2019-10-08] MEDS: pantoprazole 40 MG vial IV SCH (09:55)
--- NOTE | 2019-10-08 11:15 | NUR ---
MD Guerra brought to bedside for bradycardia. EKG ordered. BPs stable 110s/40s. Will continue to monitor.
[2019-10-08] MEDS ORDERED: DOPamine 400mg/D5W 250ml 250 ML IV ONE (11:35)
[2019-10-08] MEDS ORDERED: DOPamine 400mg/D5W 250ml 250 ML IV PRN (11:35)
--- NOTE | 2019-10-08 12:00 | NUR ---
MD Guerra ordered Dopamine 5mcg/kg/min for HR in the 30s. BPs still 110s/50s. Dopamine gtt started with good BP response to 160s/90s. But minimal HR response. HR increased to upper 40s, appears more regular as a accerlated junctional with frequent PVCs. Will continue to monitor.
[2019-10-08] MEDS: dextrose 5%-1/2 normal saline 1,000 ML IV SCH (12:05)
--- NOTE | 2019-10-08 12:51 | NUR ---
Pt with rates in the 60-80s. Appears ventricular with signficant ectopy. MD aware. BP 160/70s. Pt with better UOP 150 this hour. Will continue to monitor.
--- NOTE | 2019-10-08 13:49 | NUR ---
Ami held per MD rosenthal.
--- NOTE | 2019-10-08 14:58 | NUR ---
Dopamine lowered to 2.5 per Najma for increased ectopy and HTN in the 160s/90s. Also no TF started per MD. Pt to remain NPO. No residuals noted. Will continue to monitor.
--- NOTE | 2019-10-08 16:04 | NUR ---
MD Andrade notified and made aware of 340cc of serous output from CAMILLE drain during this shift. Will continue to monitor.
[2019-10-08] MEDS: FENTANYL-0.9 % NACL/PF 100 ML IV PRN (16:25)
[2019-10-09] VITALS (23 sets, daily range): BP systolic 109–147; BP diastolic 53–73
[2019-10-09] MEDS: metroNIDAZOLE-Flagyl 500mg/NS 100 ML IV SCH ×3 (00:35→16:28)
[2019-10-09] MEDS: piperacillin/tazo 4.5gm/100ml 100 ML IV SCH ×3 (00:36→17:36)
[2019-10-09] MEDS: dextrose 5%-1/2 normal saline 1,000 ML IV SCH ×2 (00:36→13:05)
[2019-10-09] MEDS: DOPamine 400mg/D5W 250ml 250 ML IV PRN ×2 (01:34→17:12)
[2019-10-09] MEDS: mineral oil/petrolatum ophthal oint EACHEYE SCH ×5 (01:35→20:04)
[2019-10-09 03:00] LABS: BASOPHILS # (AUTO) 0.1 X10'3 (0-0.2); BASOPHILS % (AUTO) 0.4 % (0-1); EOSINOPHILS # (AUTO) 0.4 X10'3 (0-0.9); EOSINOPHILS % (AUTO) 2.1 % (0-6); HEMATOCRIT 31.2 % (35.0-45.0); HEMOGLOBIN 9.6 g/dl (12.0-16.0); LYMPHOCYTES # (AUTO) 1.3 X10'3 (1.1-4.8); LYMPHOCYTES % (AUTO) 7.7 % (21-51); MEAN CORPUSCULAR HEMOGLOBIN 23.2 PG (27.0-31.0); MEAN CORPUSCULAR HGB CONC 30.7 g/dL (33.0-36.5); MEAN CORPUSCULAR VOLUME 75.6 FL (78-98); MEAN PLATELET VOLUME 8.4 FL (7.4-10.4); MONOCYTES # (AUTO) 0.7 X10'3 (0-0.9); MONOCYTES % (AUTO) 4.4 % (2-12); NEUTROPHILS # (AUTO) 14.6 X10'3 (1.8-7.7); NEUTROPHILS % (AUTO) 85.4 % (42-75); PLATELET COUNT 456 X10'3 (140-440); RED BLOOD COUNT 4.13 X10'6 (4.20-5.60); RED CELL DISTRIBUTION WIDTH 21.4 % (11.5-14.5); WHITE BLOOD COUNT 17.1 X10'3 (4.5-11.0)
[2019-10-09 03:07] LABS: ALANINE AMINOTRANSFERASE 11 U/L (12-78); ALBUMIN 1.6 G/DL (3.4-5.0); ALBUMIN/GLOBULIN RATIO 0.3 (1.1-1.5); ALKALINE PHOSPHATASE 117 IU/L (46-116); ANION GAP 10 (8-16); ASPARTATE AMINO TRANSFERASE 13 U/L (10-37); BILIRUBIN,TOTAL 0.6 MG/DL (0.1-1.0); BLOOD UREA NITROGEN 36 MG/DL (7-18); BUN/CREATININE RATIO 21.8 (6.6-38.0); CHLORIDE 107 MMOL/L (99-107); CREATININE 1.65 MG/DL (0.40-0.90); GLUCOSE 119 MG/DL (70-104); MAGNESIUM 1.7 MG/DL (1.5-2.4); POTASSIUM 3.3 MMOL/L (3.5-5.1); SODIUM 146 MMOL/L (135-145); TOTAL CARBON DIOXIDE 28.9 MMOL/L (24-32); TOTAL PROTEIN 7.1 G/DL (6.4-8.2); eGFR 32 ML/MIN
[2019-10-09 03:30] LABS: ABG BASE EXCESS 1.6 mmol/L (-2.0-3.0); ABG HCO3 25.3 mmol/L (22.0-26.0); ABG OXYGEN SATURATION 96.3 % (95-98); ABG PCO2 (T) 35.6 mmHg (35.0-45.0); ABG PH (T) 7.468 (7.350-7.450); ABG PO2 (T) 80.9 mmHg (83-108); FCOHb 0.3 % (0.5-1.5); FMetHb 0.3 % (0.3-1.12); FO2Hb 95.7 % (94-100); MINUTE VOLUME 8 L/min; PATIENT TEMPERATURE 36.6; PEEP 5 cm H2O; RESPIRATORY RATE 16 b/min; RESPIRATORY RATE (OBSERVED) 16 b/min; TIDAL VOLUME 500 mL; TOTAL HEMOGLOBIN 10.3 G/dl (12.0-16.0)
[2019-10-09] MEDS: potassium CL 10mEq/100ml bag 100 ML IV PRN ×4 (04:42→08:27)
[2019-10-09] MEDS: lactobacillus rhamnosus 10,000 MMU CELLS/CAPSULE PO SCH ×2 (07:15→20:04)
[2019-10-09] MEDS: pantoprazole 40 MG vial IV SCH (07:15)
[2019-10-09] MEDS: nystatin 15 GM powder TP SCH ×2 (07:16→20:04)
[2019-10-09] MEDS: mineral oil/petrolatum, white cream 113gm jar TP SCH ×2 (07:16→20:04)
[2019-10-09] MEDS: K, MAG and/or Phos replacement - Verify level? MC SCH (07:17)
[2019-10-09] MEDS: lactose-reduced food (Ensure High Protein) 237ml bottle PO SCH ×3 (08:00→18:00)
--- NOTE | 2019-10-09 11:13 | NUR ---
Per MD gray to restart eloquis today, resedate pt, and continue dopamine infusion at 3.5.
[2019-10-09] MEDS: apixaban 5mg tablet PO SCH ×2 (12:15→20:04)
--- NOTE | 2019-10-09 12:19 | NUR ---
TF Consult: Pt s/p ex lap w/ perforated gastric ulcer. MAP 87 w/ EN to start today per MD. No BM yet this admit. TF recs below given pt intubation needs. Will monitor for EN tolerance. Rec: 1. NGTF per MD using Vital High Protein at 80ml/hr; to provide 1920ml fluid, 1920kcals, 1613ml free water, and 168g protein. Initiate at 20ml/hr and advance 20ml Q8 to goal as tolerated. 2. water flush 200ml Q4 3. PALB Q /; daily wts 5. wt per rx 6. when extubated, advance diet as medically indicated to regular Addendum: 10/09/19 at [address] Amended: Links added.
[2019-10-09] MEDS: FENTANYL-0.9 % NACL/PF 100 ML IV PRN (13:18)
[2019-10-09] MEDS: midazolam 100mg in NS 100ml 100 ML IV PRN (16:45)
--- NOTE | 2019-10-09 18:30 | NUR ---
Patient in room CICU 2009. I have received report from Fransisco SANCHEZ and had the opportunity to ask questions and assume patient care. Pt received orally intubated on IV sedation. ETT secured with anchorfast. Current vent settings SIMV Rate 16 40% FIO2 +5 PEEP PS10. Oxygen saturation is 100%. Rhythm is junctional HR 38. Dopamine infusing 3.5 mcg/kg/min. Right IJ triple lumen central line is transduced to CVP. IV sedation with fentanyl @ 75mcg/min & versed at 2mg/hr. Moderate sedation noted. OGT is taped securely to ETT. Enteric feeding with Vital HP rate is 20ml/hr. Indwelling simon cath is patent to gravity drainage, urine is dark yellow with rust sediment along tubing. No distress at shift change.
[2019-10-10] VITALS (24 sets, daily range): BP systolic 97–139; BP diastolic 39–73
[2019-10-10] MEDS: metroNIDAZOLE-Flagyl 500mg/NS 100 ML IV SCH ×2 (00:24→08:42)
[2019-10-10] MEDS: piperacillin/tazo 4.5gm/100ml 100 ML IV SCH ×3 (01:50→17:23)
[2019-10-10] MEDS: mineral oil/petrolatum ophthal oint EACHEYE SCH ×4 (02:00→20:00)
[2019-10-10 02:59] LABS: BASOPHILS # (AUTO) 0.1 X10'3 (0-0.2); BASOPHILS % (AUTO) 0.8 % (0-1); EOSINOPHILS # (AUTO) 0.4 X10'3 (0-0.9); EOSINOPHILS % (AUTO) 3.5 % (0-6); HEMATOCRIT 30.8 % (35.0-45.0); HEMOGLOBIN 9.8 g/dl (12.0-16.0); LYMPHOCYTES # (AUTO) 1.3 X10'3 (1.1-4.8); LYMPHOCYTES % (AUTO) 10.1 % (21-51); MEAN CORPUSCULAR HEMOGLOBIN 23.8 PG (27.0-31.0); MEAN CORPUSCULAR HGB CONC 31.7 g/dL (33.0-36.5); MEAN CORPUSCULAR VOLUME 75.2 FL (78-98); MEAN PLATELET VOLUME 8.4 FL (7.4-10.4); MONOCYTES # (AUTO) 0.8 X10'3 (0-0.9); MONOCYTES % (AUTO) 6.2 % (2-12); NEUTROPHILS # (AUTO) 10.1 X10'3 (1.8-7.7); NEUTROPHILS % (AUTO) 79.4 % (42-75); PLATELET COUNT 424 X10'3 (140-440); RED BLOOD COUNT 4.09 X10'6 (4.20-5.60); RED CELL DISTRIBUTION WIDTH 21.2 % (11.5-14.5); WHITE BLOOD COUNT 12.7 X10'3 (4.5-11.0)
[2019-10-10] MEDS: FENTANYL-0.9 % NACL/PF 100 ML IV PRN ×2 (03:00→08:45)
[2019-10-10 03:02] LABS: ALANINE AMINOTRANSFERASE 9 U/L (12-78); ALBUMIN 1.5 G/DL (3.4-5.0); ALBUMIN/GLOBULIN RATIO 0.3 (1.1-1.5); ALKALINE PHOSPHATASE 109 IU/L (46-116); ANION GAP 7 (8-16); ASPARTATE AMINO TRANSFERASE 15 U/L (10-37); BILIRUBIN,TOTAL 0.6 MG/DL (0.1-1.0); BLOOD UREA NITROGEN 29 MG/DL (7-18); BUN/CREATININE RATIO 19.6 (6.6-38.0); CALCIUM 7.7 MG/DL (8.5-10.1); CHLORIDE 111 MMOL/L (99-107); CREATININE 1.48 MG/DL (0.40-0.90); GLUCOSE 122 MG/DL (70-104); MAGNESIUM 1.7 MG/DL (1.5-2.4); PHOSPHORUS 2.4 MG/DL (2.3-4.5); POTASSIUM 3.2 MMOL/L (3.5-5.1); PREALBUMIN 10.3 MG/DL (19-36); SODIUM 147 MMOL/L (135-145); TOTAL CARBON DIOXIDE 29.1 MMOL/L (24-32); TOTAL PROTEIN 6.7 G/DL (6.4-8.2); eGFR 36 ML/MIN
[2019-10-10 03:15] LABS: ABG HCO3 25.8 mmol/L (22.0-26.0); ABG OXYGEN SATURATION 95.7 % (95-98); ABG PCO2 (T) 37.5 mmHg (35.0-45.0); ABG PH (T) 7.456 (7.350-7.450); ABG PO2 (T) 84.2 mmHg (83-108); FCOHb 0.3 % (0.5-1.5); FO2Hb 95.4 % (94-100); MINUTE VOLUME 8 L/min; PEEP 5 cm H2O; RESPIRATORY RATE 16 b/min; RESPIRATORY RATE (OBSERVED) 16 b/min; TIDAL VOLUME 500 mL; TOTAL HEMOGLOBIN 10.5 G/dl (12.0-16.0)
[2019-10-10] MEDS: potassium CL 10mEq/100ml bag 100 ML IV PRN ×3 (04:01→06:54)
[2019-10-10] MEDS: dextrose 5%-1/2 normal saline 1,000 ML IV SCH ×2 (04:22→15:45)
--- NOTE | 2019-10-10 06:33 | NUR ---
Patient in room CICU 2009. I have received report from Geetha SANCHEZ and had the opportunity to ask questions and assume patient care with Janice Ryder RN.
[2019-10-10] MEDS: K, MAG and/or Phos replacement - Verify level? MC SCH (08:00)
[2019-10-10] MEDS: lactose-reduced food (Ensure High Protein) 237ml bottle PO SCH (08:00)
[2019-10-10] MEDS: nystatin 15 GM powder TP SCH ×2 (08:13→20:00)
[2019-10-10] MEDS: apixaban 5mg tablet PO SCH (08:13)
[2019-10-10] MEDS: mineral oil/petrolatum, white cream 113gm jar TP SCH ×2 (08:13→20:00)
[2019-10-10] MEDS: lactobacillus rhamnosus 10,000 MMU CELLS/CAPSULE PO SCH ×2 (08:13→18:43)
[2019-10-10] MEDS: pantoprazole 40 MG vial IV SCH ×3 (08:13→19:05)
[2019-10-10] MEDS: DOPamine 400mg/D5W 250ml 250 ML IV PRN ×2 (08:17→19:06)
--- NOTE | 2019-10-10 08:51 | NUR ---
WOC RN here to change vac dressing.
--- NOTE | 2019-10-10 10:44 | NUR ---
ROUNDS NOTE: Dr. Coppola stated pt. can be extubated. Will enter orders.
--- NOTE | 2019-10-10 10:54 | NUR ---
Skin tear to left knee occurred when turning pt. Dressing applied to left knee area. WOC RN notified.
[2019-10-10] MEDS ORDERED: acetaminophen 325mg/10.15ml oral unit dose solution OGT PRN ×2 (11:12→11:13)
[2019-10-10] MEDS ORDERED: lactose-reduced food (Ensure High Protein) 237ml bottle OGT SCH (11:13)
[2019-10-10] MEDS ORDERED: racepinephrine 11.25mg/0.5ml nebule NEB PRN (11:45)
[2019-10-10] MEDS ORDERED: ipratropium/albuterol 3ml nebule NEB PRN (11:45)
[2019-10-10] MEDS ORDERED: naloxone 0.4 mg/ml inj IV PRN (11:45)
[2019-10-10] MEDS: HYDROmorphone/NS 1 mg/ml CADD 50 ML IV SCH ×6 (12:23→23:00)
[2019-10-10] MEDS ORDERED: dexmedetomidin/NS 400mcg/100ml 100 ML IV SCH (13:10)
[2019-10-10] MEDS: ipratropium/albuterol 3ml nebule NEB SCH ×2 (16:54→21:21)
--- NOTE | 2019-10-10 16:58 | NUR ---
Left knee dressing changed twice this shift. Xeroform gauze applied over skin tear, abd. dressing applied over gauze, covered with a towel and dri kiana. 2 NS liter bags over knee to provide pressure to help with clotting.
--- NOTE | 2019-10-10 17:38 | NUR ---
Dr. Bean in to see pt. Notified that pt. will have swallow eval in am to evaluate swallowing ability. Also notified of CAMILLE drain output off approx. 300cc.
--- NOTE | 2019-10-10 18:22 | NUR ---
Problems reprioritized. Patient report given, questions answered & plan of care reviewed with Ivonne SANCHEZ.
--- NOTE | 2019-10-10 18:32 | NUR ---
Patient in room CICU 2009. I have received report from Martha SANCHEZ and had the opportunity to ask questions and assume patient care.
[2019-10-10] MEDS: apixaban 5mg tablet OGT SCH (18:42)
[2019-10-11] VITALS (26 sets, daily range): BP systolic 95–129; BP diastolic 40–93
[2019-10-11] MEDS: piperacillin/tazo 4.5gm/100ml 100 ML IV SCH ×2 (00:51→07:13)
[2019-10-11] MEDS: HYDROmorphone/NS 1 mg/ml CADD 50 ML IV SCH ×12 (01:00→23:00)
[2019-10-11] MEDS: mineral oil/petrolatum ophthal oint EACHEYE SCH ×2 (01:12→07:13)
[2019-10-11] MEDS: ipratropium/albuterol 3ml nebule NEB SCH ×4 (03:14→20:55)
[2019-10-11 03:33] LABS: BASOPHILS # (AUTO) 0.1 X10'3 (0-0.2); BASOPHILS % (AUTO) 0.7 % (0-1); EOSINOPHILS # (AUTO) 0.4 X10'3 (0-0.9); EOSINOPHILS % (AUTO) 2.7 % (0-6); HEMATOCRIT 24.8 % (35.0-45.0); HEMOGLOBIN 7.6 g/dl (12.0-16.0); LYMPHOCYTES # (AUTO) 1.4 X10'3 (1.1-4.8); LYMPHOCYTES % (AUTO) 9.2 % (21-51); MEAN CORPUSCULAR HEMOGLOBIN 23.9 PG (27.0-31.0); MEAN CORPUSCULAR HGB CONC 30.8 g/dL (33.0-36.5); MEAN CORPUSCULAR VOLUME 77.8 FL (78-98); MEAN PLATELET VOLUME 8.7 FL (7.4-10.4); MONOCYTES # (AUTO) 1.1 X10'3 (0-0.9); MONOCYTES % (AUTO) 7.5 % (2-12); NEUTROPHILS # (AUTO) 12.2 X10'3 (1.8-7.7); NEUTROPHILS % (AUTO) 79.9 % (42-75); PLATELET COUNT 386 X10'3 (140-440); RED BLOOD COUNT 3.19 X10'6 (4.20-5.60); RED CELL DISTRIBUTION WIDTH 20.6 % (11.5-14.5); WHITE BLOOD COUNT 15.3 X10'3 (4.5-11.0)
[2019-10-11 03:42] LABS: ALANINE AMINOTRANSFERASE 10 U/L (12-78); ALBUMIN 1.3 G/DL (3.4-5.0); ALBUMIN/GLOBULIN RATIO 0.3 (1.1-1.5); ALKALINE PHOSPHATASE 90 IU/L (46-116); BILIRUBIN,TOTAL 0.6 MG/DL (0.1-1.0); BLOOD UREA NITROGEN 27 MG/DL (7-18); BUN/CREATININE RATIO 19.1 (6.6-38.0); CALCIUM 7.5 MG/DL (8.5-10.1); CREATININE 1.41 MG/DL (0.40-0.90); GLUCOSE 113 MG/DL (70-104); MAGNESIUM 1.7 MG/DL (1.5-2.4); TOTAL CARBON DIOXIDE 30.3 MMOL/L (24-32); eGFR 38 ML/MIN
[2019-10-11 03:55] LABS: ASPARTATE AMINO TRANSFERASE 25 U/L (10-37)
[2019-10-11 04:13] LABS: ANION GAP 13 (8-16); CHLORIDE 108 MMOL/L (99-107); PHOSPHORUS 3.1 MG/DL (2.3-4.5); POTASSIUM 3.9 MMOL/L (3.5-5.1); SODIUM 151 MMOL/L (135-145)
--- NOTE | 2019-10-11 04:58 | NUR ---
Dressing changed on left knee 5 times this shift. FILLING ROOM OPERATOR notified. Pic taken.
[2019-10-11] MEDS: dextrose 5%-1/2 normal saline 1,000 ML IV SCH ×2 (05:05→18:25)
[2019-10-11] MEDS: DOPamine 400mg/D5W 250ml 250 ML IV PRN ×2 (05:17→19:41)
--- NOTE | 2019-10-11 06:57 | NUR ---
Patient in room [facility] 2009. I have received report from vIonne SANCHEZ and had the opportunity to ask questions and assume patient care with Janice Ryder RN. Addendum: 10/11/19 at 0657 by Martha Rey RN Amended: Links added.
[2019-10-11] MEDS: mineral oil/petrolatum, white cream 113gm jar TP SCH ×2 (07:13→19:27)
[2019-10-11] MEDS: nystatin 15 GM powder TP SCH ×2 (07:13→20:00)
[2019-10-11] MEDS: pantoprazole 40 MG vial IV SCH ×2 (07:13→19:25)
[2019-10-11] MEDS: K, MAG and/or Phos replacement - Verify level? MC SCH (07:13)
[2019-10-11] MEDS: apixaban 5mg tablet OGT SCH ×2 (07:24→19:27)
[2019-10-11] MEDS: lactobacillus rhamnosus 10,000 MMU CELLS/CAPSULE PO SCH ×2 (07:24→19:27)
[2019-10-11 08:11] LABS: PLATELET ESTIMATE NORMAL
[2019-10-11 08:12] LABS: ANISOCYTOSIS 3+; HYPOCHROMASIA 1+; MICROCYTOSIS 1+
[2019-10-11 08:56] LABS: ABG BASE EXCESS 0.2 mmol/L (-2.0-3.0); ABG HCO3 26.4 mmol/L (22.0-26.0); ABG OXYGEN SATURATION 95.9 % (95-98); ABG PCO2 (T) 51.6 mmHg (35.0-45.0); ABG PH (T) 7.326 (7.350-7.450); ABG PO2 (T) 81.8 mmHg (83-108); FCOHb 0.9 % (0.5-1.5); FLOW 3 L/min; FMetHb 0.3 % (0.3-1.12); FO2Hb 94.7 % (94-100); RESPIRATORY RATE (OBSERVED) 18 b/min; TOTAL HEMOGLOBIN 7.1 G/dl (12.0-16.0)
--- NOTE | 2019-10-11 08:58 | NUR ---
Pt. somnolent. ABG drawn. CO2 51.6.
[2019-10-11 09:01] LABS: HEMATOCRIT 22.4 % (35.0-45.0); MEAN CORPUSCULAR HEMOGLOBIN 23.1 PG (27.0-31.0); MEAN CORPUSCULAR HGB CONC 30.2 g/dL (33.0-36.5); MEAN CORPUSCULAR VOLUME 76.5 FL (78-98); MEAN PLATELET VOLUME 7.9 FL (7.4-10.4); PLATELET COUNT 349 X10'3 (140-440); RED BLOOD COUNT 2.93 X10'6 (4.20-5.60); RED CELL DISTRIBUTION WIDTH 20.5 % (11.5-14.5); WHITE BLOOD COUNT 15.1 X10'3 (4.5-11.0)
[2019-10-11 09:06] LABS: HEMOGLOBIN 6.8 g/dl (12.0-16.0)
--- NOTE | 2019-10-11 09:14 | NUR ---
Placed on bipap.
--- NOTE | 2019-10-11 09:17 | NUR ---
Bipap placed on standby.
[2019-10-11 09:18] LABS: PARTIAL THROMBOPLASTIN TIME 31 SECONDS (22-32)
--- NOTE | 2019-10-11 09:55 | NUR ---
Dr. Coppola notified of: pt.'s knee bleeding and critical H/H, noncompliance with bipap, somnolence and inability to safely swallow meds peri. Eliquis.
--- NOTE | 2019-10-11 11:31 | NUR ---
Spoke with Michell MONSALVE RN re. pt's left knee skin tear per Dr. Coppola's request.
[2019-10-11] MEDS ORDERED: silver nitrate applicator stick TP ONE (13:20)
--- NOTE | 2019-10-11 14:00 | NUR ---
WOC WIND UP OPERATOR Mckayla here to apply silver nitrate to left knee.
--- NOTE | 2019-10-11 14:04 | NUR ---
Dr. Bean in to see pt.
[2019-10-11] MEDS: piperacillin/tazo 3.375gm/50ml 50 ML IV SCH ×2 (16:03→23:10)
--- NOTE | 2019-10-11 18:15 | NUR ---
Patient in room CICU 2009. I have received report from Martha SANCHEZ and had the opportunity to ask questions and assume patient care.
--- NOTE | 2019-10-11 18:17 | NUR ---
Problems reprioritized. Patient report given, questions answered & plan of care reviewed with Maureen SANCHEZ. Addendum: 10/11/19 at 1817 by Martha Rey RN Amended: Links added.
[2019-10-11 19:29] LABS: HEMATOCRIT 23.9 % (35.0-45.0); HEMOGLOBIN 7.4 g/dl (12.0-16.0); MEAN CORPUSCULAR HEMOGLOBIN 23.8 PG (27.0-31.0); MEAN CORPUSCULAR HGB CONC 31.1 g/dL (33.0-36.5); MEAN CORPUSCULAR VOLUME 76.5 FL (78-98); MEAN PLATELET VOLUME 8.2 FL (7.4-10.4); PLATELET COUNT 362 X10'3 (140-440); RED BLOOD COUNT 3.13 X10'6 (4.20-5.60); WHITE BLOOD COUNT 19.6 X10'3 (4.5-11.0)
[2019-10-12] VITALS (28 sets, daily range): BP systolic 90–123; BP diastolic 38–75
--- NOTE | 2019-10-12 00:03 | NUR ---
Problems reprioritized. Patient report given, questions answered & plan of care reviewed with Martha SANCHEZ.
[2019-10-12] MEDS: HYDROmorphone/NS 1 mg/ml CADD 50 ML IV SCH ×12 (01:00→23:00)
[2019-10-12] MEDS: DOPamine 400mg/D5W 250ml 250 ML IV PRN ×3 (01:20→12:49)
[2019-10-12 03:03] LABS: BASOPHILS # (AUTO) 0.2 X10'3 (0-0.2); BASOPHILS % (AUTO) 1.1 % (0-1); EOSINOPHILS # (AUTO) 0.5 X10'3 (0-0.9); EOSINOPHILS % (AUTO) 2.7 % (0-6); LYMPHOCYTES % (AUTO) 10.2 % (21-51); MEAN CORPUSCULAR HGB CONC 31.3 g/dL (33.0-36.5); MEAN CORPUSCULAR VOLUME 76.7 FL (78-98); MEAN PLATELET VOLUME 8.7 FL (7.4-10.4); MONOCYTES # (AUTO) 1.3 X10'3 (0-0.9); MONOCYTES % (AUTO) 6.9 % (2-12); NEUTROPHILS # (AUTO) 15.2 X10'3 (1.8-7.7); NEUTROPHILS % (AUTO) 79.1 % (42-75); PLATELET COUNT 331 X10'3 (140-440); RED BLOOD COUNT 2.84 X10'6 (4.20-5.60); RED CELL DISTRIBUTION WIDTH 20.8 % (11.5-14.5); WHITE BLOOD COUNT 19.2 X10'3 (4.5-11.0)
[2019-10-12 03:11] LABS: ALANINE AMINOTRANSFERASE 8 U/L (12-78); ALBUMIN 1.2 G/DL (3.4-5.0); ALBUMIN/GLOBULIN RATIO 0.3 (1.1-1.5); ALKALINE PHOSPHATASE 102 IU/L (46-116); ANION GAP 5 (8-16); ASPARTATE AMINO TRANSFERASE 17 U/L (10-37); BILIRUBIN,TOTAL 0.5 MG/DL (0.1-1.0); BLOOD UREA NITROGEN 22 MG/DL (7-18); BUN/CREATININE RATIO 16.9 (6.6-38.0); CALCIUM 7.5 MG/DL (8.5-10.1); CHLORIDE 112 MMOL/L (99-107); GLUCOSE 114 MG/DL (70-104); MAGNESIUM 1.8 MG/DL (1.5-2.4); PHOSPHORUS 3.2 MG/DL (2.3-4.5); SODIUM 146 MMOL/L (135-145); TOTAL CARBON DIOXIDE 29.4 MMOL/L (24-32); TOTAL PROTEIN 5.7 G/DL (6.4-8.2); eGFR 42 ML/MIN
[2019-10-12 03:13] LABS: POTASSIUM 3.7 MMOL/L (3.5-5.1)
[2019-10-12] MEDS: ipratropium/albuterol 3ml nebule NEB SCH ×4 (03:16→20:33)
[2019-10-12 03:23] LABS: HEMATOCRIT 21.8 % (35.0-45.0); HEMOGLOBIN 6.8 g/dl (12.0-16.0)
[2019-10-12 04:58] LABS: ANISOCYTOSIS 2+; HYPOCHROMASIA 1+; MICROCYTOSIS 1+; PLATELET ESTIMATE NORMAL; STOMATOCYTES 1+
[2019-10-12] MEDS: piperacillin/tazo 3.375gm/50ml 50 ML IV SCH ×2 (07:20→15:56)
[2019-10-12] MEDS: dextrose 5%-1/2 normal saline 1,000 ML IV SCH ×2 (07:45→15:05)
[2019-10-12] MEDS: K, MAG and/or Phos replacement - Verify level? MC SCH (08:00)
[2019-10-12] MEDS: apixaban 5mg tablet OGT SCH ×2 (08:00→20:00)
[2019-10-12] MEDS: lactobacillus rhamnosus 10,000 MMU CELLS/CAPSULE PO SCH ×2 (08:00→22:22)
[2019-10-12] MEDS: pantoprazole 40 MG vial IV SCH ×2 (08:01→22:30)
[2019-10-12] MEDS: mineral oil/petrolatum, white cream 113gm jar TP SCH ×2 (08:01→22:22)
[2019-10-12] MEDS: nystatin 15 GM powder TP SCH ×2 (08:01→22:22)
[2019-10-12 09:59] LABS: HEMATOCRIT 25.2 % (35.0-45.0); HEMOGLOBIN 7.9 g/dl (12.0-16.0); MEAN CORPUSCULAR HEMOGLOBIN 24.4 PG (27.0-31.0); MEAN CORPUSCULAR HGB CONC 31.5 g/dL (33.0-36.5); MEAN CORPUSCULAR VOLUME 77.6 FL (78-98); MEAN PLATELET VOLUME 8.4 FL (7.4-10.4); PLATELET COUNT 354 X10'3 (140-440); RED BLOOD COUNT 3.25 X10'6 (4.20-5.60); WHITE BLOOD COUNT 19.4 X10'3 (4.5-11.0)
[2019-10-12 11:32] LABS: % IRON SATURATION 104 % (11-46); IRON 171 UG/DL (49-151); TOTAL IRON BINDING CAPACITY 165 UG/DL (259-388)
--- NOTE | 2019-10-12 15:05 | NUR ---
Reassessment: Patient extubated yesterday. ST performed BSS today, recommends pureed food and nectar thick liquids d/t difficulty chewing/swallowing regular solids. Pending PO intake. She is day 6 status post exploratory laparotomy with Arturo patch repair of perforated gastric ulcer. Will continue to follow. Rec: 1. Continue pureed diet with nectar thick liquid per ST recs 2. monitor need for oral nutrition supplement if suboptimal PO intake, has increased protein needs r/t wound heal 3. Pt would benefit from routine bowel care, no BM in 6 days 4. weight per rx Addendum: 10/12/19 at [address] Amended: Links added.
--- NOTE | 2019-10-12 18:30 | NUR ---
Patient in room CICU 2009. I have received report from Salvatore SANCHEZ and had the opportunity to ask questions and assume patient care.
[2019-10-12 21:54] LABS: HEMATOCRIT 22.6 % (35.0-45.0); HEMOGLOBIN 7.1 g/dl (12.0-16.0); MEAN CORPUSCULAR HEMOGLOBIN 24.8 PG (27.0-31.0); MEAN CORPUSCULAR HGB CONC 31.3 g/dL (33.0-36.5); MEAN CORPUSCULAR VOLUME 79.1 FL (78-98); MEAN PLATELET VOLUME 8.6 FL (7.4-10.4); PLATELET COUNT 336 X10'3 (140-440); RED BLOOD COUNT 2.85 X10'6 (4.20-5.60); RED CELL DISTRIBUTION WIDTH 20.5 % (11.5-14.5); WHITE BLOOD COUNT 19.6 X10'3 (4.5-11.0)
[2019-10-12 22:47] LABS: ANISOCYTOSIS 2+; HYPOCHROMASIA 2+; MICROCYTOSIS 1+; PLATELET ESTIMATE NORMAL
[2019-10-13] VITALS (29 sets, daily range): BP systolic 84–123; BP diastolic 30–109
[2019-10-13] MEDS: piperacillin/tazo 3.375gm/50ml 50 ML IV SCH ×3 (00:45→16:39)
[2019-10-13] MEDS: HYDROmorphone/NS 1 mg/ml CADD 50 ML IV SCH ×12 (01:00→23:00)
[2019-10-13] MEDS: ipratropium/albuterol 3ml nebule NEB SCH ×4 (02:36→20:33)
--- NOTE | 2019-10-13 03:00 | NUR ---
September TIE MAKER was present around 0300. she was made aware of critical H/H of 7.0 and 22. no change in orders at this time. continue to monitor
[2019-10-13 03:24] LABS: BASOPHILS # (AUTO) 0.2 X10'3 (0-0.2); BASOPHILS % (AUTO) 0.8 % (0-1); EOSINOPHILS # (AUTO) 0.8 X10'3 (0-0.9); EOSINOPHILS % (AUTO) 4.4 % (0-6); LYMPHOCYTES % (AUTO) 10.4 % (21-51); MEAN CORPUSCULAR HEMOGLOBIN 24.8 PG (27.0-31.0); MEAN CORPUSCULAR HGB CONC 31.7 g/dL (33.0-36.5); MEAN CORPUSCULAR VOLUME 78.4 FL (78-98); MEAN PLATELET VOLUME 8.7 FL (7.4-10.4); MONOCYTES # (AUTO) 1.4 X10'3 (0-0.9); MONOCYTES % (AUTO) 7.4 % (2-12); NEUTROPHILS # (AUTO) 14.8 X10'3 (1.8-7.7); PLATELET COUNT 368 X10'3 (140-440); RED CELL DISTRIBUTION WIDTH 20.3 % (11.5-14.5); WHITE BLOOD COUNT 19.2 X10'3 (4.5-11.0)
[2019-10-13 03:36] LABS: ALANINE AMINOTRANSFERASE 9 U/L (12-78); ALBUMIN 1.3 G/DL (3.4-5.0); ALBUMIN/GLOBULIN RATIO 0.3 (1.1-1.5); ALKALINE PHOSPHATASE 105 IU/L (46-116); ANION GAP 3 (8-16); ASPARTATE AMINO TRANSFERASE 13 U/L (10-37); BILIRUBIN,TOTAL 0.6 MG/DL (0.1-1.0); BLOOD UREA NITROGEN 21 MG/DL (7-18); BUN/CREATININE RATIO 15.8 (6.6-38.0); CALCIUM 7.7 MG/DL (8.5-10.1); CHLORIDE 113 MMOL/L (99-107); CREATININE 1.33 MG/DL (0.40-0.90); GLUCOSE 110 MG/DL (70-104); MAGNESIUM 1.7 MG/DL (1.5-2.4); PHOSPHORUS 2.7 MG/DL (2.3-4.5); POTASSIUM 3.4 MMOL/L (3.5-5.1); PREALBUMIN 10.6 MG/DL (19-36); SODIUM 147 MMOL/L (135-145); TOTAL CARBON DIOXIDE 31.4 MMOL/L (24-32); TOTAL PROTEIN 5.6 G/DL (6.4-8.2); eGFR 41 ML/MIN
[2019-10-13 04:32] LABS: ANISOCYTOSIS 3+; HYPOCHROMASIA 1+; MICROCYTOSIS 1+; PLATELET ESTIMATE NORMAL; STOMATOCYTES 2+
[2019-10-13] MEDS: DOPamine 400mg/D5W 250ml 250 ML IV PRN ×3 (04:55→19:16)
--- NOTE | 2019-10-13 06:36 | NUR ---
Problems reprioritized. Patient report given, questions answered & plan of care reviewed with Salvatore SANCHEZ.
[2019-10-13] MEDS: apixaban 5mg tablet OGT SCH ×2 (08:00→19:42)
[2019-10-13] MEDS: lactobacillus rhamnosus 10,000 MMU CELLS/CAPSULE PO SCH ×2 (08:00→19:42)
[2019-10-13] MEDS: K, MAG and/or Phos replacement - Verify level? MC SCH (08:00)
[2019-10-13] MEDS: pantoprazole 40 MG vial IV SCH ×2 (08:00→19:42)
[2019-10-13 08:53] LABS: HEMATOCRIT 22.4 % (35.0-45.0); MEAN CORPUSCULAR HEMOGLOBIN 24.3 PG (27.0-31.0); MEAN CORPUSCULAR HGB CONC 31.1 g/dL (33.0-36.5); MEAN CORPUSCULAR VOLUME 78.3 FL (78-98); MEAN PLATELET VOLUME 8.6 FL (7.4-10.4); PLATELET COUNT 386 X10'3 (140-440); RED BLOOD COUNT 2.86 X10'6 (4.20-5.60); RED CELL DISTRIBUTION WIDTH 20.3 % (11.5-14.5); WHITE BLOOD COUNT 19.9 X10'3 (4.5-11.0)
[2019-10-13] MEDS: mineral oil/petrolatum, white cream 113gm jar TP SCH ×2 (09:06→22:20)
[2019-10-13] MEDS: nystatin 15 GM powder TP SCH ×2 (09:06→22:20)
[2019-10-13] MEDS: dextrose 5%-1/2 normal saline 1,000 ML IV SCH ×2 (10:25→16:41)
[2019-10-13] MEDS: potassium CL 10mEq/100ml bag 100 ML IV PRN (11:56)
[2019-10-13] MEDS ORDERED: silver nitrate applicator stick TP ONE (13:25)
[2019-10-13] MEDS ORDERED: LIDOcaine 1% W/epiNEPHrine 1:100,000 20ml vial SQ ONE (13:40)
--- NOTE | 2019-10-13 13:54 | NUR ---
Reassessment: Patient extubated two days ago. No BM since prior to admission, discussed at rounds. MD ordered colace BID and miralax BID. Continues on pureed food and nectar thick liquids d/t difficulty chewing/swallowing regular solids per ST recs. Did not eat breakfast, ate 25-49% yesterday. Appetite may improve with bowel regularity. Recommend Ensure Enlive with meals when she is cleared to drink thin liquids. She is status post exploratory laparotomy with Arturo patch repair of perforated gastric ulcer. Continues treatment for anemia and COPD, improving daily per MD note. Will continue to follow. Rec: 1. Continue pureed diet with nectar thick liquid per ST recs 2. monitor need for oral nutrition supplement if suboptimal PO intake, has increased protein needs r/t wound heal. Consider Ensure Enlive when is cleared by ST for thin liquids 3. No BM since admission, continue routine bowel care 4. weight per rx Addendum: 10/13/19 at [address] Amended: Links added.
--- NOTE | 2019-10-13 15:00 | NUR ---
Dr. Grady came to bedside to assess pt's left knee with [facility] nurse. Dr. Grady states that knee is more so "oozing" rather than actively bleeding d/t the amount of serous drainage from wound. To cover wound with Xeroform gauze, with multiple 4x4 gauzes, ABD pad, and to apply light pressure per Dr. Grady by wrapping leg in Kerlix gauze and MIRIAM wrap bandage. Dr. Grady will assess L knee tomorrow.
[2019-10-13] MEDS ORDERED: lactulose 20gm/30ml cup PO ONE (16:10)
[2019-10-13 16:15] LABS: HEMATOCRIT 28.4 % (35.0-45.0); HEMOGLOBIN 9.2 g/dl (12.0-16.0); MEAN CORPUSCULAR HEMOGLOBIN 25.8 PG (27.0-31.0); MEAN CORPUSCULAR HGB CONC 32.5 g/dL (33.0-36.5); MEAN CORPUSCULAR VOLUME 79.5 FL (78-98); MEAN PLATELET VOLUME 8.3 FL (7.4-10.4); PLATELET COUNT 368 X10'3 (140-440); RED BLOOD COUNT 3.57 X10'6 (4.20-5.60); RED CELL DISTRIBUTION WIDTH 19.1 % (11.5-14.5); WHITE BLOOD COUNT 18.8 X10'3 (4.5-11.0)
[2019-10-13 16:36] LABS: POTASSIUM 3.8 MMOL/L (3.5-5.1); TROPONIN I 0.04 NG/ML (0.0-0.05)
[2019-10-13] MEDS: docusate sod 100mg capsule PO SCH (19:42)
[2019-10-13] MEDS: polyethylene glycol 3350 17gm powd pack PO SCH (22:20)
[2019-10-14] VITALS (23 sets, daily range): BP systolic 99–122; BP diastolic 35–53
[2019-10-14] MEDS: piperacillin/tazo 3.375gm/50ml 50 ML IV SCH ×3 (00:32→16:06)
[2019-10-14] MEDS: HYDROmorphone/NS 1 mg/ml CADD 50 ML IV SCH ×12 (01:00→23:00)
[2019-10-14] MEDS: ipratropium/albuterol 3ml nebule NEB SCH ×4 (02:13→22:05)
[2019-10-14 03:22] LABS: BASOPHILS # (AUTO) 0.1 X10'3 (0-0.2); BASOPHILS % (AUTO) 0.6 % (0-1); EOSINOPHILS # (AUTO) 0.8 X10'3 (0-0.9); EOSINOPHILS % (AUTO) 4.5 % (0-6); HEMATOCRIT 26.8 % (35.0-45.0); HEMOGLOBIN 8.7 g/dl (12.0-16.0); LYMPHOCYTES # (AUTO) 1.9 X10'3 (1.1-4.8); LYMPHOCYTES % (AUTO) 10.9 % (21-51); MEAN CORPUSCULAR HEMOGLOBIN 25.9 PG (27.0-31.0); MEAN CORPUSCULAR HGB CONC 32.5 g/dL (33.0-36.5); MEAN CORPUSCULAR VOLUME 79.7 FL (78-98); MEAN PLATELET VOLUME 8.5 FL (7.4-10.4); MONOCYTES # (AUTO) 1.2 X10'3 (0-0.9); MONOCYTES % (AUTO) 6.8 % (2-12); NEUTROPHILS # (AUTO) 13.7 X10'3 (1.8-7.7); NEUTROPHILS % (AUTO) 77.2 % (42-75); PLATELET COUNT 381 X10'3 (140-440); RED BLOOD COUNT 3.37 X10'6 (4.20-5.60); RED CELL DISTRIBUTION WIDTH 19.1 % (11.5-14.5); WHITE BLOOD COUNT 17.8 X10'3 (4.5-11.0)
[2019-10-14 03:45] LABS: ALANINE AMINOTRANSFERASE 9 U/L (12-78); ALBUMIN 1.3 G/DL (3.4-5.0); ALBUMIN/GLOBULIN RATIO 0.3 (1.1-1.5); ALKALINE PHOSPHATASE 119 IU/L (46-116); ANION GAP 3 (8-16); ASPARTATE AMINO TRANSFERASE 15 U/L (10-37); BILIRUBIN,TOTAL 0.6 MG/DL (0.1-1.0); BLOOD UREA NITROGEN 18 MG/DL (7-18); BUN/CREATININE RATIO 13.4 (6.6-38.0); CALCIUM 7.6 MG/DL (8.5-10.1); CHLORIDE 112 MMOL/L (99-107); CREATININE 1.34 MG/DL (0.40-0.90); GLUCOSE 115 MG/DL (70-104); MAGNESIUM 1.7 MG/DL (1.5-2.4); PHOSPHORUS 2.5 MG/DL (2.3-4.5); POTASSIUM 3.6 MMOL/L (3.5-5.1); SODIUM 146 MMOL/L (135-145); TOTAL PROTEIN 5.8 G/DL (6.4-8.2); eGFR 41 ML/MIN
[2019-10-14] MEDS: DOPamine 400mg/D5W 250ml 250 ML IV PRN (04:22)
--- NOTE | 2019-10-14 06:50 | NUR ---
Problems reprioritized. Patient report given, questions answered & plan of care reviewed with Art RN.
[2019-10-14] MEDS: docusate sod 100mg capsule PO SCH ×2 (08:00→20:00)
[2019-10-14] MEDS: polyethylene glycol 3350 17gm powd pack PO SCH ×2 (08:00→20:00)
[2019-10-14] MEDS: K, MAG and/or Phos replacement - Verify level? MC SCH (08:00)
[2019-10-14 08:08] LABS: PLATELET ESTIMATE NORMAL; TOTAL CELLS COUNTED 100
[2019-10-14 08:09] LABS: ANISOCYTOSIS 2+; HYPOCHROMASIA 1+; MICROCYTOSIS 1+; POIKILOCYTOSIS FEW; POLYCHROMASIA FEW
[2019-10-14] MEDS: lactobacillus rhamnosus 10,000 MMU CELLS/CAPSULE PO SCH ×2 (08:54→20:20)
[2019-10-14] MEDS: apixaban 5mg tablet OGT SCH ×2 (08:54→20:20)
[2019-10-14] MEDS: mineral oil/petrolatum, white cream 113gm jar TP SCH ×2 (08:59→20:20)
[2019-10-14] MEDS: nystatin 15 GM powder TP SCH ×2 (08:59→20:20)
[2019-10-14] MEDS: pantoprazole 40 MG vial IV SCH ×2 (09:01→20:19)
--- NOTE | 2019-10-14 12:20 | NUR ---
Pt care assumed
[2019-10-14] MEDS: dextrose 5%-1/2 normal saline 1,000 ML IV SCH (13:05)
--- NOTE | 2019-10-14 13:44 | NUR ---
CAMILLE drain removed
--- NOTE | 2019-10-14 15:02 | NUR ---
WOUND VAC EDUCATION PROVIDED BY WOUND CARE 1. Patient instructed to call the Wound Center or their Home Health Agency immediately if: * They notice a change in the color or amount of the fluid in the canister. * Their wound looks more red than usual or has a foul smell. * The skin around their wound looks reddened or irritated. * The dressing feels loose or appears to be loose. * They experience any increase or changes in their pain. * The alarm will not turn off. 2. Patient instructed that they should not be disconnected from suction for more than 2 hours at a time. * If they are not able to get the suction back on, they need to remove the dressing and take all of the foam out of the wound. * Then moisten sterile gauze with normal saline and place on/in the wound. * Change the dressing once a day until arrangements have been made to replace the wound vac dressing. 3. Patient instructed to turn the wound vac machine OFF and call 911 or go to the ED immediately if their canister fills rapidly with blood. 4. If any of these occur while in the hospital tell a nurse immediately. Addendum: 10/14/19 at 1503 by Papito Lowery RN Amended: Links added.
--- NOTE | 2019-10-14 18:30 | NUR ---
Patient in room CICU 2009. I have received report from Art RN and had the opportunity to ask questions and assume patient care.
[2019-10-15] VITALS (24 sets, daily range): BP systolic 65–120; BP diastolic 39–55
[2019-10-15] MEDS: HYDROmorphone/NS 1 mg/ml CADD 50 ML IV SCH ×11 (01:00→23:00)
[2019-10-15] MEDS: dextrose 5%-1/2 normal saline 1,000 ML IV SCH ×2 (02:25→15:45)
[2019-10-15 02:38] LABS: BASOPHILS # (AUTO) 0.1 X10'3 (0-0.2); BASOPHILS % (AUTO) 0.8 % (0-1); EOSINOPHILS # (AUTO) 0.7 X10'3 (0-0.9); HEMATOCRIT 25.3 % (35.0-45.0); HEMOGLOBIN 8.4 g/dl (12.0-16.0); LYMPHOCYTES # (AUTO) 1.7 X10'3 (1.1-4.8); LYMPHOCYTES % (AUTO) 10.3 % (21-51); MEAN CORPUSCULAR HEMOGLOBIN 26.6 PG (27.0-31.0); MEAN CORPUSCULAR VOLUME 80.5 FL (78-98); MEAN PLATELET VOLUME 8.2 FL (7.4-10.4); MONOCYTES % (AUTO) 5.9 % (2-12); NEUTROPHILS # (AUTO) 12.9 X10'3 (1.8-7.7); PLATELET COUNT 388 X10'3 (140-440); RED BLOOD COUNT 3.15 X10'6 (4.20-5.60); RED CELL DISTRIBUTION WIDTH 19.9 % (11.5-14.5); WHITE BLOOD COUNT 16.4 X10'3 (4.5-11.0)
[2019-10-15 02:53] LABS: ALANINE AMINOTRANSFERASE 8 U/L (12-78); ALBUMIN 1.3 G/DL (3.4-5.0); ALBUMIN/GLOBULIN RATIO 0.3 (1.1-1.5); ALKALINE PHOSPHATASE 120 IU/L (46-116); ANION GAP 4 (8-16); ASPARTATE AMINO TRANSFERASE 15 U/L (10-37); BILIRUBIN,TOTAL 0.8 MG/DL (0.1-1.0); BLOOD UREA NITROGEN 14 MG/DL (7-18); BUN/CREATININE RATIO 10.5 (6.6-38.0); CALCIUM 7.5 MG/DL (8.5-10.1); CHLORIDE 110 MMOL/L (99-107); CREATININE 1.33 MG/DL (0.40-0.90); GLUCOSE 158 MG/DL (70-104); MAGNESIUM 1.6 MG/DL (1.5-2.4); PHOSPHORUS 2.5 MG/DL (2.3-4.5); POTASSIUM 3.4 MMOL/L (3.5-5.1); SODIUM 143 MMOL/L (135-145); TOTAL CARBON DIOXIDE 29.5 MMOL/L (24-32); TOTAL PROTEIN 5.9 G/DL (6.4-8.2); eGFR 41 ML/MIN
[2019-10-15] MEDS: DOPamine 400mg/D5W 250ml 250 ML IV PRN (03:34)
[2019-10-15] MEDS: ipratropium/albuterol 3ml nebule NEB SCH ×2 (03:43→10:06)
[2019-10-15] MEDS: potassium CL 10mEq/100ml bag 100 ML IV PRN (05:02)
[2019-10-15 06:19] LABS: ANISOCYTOSIS 2+; MICROCYTOSIS 1+; PLATELET ESTIMATE NORMAL; POIKILOCYTOSIS FEW; POLYCHROMASIA FEW; STOMATOCYTES 1+
[2019-10-15] MEDS: polyethylene glycol 3350 17gm powd pack PO SCH ×2 (08:00→20:00)
[2019-10-15] MEDS: docusate sod 100mg capsule PO SCH ×2 (08:00→20:00)
[2019-10-15] MEDS: apixaban 5mg tablet OGT SCH ×2 (08:42→21:13)
[2019-10-15] MEDS: lactobacillus rhamnosus 10,000 MMU CELLS/CAPSULE PO SCH ×2 (08:42→21:13)
[2019-10-15] MEDS: pantoprazole 40 MG vial IV SCH ×2 (08:42→21:13)
[2019-10-15] MEDS: piperacillin/tazo 3.375gm/50ml 50 ML IV SCH ×3 (08:42→16:18)
[2019-10-15] MEDS: K, MAG and/or Phos replacement - Verify level? MC SCH (08:43)
[2019-10-15] MEDS: mineral oil/petrolatum, white cream 113gm jar TP SCH ×2 (08:43→21:15)
[2019-10-15] MEDS: nystatin 15 GM powder TP SCH ×2 (08:43→21:15)
[2019-10-15] MEDS: albuterol 2.5 MG/3 ML nebule NEB SCH ×3 (16:03→23:11)
--- NOTE | 2019-10-15 18:40 | NUR ---
Patient in room CICU 2009. I have received report from Art RN and had the opportunity to ask questions and assume patient care. Patient in bed, alert/oriented x4 and offers no complaints at this time. Vitals WNL at this time. Dopamine infusing via PICC. Will continue to monitor patient.
--- NOTE | 2019-10-15 23:45 | NUR ---
Notified Reggie Eddy NP that patient's MAP has maintained above 60 since changing dopamine rate to 7mcg/kg/min. HR in atrial fibrillation in high 70s. Nunu states okay to leave rate non-titratable at 7mcg/kg/min and to transfer patient to PCU with tele.
[2019-10-16] VITALS (13 sets, daily range): BP systolic 76–103; BP diastolic 29–59
--- NOTE | 2019-10-16 00:03 | NUR ---
Report given to Nadeen SANCHEZ. All questions answered. Patient transferred via eleazar-bed with transport monitor in stable condition. All belongings transferred with patient.
[2019-10-16] MEDS: piperacillin/tazo 3.375gm/50ml 50 ML IV SCH ×3 (00:05→16:51)
[2019-10-16] MEDS: DOPamine 400mg/D5W 250ml 250 ML IV SCH ×4 (00:07→23:20)
--- NOTE | 2019-10-16 00:15 | NUR ---
Patient in room CICU 2009. I have received report from Dina ASSESSMENT NURSE and had the opportunity to ask questions and assume patient care.
--- NOTE | 2019-10-16 00:30 | NUR ---
Pt. arrived fr/ICU via a [facility] bed in no acute distress. Oriented to surroundings and POC. VS taken and stable, MAP 63 on arrival. BS Mobile initiated to track VS. Dopamine IV infusing as ord. Zosyn also inf at 12.5mg/HR. Pt. self admin Dilaudid per CADD. Drsg to L knee assessed, dry and intact. Elevated on pillow. Abd is lge, soft, and tender, BS sluggish X 4. Tolerating PO fluids well. Denies nausea. Wound Vac intact at 125mmHg, draining sml amt of serosang fluid.
[2019-10-16] MEDS: HYDROmorphone/NS 1 mg/ml CADD 50 ML IV SCH ×12 (01:00→23:00)
[2019-10-16] MEDS: albuterol 2.5 MG/3 ML nebule NEB SCH ×6 (03:57→23:03)
--- NOTE | 2019-10-16 06:45 | NUR ---
Patient in room PCU 3018. I have received report from Nadeen SANCHEZ and had the opportunity to ask questions and assume patient care.
--- NOTE | 2019-10-16 07:03 | NUR ---
Problems reprioritized. Patient report given, questions answered & plan of care reviewed with China SANCHEZ.
[2019-10-16 07:05] LABS: BASOPHILS # (AUTO) 0.1 X10'3 (0-0.2); BASOPHILS % (AUTO) 0.4 % (0-1); EOSINOPHILS # (AUTO) 0.1 X10'3 (0-0.9); EOSINOPHILS % (AUTO) 0.6 % (0-6); HEMATOCRIT 25.4 % (35.0-45.0); LYMPHOCYTES # (AUTO) 1.4 X10'3 (1.1-4.8); LYMPHOCYTES % (AUTO) 5.4 % (21-51); MEAN CORPUSCULAR HEMOGLOBIN 26.4 PG (27.0-31.0); MEAN CORPUSCULAR HGB CONC 31.5 g/dL (33.0-36.5); MEAN CORPUSCULAR VOLUME 83.6 FL (78-98); MEAN PLATELET VOLUME 8.5 FL (7.4-10.4); MONOCYTES # (AUTO) 1.1 X10'3 (0-0.9); MONOCYTES % (AUTO) 4.3 % (2-12); NEUTROPHILS % (AUTO) 89.3 % (42-75); PLATELET COUNT 372 X10'3 (140-440); RED BLOOD COUNT 3.03 X10'6 (4.20-5.60); RED CELL DISTRIBUTION WIDTH 20.3 % (11.5-14.5)
[2019-10-16 07:09] LABS: WHITE BLOOD COUNT 25.8 X10'3 (4.5-11.0)
[2019-10-16 07:37] LABS: ALANINE AMINOTRANSFERASE 7 U/L (12-78); ALBUMIN 1.2 G/DL (3.4-5.0); ALBUMIN/GLOBULIN RATIO 0.3 (1.1-1.5); ALKALINE PHOSPHATASE 126 IU/L (46-116); ANION GAP 10 (8-16); ASPARTATE AMINO TRANSFERASE 17 U/L (10-37); BILIRUBIN,TOTAL 0.6 MG/DL (0.1-1.0); BLOOD UREA NITROGEN 12 MG/DL (7-18); BUN/CREATININE RATIO 8.2 (6.6-38.0); CALCIUM 7.3 MG/DL (8.5-10.1); CHLORIDE 107 MMOL/L (99-107); CREATININE 1.46 MG/DL (0.40-0.90); GLUCOSE 101 MG/DL (70-104); MAGNESIUM 1.6 MG/DL (1.5-2.4); PHOSPHORUS 2.7 MG/DL (2.3-4.5); POTASSIUM 3.3 MMOL/L (3.5-5.1); SODIUM 143 MMOL/L (135-145); TOTAL CARBON DIOXIDE 25.7 MMOL/L (24-32); TOTAL PROTEIN 5.8 G/DL (6.4-8.2); eGFR 37 ML/MIN
[2019-10-16 07:50] LABS: TOTAL CELLS COUNTED 100
[2019-10-16 07:51] LABS: ANISOCYTOSIS 3+; PLATELET ESTIMATE NORMAL; POLYCHROMASIA 1+
--- NOTE | 2019-10-16 07:55 | NUR ---
LAB RESULTS TAKEN FROM LAB, REPORTED TO PRIMARY RN.
[2019-10-16] MEDS: docusate sod 100mg capsule PO SCH ×2 (08:00→21:14)
[2019-10-16] MEDS: polyethylene glycol 3350 17gm powd pack PO SCH ×2 (08:00→21:13)
[2019-10-16] MEDS: K, MAG and/or Phos replacement - Verify level? MC SCH (08:00)
[2019-10-16] MEDS ORDERED: vancomycin/NS 1 GM ADD-VANTAGE 250 ML IV ONE ×2 (08:00→10:30)
--- NOTE | 2019-10-16 08:01 | NUR ---
Critical WBC 25.8 reported to Sima Felix. Received orders for 1gm vancomycin IV once now, pharmacy to dose after.
[2019-10-16] MEDS: pantoprazole 40 MG vial IV SCH ×2 (08:59→21:14)
[2019-10-16] MEDS: apixaban 5mg tablet OGT SCH ×2 (09:00→21:14)
[2019-10-16] MEDS: lactobacillus rhamnosus 10,000 MMU CELLS/CAPSULE PO SCH ×2 (09:00→21:14)
[2019-10-16] MEDS: dextrose 5%-1/2 normal saline 1,000 ML IV SCH (09:05)
[2019-10-16] MEDS: nystatin 15 GM powder TP SCH ×2 (09:12→21:14)
[2019-10-16] MEDS: mineral oil/petrolatum, white cream 113gm jar TP SCH ×2 (09:15→21:14)
[2019-10-16] MEDS ORDERED: potassium Cl 20 mEq SR tablet PO PRN (10:20)
[2019-10-16] MEDS: potassium Cl 20 mEq SR tablet PO PRN ×3 (10:38→22:33)
[2019-10-16] MEDS: midodrine tablet 2.5 MG TABLET PO SCH ×3 (10:38→23:49)
--- NOTE | 2019-10-16 15:34 | NUR ---
Reassessment: Pt hates pureed food and advanced to mechanical soft/NTL diet per MD. Has feeder per SP recs. PO remains poor fluctuating 25-50% avg meals. Ensure pudding BIDBD added to meals for additional protein needs. LBM 10/15. Pt has acute respiratory failure w/ EF 65-70% per MD. Will continue to monitor for additional protein needs. Rec: 1. Continue mechanical soft/nectar thick liquids per ST/MD recs 2. Ensure pudding BIDBD 3. routine bowel care 4. weight per rx Addendum: 10/16/19 at [address] Amended: Links added.
--- NOTE | 2019-10-16 18:42 | NUR ---
Problems reprioritized. Patient report given, questions answered & plan of care reviewed with Candace SANCHEZ.
--- NOTE | 2019-10-16 19:07 | NUR ---
Patient in room PCU 3018. I have received report from and had the opportunity to ask questions and assume patient care.
--- NOTE | 2019-10-16 19:07 | NUR ---
Patient in room PCU 3018. I have received report from China SANCHEZ and had the opportunity to ask questions and assume patient care.
[2019-10-17] VITALS (12 sets, daily range): BP systolic 98–126; BP diastolic 50–65
[2019-10-17] MEDS: piperacillin/tazo 3.375gm/50ml 50 ML IV SCH ×3 (00:19→15:24)
[2019-10-17] MEDS: HYDROmorphone/NS 1 mg/ml CADD 50 ML IV SCH ×12 (02:36→23:00)
--- NOTE | 2019-10-17 02:50 | NUR ---
tried several angles and could not get the bed to take a weight.
[2019-10-17] MEDS: albuterol 2.5 MG/3 ML nebule NEB SCH ×6 (03:10→23:04)
[2019-10-17] MEDS: dextrose 5%-1/2 normal saline 1,000 ML IV SCH ×2 (04:57→08:29)
--- NOTE | 2019-10-17 06:03 | NUR ---
Problems reprioritized. Patient report given, questions answered & plan of care reviewed with China SANCHEZ.
--- NOTE | 2019-10-17 06:08 | NUR ---
Patient in room PCU 3018. I have received report from Candace SANCHEZ and had the opportunity to ask questions and assume patient care.
[2019-10-17 06:10] LABS: BASOPHILS # (AUTO) 0.1 X10'3 (0-0.2); BASOPHILS % (AUTO) 0.2 % (0-1); EOSINOPHILS # (AUTO) 0.3 X10'3 (0-0.9); EOSINOPHILS % (AUTO) 0.9 % (0-6); HEMATOCRIT 26.9 % (35.0-45.0); HEMOGLOBIN 8.6 g/dl (12.0-16.0); LYMPHOCYTES # (AUTO) 1.8 X10'3 (1.1-4.8); LYMPHOCYTES % (AUTO) 6.1 % (21-51); MEAN CORPUSCULAR HEMOGLOBIN 26.5 PG (27.0-31.0); MEAN CORPUSCULAR HGB CONC 32.1 g/dL (33.0-36.5); MEAN CORPUSCULAR VOLUME 82.4 FL (78-98); MEAN PLATELET VOLUME 8.3 FL (7.4-10.4); MONOCYTES # (AUTO) 1.5 X10'3 (0-0.9); NEUTROPHILS # (AUTO) 26.3 X10'3 (1.8-7.7); NEUTROPHILS % (AUTO) 87.8 % (42-75); PLATELET COUNT 454 X10'3 (140-440); RED BLOOD COUNT 3.26 X10'6 (4.20-5.60); RED CELL DISTRIBUTION WIDTH 21.9 % (11.5-14.5)
[2019-10-17 06:28] LABS: ALANINE AMINOTRANSFERASE 9 U/L (12-78); ALBUMIN 1.3 G/DL (3.4-5.0); ALBUMIN/GLOBULIN RATIO 0.3 (1.1-1.5); ALKALINE PHOSPHATASE 142 IU/L (46-116); ANION GAP 7 (8-16); ASPARTATE AMINO TRANSFERASE 14 U/L (10-37); BILIRUBIN,TOTAL 0.7 MG/DL (0.1-1.0); BLOOD UREA NITROGEN 15 MG/DL (7-18); CALCIUM 7.8 MG/DL (8.5-10.1); CHLORIDE 107 MMOL/L (99-107); CREATININE 1.66 MG/DL (0.40-0.90); GLUCOSE 130 MG/DL (70-104); MAGNESIUM 1.7 MG/DL (1.5-2.4); PHOSPHORUS 2.7 MG/DL (2.3-4.5); POTASSIUM 3.9 MMOL/L (3.5-5.1); PREALBUMIN 8.4 MG/DL (19-36); SODIUM 141 MMOL/L (135-145); TOTAL CARBON DIOXIDE 27.5 MMOL/L (24-32); TOTAL PROTEIN 6.3 G/DL (6.4-8.2); eGFR 32 ML/MIN
[2019-10-17 06:50] LABS: WHITE BLOOD COUNT 29.9 X10'3 (4.5-11.0)
[2019-10-17 07:13] LABS: TOTAL CELLS COUNTED 100
[2019-10-17 07:14] LABS: ANISOCYTOSIS 3+; PLATELET ESTIMATE INCREASED
[2019-10-17 07:15] LABS: POIKILOCYTOSIS FEW; POLYCHROMASIA FEW
[2019-10-17] MEDS: docusate sod 100mg capsule PO SCH ×2 (08:00→20:00)
[2019-10-17] MEDS: K, MAG and/or Phos replacement - Verify level? MC SCH (08:00)
[2019-10-17] MEDS: polyethylene glycol 3350 17gm powd pack PO SCH ×2 (08:00→20:00)
[2019-10-17] MEDS: DOPamine 400mg/D5W 250ml 250 ML IV SCH ×3 (08:29→18:45)
[2019-10-17] MEDS: apixaban 5mg tablet OGT SCH ×2 (08:29→20:24)
[2019-10-17] MEDS: pantoprazole 40 MG vial IV SCH ×2 (08:29→20:27)
[2019-10-17] MEDS: lactobacillus rhamnosus 10,000 MMU CELLS/CAPSULE PO SCH ×2 (08:29→20:24)
[2019-10-17] MEDS: midodrine tablet 2.5 MG TABLET PO SCH ×2 (08:29→15:29)
[2019-10-17] MEDS: nystatin 15 GM powder TP SCH ×2 (08:34→20:26)
[2019-10-17] MEDS: mineral oil/petrolatum, white cream 113gm jar TP SCH ×2 (08:34→20:00)
[2019-10-17 10:56] LABS: CLARITY,URINE TURBID (Clear); COLOR,URINE STRAW (Yellow); GLUCOSE, URINE NEGATIVE (Neg); KETONES,URINE NEGATIVE (Neg); LEUKOCYTE ESTERASE ,URINE LARGE (Neg); NITRITES, URINE NEGATIVE (Neg); OCCULT BLOOD,URINE MODERATE (Neg); PH,URINE 5.5 (4.8-8.0); PROTEIN,URINE TRACE mg/dl (Neg); UROBILINOGEN,URINE 0.2 E.U/dL (0.2-1.0)
[2019-10-17 10:58] LABS: UA COLLECTION TYPE FOLEY CATH
[2019-10-17 11:07] LABS: BACTERIA,URINE FEW /HPF (Neg); SQUAMOUS EPITHELIAL CELL,UR FEW /LPF (FEW); WBC,URINE 30-50 /HPF (0-4); YEAST MANY /HPF (NEGATIVE)
--- NOTE | 2019-10-17 15:16 | NUR ---
WOUND VAC EDUCATION PROVIDED BY WOUND CARE 1. Patient instructed to call the Wound Center or their Home Health Agency immediately if: * They notice a change in the color or amount of the fluid in the canister. * Their wound looks more red than usual or has a foul smell. * The skin around their wound looks reddened or irritated. * The dressing feels loose or appears to be loose. * They experience any increase or changes in their pain. * The alarm will not turn off. 2. Patient instructed that they should not be disconnected from suction for more than 2 hours at a time. * If they are not able to get the suction back on, they need to remove the dressing and take all of the foam out of the wound. * Then moisten sterile gauze with normal saline and place on/in the wound. * Change the dressing once a day until arrangements have been made to replace the wound vac dressing. 3. Patient instructed to turn the wound vac machine OFF and call 911 or go to the ED immediately if their canister fills rapidly with blood. 4. If any of these occur while in the hospital tell a nurse immediately. Addendum: 10/17/19 at 1516 by Jessica Ramos RN Amended: Links added.
--- NOTE | 2019-10-17 18:31 | NUR ---
Problems reprioritized. Patient report given, questions answered & plan of care reviewed with Idalia SANCHEZ.
--- NOTE | 2019-10-17 19:02 | NUR ---
Patient in room PCU 3018. I have received report from LAURA Atkinson and had the opportunity to ask questions and assume patient care.
[2019-10-17] MEDS: diatr meglu/diatrizoate 30ml oral sol.-(3 dose) bottle PO SCH (21:00)
[2019-10-18] VITALS (11 sets, daily range): BP systolic 88–107; BP diastolic 30–62
[2019-10-18] MEDS: piperacillin/tazo 3.375gm/50ml 50 ML IV SCH ×3 (00:26→16:50)
[2019-10-18] MEDS: midodrine tablet 2.5 MG TABLET PO SCH ×3 (00:26→16:48)
[2019-10-18] MEDS: DOPamine 400mg/D5W 250ml 250 ML IV SCH ×4 (00:51→20:49)
[2019-10-18] MEDS: HYDROmorphone/NS 1 mg/ml CADD 50 ML IV SCH ×12 (01:00→23:00)
--- NOTE | 2019-10-18 02:05 | NUR ---
Bedscale is not weighing patient accuratej
--- NOTE | 2019-10-18 02:06 | NUR ---
Bed scale is not weighing patient accurately. Addendum: 10/18/19 at 0206 by Idalia Strange RN Amended: Links added.
--- NOTE | 2019-10-18 02:41 | NUR ---
Patient's legs are +++++ pitting edema seemingly worse than the start of the shift. I have let Reggie Eddy know, and Dr. Bernal can follow up in the morning per Nunu.
[2019-10-18] MEDS: albuterol 2.5 MG/3 ML nebule NEB SCH ×6 (03:09→23:56)
[2019-10-18 05:07] LABS: ALANINE AMINOTRANSFERASE 9 U/L (12-78); ALBUMIN 1.3 G/DL (3.4-5.0); ALBUMIN/GLOBULIN RATIO 0.3 (1.1-1.5); ALKALINE PHOSPHATASE 133 IU/L (46-116); ANION GAP 7 (8-16); ASPARTATE AMINO TRANSFERASE 15 U/L (10-37); BASOPHILS # (AUTO) 0.1 X10'3 (0-0.2); BASOPHILS % (AUTO) 0.6 % (0-1); BILIRUBIN,TOTAL 0.6 MG/DL (0.1-1.0); BLOOD UREA NITROGEN 18 MG/DL (7-18); BUN/CREATININE RATIO 9.6 (6.6-38.0); CALCIUM 7.8 MG/DL (8.5-10.1); CHLORIDE 107 MMOL/L (99-107); CREATININE 1.88 MG/DL (0.40-0.90); EOSINOPHILS # (AUTO) 0.4 X10'3 (0-0.9); EOSINOPHILS % (AUTO) 1.7 % (0-6); GLUCOSE 123 MG/DL (70-104); HEMATOCRIT 25.8 % (35.0-45.0); HEMOGLOBIN 8.3 g/dl (12.0-16.0); LYMPHOCYTES # (AUTO) 1.4 X10'3 (1.1-4.8); LYMPHOCYTES % (AUTO) 5.9 % (21-51); MAGNESIUM 1.7 MG/DL (1.5-2.4); MEAN CORPUSCULAR HGB CONC 32.2 g/dL (33.0-36.5); MEAN CORPUSCULAR VOLUME 83.8 FL (78-98); MEAN PLATELET VOLUME 8.1 FL (7.4-10.4); MONOCYTES # (AUTO) 1.4 X10'3 (0-0.9); MONOCYTES % (AUTO) 5.7 % (2-12); NEUTROPHILS # (AUTO) 20.6 X10'3 (1.8-7.7); NEUTROPHILS % (AUTO) 86.1 % (42-75); PHOSPHORUS 3.2 MG/DL (2.3-4.5); PLATELET COUNT 502 X10'3 (140-440); POTASSIUM 3.9 MMOL/L (3.5-5.1); RED BLOOD COUNT 3.08 X10'6 (4.20-5.60); RED CELL DISTRIBUTION WIDTH 23.3 % (11.5-14.5); SODIUM 141 MMOL/L (135-145); TOTAL CARBON DIOXIDE 27.4 MMOL/L (24-32); TOTAL PROTEIN 6.4 G/DL (6.4-8.2); WHITE BLOOD COUNT 23.9 X10'3 (4.5-11.0); eGFR 28 ML/MIN
--- NOTE | 2019-10-18 06:11 | NUR ---
Problems reprioritized. Patient report given, questions answered & plan of care reviewed with LAURA Atkinson.
--- NOTE | 2019-10-18 06:13 | NUR ---
Patient in room PCU 3013. I have received report from Idalia SANCHEZ and had the opportunity to ask questions and assume patient care.
[2019-10-18 06:22] LABS: ANISOCYTOSIS 3+; PLATELET ESTIMATE INCREASED; POIKILOCYTOSIS FEW; POLYCHROMASIA FEW
[2019-10-18 06:23] LABS: LARGE PLATELETS FEW
[2019-10-18] MEDS: diatr meglu/diatrizoate 30ml oral sol.-(3 dose) bottle PO SCH (07:00)
[2019-10-18] MEDS: lactobacillus rhamnosus 10,000 MMU CELLS/CAPSULE PO SCH ×2 (07:29→20:51)
[2019-10-18] MEDS: apixaban 5mg tablet OGT SCH ×2 (07:29→20:51)
[2019-10-18] MEDS: fluconazole-Diflucan 200mg/NS 100 ML IV SCH (07:29)
[2019-10-18] MEDS: mineral oil/petrolatum, white cream 113gm jar TP SCH ×2 (07:30→20:00)
[2019-10-18] MEDS: pantoprazole 40 MG vial IV SCH ×2 (07:30→20:51)
[2019-10-18] MEDS: nystatin 15 GM powder TP SCH ×2 (07:30→20:51)
[2019-10-18] MEDS: polyethylene glycol 3350 17gm powd pack PO SCH ×2 (08:00→20:00)
[2019-10-18] MEDS: K, MAG and/or Phos replacement - Verify level? MC SCH (08:00)
[2019-10-18] MEDS: docusate sod 100mg capsule PO SCH ×2 (08:00→20:00)
[2019-10-18] MEDS ORDERED: VANCOMYCIN LEVEL IV ONE (13:30)
--- NOTE | 2019-10-18 14:49 | NUR ---
PRESSURE ULCER EDUCATION: DEFINITION: A pressure ulcer is an area of skin that breaks down when you stay in one position too long. The constant pressure against the skin reduces the blood flow to that area and the affected tissue dies. CAUSES: "Being bedridden or in a wheelchair "Fragile skin "Having a chronic condition, such as diabetes or vascular disease "Inability to move certain parts of your body without assistance "Older age "Incontinence of urine or stool SYMPTOMS: "A reddened area that DOES NOT turn white when pressed on - this can be the beginning of a pressure ulcer "A blister, deep sore or a crater - these can be advanced pressure ulcers FIRST AID: "Relieve the pressure on this area "Keep the area clean and dry "Call your primary doctor if you see any of the above symptoms "DO NOT massage the area "DO NOT use a donut shaped or ring shaped pillow- these actually interfere with the blood flow and cause complications PREVENTION: "Check for pressure ulcers everyday "Change position at least every two hours to relieve pressure "Use items that help relieve pressure- pillows, sheepskin, foam padding, and powders. "Keep skin clean and dry "Eat healthy well balanced meals "Exercise daily IF YOU SEE ANY OF THESE SYMPTOMS WHILE IN THE HOSPITAL - TELL YOUR NURSE IMMEDIATELY. IF YOU SEE ANY OF THESE SYMPTOMS WHILE AT HOME OR HAVE ANY QUESTIONS OR CONCERNS ABOUT PRESSURE ULCERS - CALL YOUR PRIMARY DOCTOR IMMEDIATELY. WOUND VAC EDUCATION PROVIDED BY WOUND CARE 1. Patient instructed to call the Wound Center or their Home Health Agency immediately if: * They notice a change in the color or amount of the fluid in the canister. * Their wound looks more red than usual or has a foul smell. * The skin around their wound looks reddened or irritated. * The dressing feels loose or appears to be loose. * They experience any increase or changes in their pain. * The alarm will not turn off. 2. Patient instructed that they should not be disconnected from suction for more than 2 hours at a time. * If they are not able to get the suction back on, they need to remove the dressing and take all of the foam out of the wound. * Then moisten sterile gauze with normal saline and place on/in the wound. * Change the dressing once a day until arrangements have been made to replace the wound vac dressing. 3. Patient instructed to turn the wound vac machine OFF and call 911 or go to the ED immediately if their canister fills rapidly with blood. 4. If any of these occur while in the hospital tell a nurse immediately. Addendum: 10/18/19 at 1449 by Jessica Ramos RN Amended: Links added.
[2019-10-18] MEDS: CADD PCA waste documentation MC PRN (18:06)
--- NOTE | 2019-10-18 18:26 | NUR ---
Patient in room PCU 3018. I have received report from LAURA Atkinson and had the opportunity to ask questions and assume patient care.
--- NOTE | 2019-10-18 18:26 | NUR ---
Problems reprioritized. Patient report given, questions answered & plan of care reviewed with Grayson SANCHEZ.
[2019-10-19] VITALS (12 sets, daily range): BP systolic 88–119; BP diastolic 44–71
[2019-10-19] MEDS: piperacillin/tazo 3.375gm/50ml 50 ML IV SCH (00:45)
[2019-10-19] MEDS: midodrine tablet 2.5 MG TABLET PO SCH ×3 (00:46→15:33)
[2019-10-19 02:08] LABS: BASOPHILS # (AUTO) 0.1 X10'3 (0-0.2); BASOPHILS % (AUTO) 0.7 % (0-1); EOSINOPHILS # (AUTO) 0.5 X10'3 (0-0.9); EOSINOPHILS % (AUTO) 2.3 % (0-6); HEMATOCRIT 25.4 % (35.0-45.0); HEMOGLOBIN 8.1 g/dl (12.0-16.0); LYMPHOCYTES # (AUTO) 1.5 X10'3 (1.1-4.8); LYMPHOCYTES % (AUTO) 7.6 % (21-51); MEAN CORPUSCULAR HEMOGLOBIN 26.9 PG (27.0-31.0); MEAN CORPUSCULAR VOLUME 84.1 FL (78-98); MEAN PLATELET VOLUME 8.1 FL (7.4-10.4); MONOCYTES # (AUTO) 1.2 X10'3 (0-0.9); MONOCYTES % (AUTO) 6.2 % (2-12); NEUTROPHILS # (AUTO) 16.6 X10'3 (1.8-7.7); NEUTROPHILS % (AUTO) 83.2 % (42-75); PLATELET COUNT 533 X10'3 (140-440); RED BLOOD COUNT 3.02 X10'6 (4.20-5.60); WHITE BLOOD COUNT 19.9 X10'3 (4.5-11.0)
[2019-10-19 02:11] LABS: ALANINE AMINOTRANSFERASE 10 U/L (12-78); ALBUMIN 1.3 G/DL (3.4-5.0); ALBUMIN/GLOBULIN RATIO 0.3 (1.1-1.5); ALKALINE PHOSPHATASE 140 IU/L (46-116); ANION GAP 8 (8-16); ASPARTATE AMINO TRANSFERASE 14 U/L (10-37); BILIRUBIN,TOTAL 0.7 MG/DL (0.1-1.0); BLOOD UREA NITROGEN 20 MG/DL (7-18); BUN/CREATININE RATIO 9.4 (6.6-38.0); CALCIUM 7.7 MG/DL (8.5-10.1); CHLORIDE 104 MMOL/L (99-107); CREATININE 2.13 MG/DL (0.40-0.90); GLUCOSE 111 MG/DL (70-104); MAGNESIUM 1.7 MG/DL (1.5-2.4); PHOSPHORUS 3.2 MG/DL (2.3-4.5); POTASSIUM 3.7 MMOL/L (3.5-5.1); SODIUM 138 MMOL/L (135-145); TOTAL CARBON DIOXIDE 25.6 MMOL/L (24-32); TOTAL PROTEIN 6.5 G/DL (6.4-8.2); eGFR 24 ML/MIN
[2019-10-19] MEDS: albuterol 2.5 MG/3 ML nebule NEB SCH ×2 (02:59→07:00)
[2019-10-19] MEDS: HYDROmorphone/NS 1 mg/ml CADD 50 ML IV SCH ×11 (03:00→23:00)
[2019-10-19 03:08] LABS: VANCOMYCIN,TROUGH 54.8 UG/ML (6.0-14.0)
--- NOTE | 2019-10-19 03:19 | NUR ---
Critical Vancomycin trough resulted at 54.8. Results documented in interventions and reported to Reggie Eddy NP. Patient referred to pharmacy where patient is being managed. Per NOC pharmacist, will hold 5th dose of Vancomycin and day shift will re-evaluate treatment in afternoon. Will continue to monitor closely.
[2019-10-19] MEDS: DOPamine 400mg/D5W 250ml 250 ML IV SCH ×3 (05:31→22:09)
[2019-10-19 05:34] LABS: ANISOCYTOSIS 3+; PLATELET ESTIMATE INCREASED; POIKILOCYTOSIS FEW; TOTAL CELLS COUNTED 100; TOXIC GRANULATION 2+
[2019-10-19 05:35] LABS: HYPOCHROMASIA 1+; POLYCHROMASIA FEW
--- NOTE | 2019-10-19 06:31 | NUR ---
Problems reprioritized. Patient report given, questions answered & plan of care reviewed with LAURA Castellanos.
--- NOTE | 2019-10-19 06:37 | NUR ---
Patient in room PCU 3018. I have received report from LAURA Galicia and had the opportunity to ask questions and assume patient care. Patient asleep in bed and in no acute distress.
[2019-10-19] MEDS: fluconazole-Diflucan 200mg/NS 100 ML IV SCH (07:31)
[2019-10-19] MEDS: nystatin 15 GM powder TP SCH ×2 (07:31→20:19)
[2019-10-19] MEDS: apixaban 5mg tablet OGT SCH ×2 (07:32→20:04)
[2019-10-19] MEDS: pantoprazole 40 MG vial IV SCH ×2 (07:32→20:12)
[2019-10-19] MEDS: lactobacillus rhamnosus 10,000 MMU CELLS/CAPSULE PO SCH ×2 (07:32→20:03)
[2019-10-19] MEDS: K, MAG and/or Phos replacement - Verify level? MC SCH (07:33)
[2019-10-19] MEDS: docusate sod 100mg capsule PO SCH ×2 (07:33→20:00)
[2019-10-19] MEDS: polyethylene glycol 3350 17gm powd pack PO SCH ×2 (07:33→20:00)
[2019-10-19] MEDS: mineral oil/petrolatum, white cream 113gm jar TP SCH ×2 (08:00→20:19)
[2019-10-19] MEDS ORDERED: levoFLOXACIN-Levaquin 500mg/D5 100 ML IV ONE (11:15)
--- NOTE | 2019-10-19 13:00 | NUR ---
Administered eucerin cream. Unable to scan bar code.
--- NOTE | 2019-10-19 16:53 | NUR ---
Reassessment: Pt s/p f/u BSS 10/[address] recs [facility] soft food with chopped meat and thin liquids. Pt averaging 50-75% PO intake not meeting nutrient needs. Pt seen at bedside endorses an improving appetite and is with no food preferences at this time other than ice tea with meals, d/w dietary. Pt with wound VAC, provided with written and verbal protein education with RD contact information. LBM 10/18. Pt denies GI symptoms at this time. Will continue to follow. Rec: 1. Continue mechanical soft/chop meat/thin liquids per ST 2. Ensure pudding BIDBD; monitor need for additional protein 3. Encourage PO intake 4. routine bowel care 5. weight per rx Addendum: 10/19/19 at [address] Amended: Links added.
--- NOTE | 2019-10-19 18:30 | NUR ---
Patient in room PCU 3018B. I have received report from LAURA Castellanos and had the opportunity to ask questions and assume patient care.
--- NOTE | 2019-10-19 18:32 | NUR ---
Problems reprioritized. Patient report given, questions answered & plan of care reviewed with LAURA Galicia. Patient stable at transfer of care.
[2019-10-20] VITALS (24 sets, daily range): BP systolic 100–142; BP diastolic 46–116
[2019-10-20] MEDS: HYDROmorphone/NS 1 mg/ml CADD 50 ML IV SCH ×8 (01:00→15:00)
[2019-10-20] MEDS: midodrine tablet 2.5 MG TABLET PO SCH ×3 (01:12→16:03)
[2019-10-20] MEDS ORDERED: VANCOMYCIN LEVEL IV ONE (01:30)
[2019-10-20 01:54] LABS: BASOPHILS # (AUTO) 0.1 X10'3 (0-0.2); BASOPHILS % (AUTO) 0.4 % (0-1); EOSINOPHILS # (AUTO) 0.5 X10'3 (0-0.9); EOSINOPHILS % (AUTO) 3.1 % (0-6); HEMATOCRIT 26.6 % (35.0-45.0); HEMOGLOBIN 8.6 g/dl (12.0-16.0); LYMPHOCYTES # (AUTO) 1.6 X10'3 (1.1-4.8); MEAN CORPUSCULAR HGB CONC 32.3 g/dL (33.0-36.5); MEAN CORPUSCULAR VOLUME 83.7 FL (78-98); MEAN PLATELET VOLUME 7.9 FL (7.4-10.4); MONOCYTES # (AUTO) 1.1 X10'3 (0-0.9); MONOCYTES % (AUTO) 7.2 % (2-12); NEUTROPHILS # (AUTO) 12.6 X10'3 (1.8-7.7); NEUTROPHILS % (AUTO) 79.3 % (42-75); PLATELET COUNT 529 X10'3 (140-440); RED BLOOD COUNT 3.18 X10'6 (4.20-5.60); RED CELL DISTRIBUTION WIDTH 22.9 % (11.5-14.5); WHITE BLOOD COUNT 15.9 X10'3 (4.5-11.0)
[2019-10-20 02:05] LABS: ALANINE AMINOTRANSFERASE 10 U/L (12-78); ALBUMIN 1.3 G/DL (3.4-5.0); ALBUMIN/GLOBULIN RATIO 0.3 (1.1-1.5); ALKALINE PHOSPHATASE 139 IU/L (46-116); ANION GAP 9 (8-16); ASPARTATE AMINO TRANSFERASE 14 U/L (10-37); BILIRUBIN,TOTAL 0.6 MG/DL (0.1-1.0); BLOOD UREA NITROGEN 21 MG/DL (7-18); BUN/CREATININE RATIO 9.1 (6.6-38.0); CALCIUM 7.5 MG/DL (8.5-10.1); CHLORIDE 104 MMOL/L (99-107); GLUCOSE 119 MG/DL (70-104); POTASSIUM 3.8 MMOL/L (3.5-5.1); SODIUM 138 MMOL/L (135-145); TOTAL CARBON DIOXIDE 25.1 MMOL/L (24-32); TOTAL PROTEIN 6.5 G/DL (6.4-8.2); eGFR 22 ML/MIN
[2019-10-20 02:14] LABS: MAGNESIUM 1.7 MG/DL (1.5-2.4); PHOSPHORUS 3.5 MG/DL (2.3-4.5); PREALBUMIN 7.8 MG/DL (19-36)
[2019-10-20 02:17] LABS: VANCOMYCIN,TROUGH 40.5 UG/ML (6.0-14.0)
--- NOTE | 2019-10-20 02:50 | NUR ---
Critical vancomycin trough of 40.5 down from 54.8 on 10/19. Expected result; will hold this dose per pharmacist.
[2019-10-20 03:03] LABS: TOTAL CELLS COUNTED 100
[2019-10-20 03:04] LABS: TOXIC VACUOLATION 1+
[2019-10-20 03:09] LABS: PLATELET ESTIMATE INCREASED
[2019-10-20] MEDS: DOPamine 400mg/D5W 250ml 250 ML IV SCH ×3 (04:05→21:00)
--- NOTE | 2019-10-20 06:05 | NUR ---
Patient in room PCU 3018. I have received report from Grayson SANCHEZ and had the opportunity to ask questions and assume patient care.
--- NOTE | 2019-10-20 06:08 | NUR ---
Problems reprioritized. Patient report given, questions answered & plan of care reviewed with LAURA Mccray.
[2019-10-20] MEDS: fluconazole-Diflucan 200mg/NS 100 ML IV SCH (07:17)
[2019-10-20] MEDS: lactobacillus rhamnosus 10,000 MMU CELLS/CAPSULE PO SCH ×2 (07:17→20:58)
[2019-10-20] MEDS: pantoprazole 40 MG vial IV SCH (07:18)
[2019-10-20] MEDS: nystatin 15 GM powder TP SCH ×2 (07:19→21:00)
[2019-10-20] MEDS: apixaban 5mg tablet OGT SCH ×2 (08:00→20:58)
[2019-10-20] MEDS: mineral oil/petrolatum, white cream 113gm jar TP SCH ×2 (08:00→20:00)
[2019-10-20] MEDS ORDERED: levoFLOXACIN-Levaquin 500mg/D5 100 ML IV SCH (08:00)
[2019-10-20] MEDS: polyethylene glycol 3350 17gm powd pack PO SCH ×2 (08:00→20:00)
[2019-10-20] MEDS: docusate sod 100mg capsule PO SCH ×2 (08:00→20:00)
[2019-10-20] MEDS: K, MAG and/or Phos replacement - Verify level? MC SCH (08:00)
[2019-10-20] MEDS ORDERED: fentaNYL/PF 50MCG/1 ML 2ML syringe ONE (09:46)
[2019-10-20] MEDS ORDERED: midazolam 2 mg/2 ml injection ONE (09:46)
[2019-10-20] MEDS: HYDROcodone/acetaminophen 10/325mg tab PO PRN (17:30)
[2019-10-20] MEDS: CADD PCA waste documentation MC PRN (17:43)
--- NOTE | 2019-10-20 18:08 | NUR ---
Problems reprioritized. Patient report given, questions answered & plan of care reviewed with Grayson SANCHEZ.
--- NOTE | 2019-10-20 19:04 | NUR ---
Patient in room PCU 3018B. I have received report from LAURA Mccray and had the opportunity to ask questions and assume patient care. Patient awake for bedside report and stable at this time. Dopamine infusing at 7 mcg/kg/min. Abdominal dressing has moderate sanguinous drainage. Will continue to monitor closely.
[2019-10-21] VITALS (18 sets, daily range): BP systolic 100–140; BP diastolic 52–88
[2019-10-21] MEDS: midodrine tablet 2.5 MG TABLET PO SCH ×4 (00:47→23:31)
[2019-10-21] MEDS: HYDROcodone/acetaminophen 10/325mg tab PO PRN ×2 (00:47→13:07)
--- NOTE | 2019-10-21 04:29 | NUR ---
Patient refusing to respond to staff. Stated earlier in shift that she "wants to be comfort care," and asked if comfort care is where "they can have unlimited pain meds."
[2019-10-21 04:47] LABS: BASOPHILS # (AUTO) 0.1 X10'3 (0-0.2); BASOPHILS % (AUTO) 0.6 % (0-1); EOSINOPHILS # (AUTO) 0.2 X10'3 (0-0.9); EOSINOPHILS % (AUTO) 1.5 % (0-6); HEMATOCRIT 23.5 % (35.0-45.0); HEMOGLOBIN 7.6 g/dl (12.0-16.0); LYMPHOCYTES # (AUTO) 1.6 X10'3 (1.1-4.8); LYMPHOCYTES % (AUTO) 11.4 % (21-51); MEAN CORPUSCULAR HEMOGLOBIN 26.7 PG (27.0-31.0); MEAN CORPUSCULAR HGB CONC 32.3 g/dL (33.0-36.5); MEAN CORPUSCULAR VOLUME 82.6 FL (78-98); MEAN PLATELET VOLUME 7.8 FL (7.4-10.4); MONOCYTES # (AUTO) 1.2 X10'3 (0-0.9); MONOCYTES % (AUTO) 8.5 % (2-12); NEUTROPHILS # (AUTO) 11.1 X10'3 (1.8-7.7); PLATELET COUNT 556 X10'3 (140-440); RED BLOOD COUNT 2.84 X10'6 (4.20-5.60); RED CELL DISTRIBUTION WIDTH 23.4 % (11.5-14.5); WHITE BLOOD COUNT 14.2 X10'3 (4.5-11.0)
[2019-10-21] MEDS: DOPamine 400mg/D5W 250ml 250 ML IV SCH ×2 (04:54→14:58)
[2019-10-21 05:05] LABS: ALANINE AMINOTRANSFERASE 9 U/L (12-78); ALBUMIN 1.3 G/DL (3.4-5.0); ALBUMIN/GLOBULIN RATIO 0.3 (1.1-1.5); ALKALINE PHOSPHATASE 146 IU/L (46-116); ANION GAP 9 (8-16); ASPARTATE AMINO TRANSFERASE 16 U/L (10-37); BILIRUBIN,TOTAL 0.7 MG/DL (0.1-1.0); BLOOD UREA NITROGEN 22 MG/DL (7-18); BUN/CREATININE RATIO 9.3 (6.6-38.0); CALCIUM 7.7 MG/DL (8.5-10.1); CHLORIDE 105 MMOL/L (99-107); CREATININE 2.36 MG/DL (0.40-0.90); GLUCOSE 112 MG/DL (70-104); MAGNESIUM 1.8 MG/DL (1.5-2.4); PHOSPHORUS 3.1 MG/DL (2.3-4.5); POTASSIUM 3.9 MMOL/L (3.5-5.1); SODIUM 138 MMOL/L (135-145); TOTAL PROTEIN 6.4 G/DL (6.4-8.2); eGFR 21 ML/MIN
--- NOTE | 2019-10-21 06:21 | NUR ---
Patient in room PCU 3018. I have received report from LAURA Galicia and had the opportunity to ask questions and assume patient care.
--- NOTE | 2019-10-21 06:41 | NUR ---
Problems reprioritized. Patient report given, questions answered & plan of care reviewed with LAURA Long.
[2019-10-21 07:44] LABS: ANISOCYTOSIS 3+; HYPOCHROMASIA 1+; MICROCYTOSIS 1+; PLATELET ESTIMATE INCREASED; POIKILOCYTOSIS FEW; POLYCHROMASIA 1+
[2019-10-21] MEDS: K, MAG and/or Phos replacement - Verify level? MC SCH (08:00)
[2019-10-21] MEDS: apixaban 5mg tablet OGT SCH ×2 (08:22→19:31)
[2019-10-21] MEDS: lactobacillus rhamnosus 10,000 MMU CELLS/CAPSULE PO SCH ×2 (08:22→19:31)
[2019-10-21] MEDS: docusate sod 100mg capsule PO SCH ×2 (08:22→19:31)
[2019-10-21] MEDS: fluconazole-Diflucan 200mg/NS 100 ML IV SCH (08:22)
[2019-10-21] MEDS: nystatin 15 GM powder TP SCH ×2 (08:23→19:33)
[2019-10-21] MEDS: mineral oil/petrolatum, white cream 113gm jar TP SCH ×2 (08:24→19:33)
[2019-10-21] MEDS: pantoprazole 40mg Tablet.DR PO SCH (08:26)
[2019-10-21] MEDS: polyethylene glycol 3350 17gm powd pack PO SCH ×2 (08:26→19:31)
--- NOTE | 2019-10-21 09:49 | NUR ---
Spoke with Dr Bernal regarding large amt of sanguinous drainage from around CAMILLE drain. IR to assess drain and drain dressing/ dressing
--- NOTE | 2019-10-21 09:58 | NUR ---
IR saw pt and agress sanguinous drainage is coming from site. and drsg needs to be changed. Pt is suppose to go to [facility] today. Dr Bernal states that he will reassess her prior to discharge and maybe delay d/c for now.
[2019-10-21] MEDS ORDERED: VANCOMYCIN LEVEL IV ONE (13:30)
[2019-10-21 15:04] LABS: HEMATOCRIT 22.3 % (35.0-45.0); HEMOGLOBIN 7.3 g/dl (12.0-16.0); MEAN CORPUSCULAR HEMOGLOBIN 27.1 PG (27.0-31.0); MEAN CORPUSCULAR HGB CONC 32.7 g/dL (33.0-36.5); MEAN PLATELET VOLUME 7.5 FL (7.4-10.4); PLATELET COUNT 554 X10'3 (140-440); RED BLOOD COUNT 2.69 X10'6 (4.20-5.60); RED CELL DISTRIBUTION WIDTH 23.2 % (11.5-14.5); WHITE BLOOD COUNT 13.4 X10'3 (4.5-11.0)
--- NOTE | 2019-10-21 18:00 | NUR ---
Patient in room PCU 3018. I have received report from Jojo SANCHEZ and had the opportunity to ask questions and assume patient care.
--- NOTE | 2019-10-21 18:19 | NUR ---
Problems reprioritized. Patient report given, questions answered & plan of care reviewed with LAURA Funez.
[2019-10-22] VITALS (16 sets, daily range): BP systolic 77–130; BP diastolic 47–75
--- NOTE | 2019-10-22 05:29 | NUR ---
End Noc Note Patient was able to get some sleep tonight. Often refuses to turn to get more rest and sleep. Left knee area very weepy, not much output in CAMILLE to measure, abdominal incision area not seeping blood. Dopamine gtt still same rate. Will continue to monitor.
--- NOTE | 2019-10-22 06:07 | NUR ---
Problems reprioritized. Patient report given, questions answered & plan of care reviewed with Jojo SANCHEZ.
[2019-10-22] MEDS: HYDROcodone/acetaminophen 10/325mg tab PO PRN ×2 (06:44→16:38)
[2019-10-22] MEDS: pantoprazole 40mg Tablet.DR PO SCH (06:44)
--- NOTE | 2019-10-22 06:49 | NUR ---
Patient in room PCU 3018. I have received report from LAURA Reddy and had the opportunity to ask questions and assume patient care.
[2019-10-22] MEDS: levoFLOXACIN-Levaquin 500mg/D5 100 ML IV SCH (07:22)
[2019-10-22] MEDS: fluconazole-Diflucan 200mg/NS 100 ML IV SCH (07:23)
[2019-10-22] MEDS: lactobacillus rhamnosus 10,000 MMU CELLS/CAPSULE PO SCH ×2 (07:24→20:11)
[2019-10-22] MEDS: midodrine tablet 2.5 MG TABLET PO SCH ×2 (07:24→16:37)
[2019-10-22] MEDS: DOPamine 400mg/D5W 250ml 250 ML IV SCH ×2 (07:24→17:33)
[2019-10-22] MEDS: apixaban 5mg tablet OGT SCH ×2 (07:24→20:11)
[2019-10-22] MEDS: K, MAG and/or Phos replacement - Verify level? MC SCH (07:25)
[2019-10-22] MEDS: polyethylene glycol 3350 17gm powd pack PO SCH ×2 (07:25→20:00)
[2019-10-22] MEDS: docusate sod 100mg capsule PO SCH ×2 (07:25→20:00)
[2019-10-22] MEDS ORDERED: VANCOMYCIN LEVEL IV ONE (13:00)
[2019-10-22] MEDS ORDERED: vancomycin/NS 1 GM ADD-VANTAGE 250 ML X 1 DOSE IV PRN (13:35)
--- NOTE | 2019-10-22 15:00 | NUR ---
Reassessment: Pt continues averaging 50-75% PO intake likely not meeting nutrient needs. Pt seen at bedside denies food preferences at this time. Pt states she generally eats small meals and is getting full from meals. Lunch tray visible during RD visit, noted to be about 65% consumed. Pt reports she is drinking her beverages. Pt with RD contact information and encouraged to reach out if she has food preferences. LBM 10/21. Will continue to follow closely. Rec: 1. Continue mechanical soft/chop meat/thin liquids per ST 2. Ensure pudding BIDBD; monitor need for additional protein 3. Encourage PO intake 4. routine bowel care 5. weight per rx Addendum: 10/22/19 at [address] Amended: Links added.
--- NOTE | 2019-10-22 16:24 | NUR ---
[id number] MESSAGE: [id number] Brittany Sarmiento drip was d/c'd ?? LAURA Uribe [id number]
--- NOTE | 2019-10-22 17:27 | NUR ---
weight not taken Addendum: 10/22/19 at 1730 by Lacey Harley RN Amended: Links added.
[2019-10-22] MEDS: mineral oil/petrolatum, white cream 113gm jar TP SCH ×2 (17:34→20:12)
[2019-10-22] MEDS: nystatin 15 GM powder TP SCH ×2 (17:34→20:12)
--- NOTE | 2019-10-22 17:47 | NUR ---
DopaMINE DRIP TITRATED TO FROM 7MCG TO 5 MCG/KG/MN monitor for hypotension
--- NOTE | 2019-10-22 18:00 | NUR ---
Patient in room PCU 3018. I have received report from Jojo SANCHEZ and had the opportunity to ask questions and assume patient care.
--- NOTE | 2019-10-22 19:00 | NUR ---
Problems reprioritized. Patient report given, questions answered & plan of care reviewed with LAURA Reddy.
[2019-10-23] VITALS (12 sets, daily range): BP systolic 94–120; BP diastolic 47–58
[2019-10-23] MEDS: midodrine tablet 2.5 MG TABLET PO SCH ×3 (00:05→17:04)
[2019-10-23] MEDS: VANCOMYCIN LEVEL IV SCH (03:00)
--- NOTE | 2019-10-23 04:20 | NUR ---
PAGER ID: [phone] MESSAGE: [id number] Brittany Fan: critical Vanco trough 25.7, yesterday 26.8. alessandra SANCHEZ [phone]
[2019-10-23] MEDS: DOPamine 400mg/D5W 250ml 250 ML IV SCH ×2 (05:59→17:15)
--- NOTE | 2019-10-23 06:25 | NUR ---
Problems reprioritized. Patient report given, questions answered & plan of care reviewed with Grecia SANCHEZ.
--- NOTE | 2019-10-23 06:29 | NUR ---
Patient in room PCU 3018. I have received report from Maureen SANCHEZ and had the opportunity to ask questions and assume patient care. Patient is awake and oriented, unlabored respirations, gtt running per order. Patient CAMILLE drain dressing is CDI and the collection chamber has minimal drainage at this time. LLE wound dressing is cdi, and patient is comfortable and offering no complaints at this time. Will continue to monitor.
[2019-10-23] MEDS: fluconazole-Diflucan 200mg/NS 100 ML IV SCH (08:00)
[2019-10-23] MEDS: K, MAG and/or Phos replacement - Verify level? MC SCH (08:00)
[2019-10-23] MEDS: pantoprazole 40mg Tablet.DR PO SCH (08:00)
[2019-10-23] MEDS: lactobacillus rhamnosus 10,000 MMU CELLS/CAPSULE PO SCH ×2 (08:00→19:56)
[2019-10-23] MEDS: polyethylene glycol 3350 17gm powd pack PO SCH ×2 (08:00→20:00)
[2019-10-23] MEDS: docusate sod 100mg capsule PO SCH ×2 (08:00→20:00)
[2019-10-23] MEDS: apixaban 5mg tablet OGT SCH ×2 (08:00→19:56)
[2019-10-23] MEDS: mineral oil/petrolatum, white cream 113gm jar TP SCH ×2 (08:01→20:48)
[2019-10-23] MEDS: nystatin 15 GM powder TP SCH ×2 (08:01→19:56)
[2019-10-23 10:46] LABS: ALANINE AMINOTRANSFERASE 9 U/L (12-78); ALBUMIN 1.4 G/DL (3.4-5.0); ALBUMIN/GLOBULIN RATIO 0.3 (1.1-1.5); ALKALINE PHOSPHATASE 148 IU/L (46-116); ANION GAP 11 (8-16); ASPARTATE AMINO TRANSFERASE 18 U/L (10-37); BILIRUBIN,TOTAL 0.5 MG/DL (0.1-1.0); BLOOD UREA NITROGEN 22 MG/DL (7-18); BUN/CREATININE RATIO 9.6 (6.6-38.0); CALCIUM 7.7 MG/DL (8.5-10.1); CHLORIDE 107 MMOL/L (99-107); GLUCOSE 119 MG/DL (70-104); MAGNESIUM 1.7 MG/DL (1.5-2.4); POTASSIUM 3.6 MMOL/L (3.5-5.1); SODIUM 142 MMOL/L (135-145); TOTAL CARBON DIOXIDE 24.4 MMOL/L (24-32); TOTAL PROTEIN 5.9 G/DL (6.4-8.2); eGFR 22 ML/MIN
--- NOTE | 2019-10-23 10:55 | NUR ---
Spoke with MD riley
--- NOTE | 2019-10-23 10:55 | NUR ---
Spoke with Dr. Holcomb at bedside regarding the patient's physical therapy, no binder order obtained. Order for mornign labs obtained, labs drawn from PICC. Patient worked with PT in the bed at this time, CAMILLE drain still intact and bloody around the site. Patient is refusing to have wound care at this time, is going to take a nap and then will allow wound care to be done.
--- NOTE | 2019-10-23 11:52 | NUR ---
Patient worked with PT in bed, just arms and legs. Patient is in sitting mode in bed. Patient still refusing wound care until after lunch, offers no complaints at this time, will continue to monitor.
--- NOTE | 2019-10-23 13:30 | NUR ---
Wound care provided per order, Patient tolerated well. Patient had scant amount of stool. Optifoam cdi. Patient educated on the importance of turning and was agreeable at this time. Will continue to monitor.
[2019-10-23] MEDS ORDERED: midodrine tablet 2.5 MG TABLET PO SCH (16:00)
--- NOTE | 2019-10-23 17:23 | NUR ---
Patient was found not feeling well, checked BP which was low. Dopamine was on TKO mode and was fixed. Patient's BP came up and the patient stated she is feeling better now. New dopamine gtt bag administered with new tubing. Patient is now eating dinner and feels good. Will continue to monitor
--- NOTE | 2019-10-23 18:14 | NUR ---
Problems reprioritized. Patient report given, questions answered & plan of care reviewed with Carine SANCHEZ.
--- NOTE | 2019-10-23 18:55 | NUR ---
Patient in room PCU 3018. I have received report from Grecia SANCHEZ and had the opportunity to ask questions and assume patient care.
[2019-10-24] VITALS (14 sets, daily range): BP systolic 42–123; BP diastolic 38–110
[2019-10-24] MEDS: midodrine tablet 2.5 MG TABLET PO SCH ×3 (00:02→16:26)
[2019-10-24] MEDS: VANCOMYCIN LEVEL IV SCH (03:00)
[2019-10-24] MEDS: DOPamine 400mg/D5W 250ml 250 ML IV SCH ×2 (04:29→15:08)
--- NOTE | 2019-10-24 05:29 | NUR ---
[place] documentation: I have reviewed and agree with all interventions, assessments performed and documented by Jamilah SANCHEZ. [place] Medication Administration: For this medication-pass time frame, all medication were reviewed, dispensed, administered and documented per hospital policy by Jamilah SANCHEZ.
[2019-10-24 05:32] LABS: BASOPHILS # (AUTO) 0.1 X10'3 (0-0.2); BASOPHILS % (AUTO) 0.9 % (0-1); EOSINOPHILS # (AUTO) 0.5 X10'3 (0-0.9); EOSINOPHILS % (AUTO) 4.6 % (0-6); LYMPHOCYTES % (AUTO) 17.1 % (21-51); MEAN CORPUSCULAR HEMOGLOBIN 27.4 PG (27.0-31.0); MEAN CORPUSCULAR HGB CONC 32.8 g/dL (33.0-36.5); MEAN CORPUSCULAR VOLUME 83.6 FL (78-98); MEAN PLATELET VOLUME 7.4 FL (7.4-10.4); MONOCYTES % (AUTO) 8.5 % (2-12); NEUTROPHILS # (AUTO) 7.9 X10'3 (1.8-7.7); NEUTROPHILS % (AUTO) 68.9 % (42-75); PLATELET COUNT 549 X10'3 (140-440); RED BLOOD COUNT 2.36 X10'6 (4.20-5.60); RED CELL DISTRIBUTION WIDTH 25.1 % (11.5-14.5); WHITE BLOOD COUNT 11.5 X10'3 (4.5-11.0)
[2019-10-24 05:40] LABS: HEMATOCRIT 19.7 % (35.0-45.0); HEMOGLOBIN 6.5 g/dl (12.0-16.0)
--- NOTE | 2019-10-24 05:53 | NUR ---
Reported critical H&H of 6.[address] Galvez and he said to let the dayshift know. No orders received.
[2019-10-24 06:07] LABS: PREALBUMIN 12.8 MG/DL (19-36)
[2019-10-24 06:10] LABS: VANCOMYCIN,TROUGH 21.2 UG/ML (6.0-14.0)
[2019-10-24 06:15] LABS: ANISOCYTOSIS 3+; LARGE PLATELETS FEW; PLATELET ESTIMATE INCREASED; POLYCHROMASIA FEW
[2019-10-24 06:16] LABS: HYPOCHROMASIA 1+
--- NOTE | 2019-10-24 06:35 | NUR ---
Problems reprioritized. Patient report given, questions answered & plan of care reviewed with Lachelle SANCHEZ.
--- NOTE | 2019-10-24 07:18 | NUR ---
Patient in room PCU 3018. I have received report from Carine and had the opportunity to ask questions and assume patient care.
[2019-10-24] MEDS: K, MAG and/or Phos replacement - Verify level? MC SCH (08:00)
[2019-10-24] MEDS: docusate sod 100mg capsule PO SCH ×2 (08:00→09:48)
[2019-10-24] MEDS: polyethylene glycol 3350 17gm powd pack PO SCH (08:00)
[2019-10-24 08:55] LABS: ALANINE AMINOTRANSFERASE 11 U/L (12-78); ALBUMIN 1.5 G/DL (3.4-5.0); ALBUMIN/GLOBULIN RATIO 0.3 (1.1-1.5); ALKALINE PHOSPHATASE 161 IU/L (46-116); ANION GAP 6 (8-16); ASPARTATE AMINO TRANSFERASE 22 U/L (10-37); BILIRUBIN,TOTAL 0.5 MG/DL (0.1-1.0); BLOOD UREA NITROGEN 22 MG/DL (7-18); BUN/CREATININE RATIO 9.4 (6.6-38.0); CHLORIDE 109 MMOL/L (99-107); CREATININE 2.35 MG/DL (0.40-0.90); GLUCOSE 106 MG/DL (70-104); POTASSIUM 3.5 MMOL/L (3.5-5.1); SODIUM 141 MMOL/L (135-145); TOTAL CARBON DIOXIDE 25.8 MMOL/L (24-32); eGFR 21 ML/MIN
[2019-10-24 09:02] LABS: CALCIUM 7.8 MG/DL (8.5-10.1)
[2019-10-24] MEDS: apixaban 5mg tablet OGT SCH (09:47)
[2019-10-24] MEDS: lactobacillus rhamnosus 10,000 MMU CELLS/CAPSULE PO SCH (09:48)
[2019-10-24] MEDS: nystatin 15 GM powder TP SCH (09:49)
[2019-10-24] MEDS: mineral oil/petrolatum, white cream 113gm jar TP SCH (09:49)
[2019-10-24] MEDS: levoFLOXACIN-Levaquin 500mg/D5 100 ML IV SCH (09:49)
[2019-10-24] MEDS: fluconazole-Diflucan 200mg/NS 100 ML IV SCH (09:49)
[2019-10-24] MEDS ORDERED: micafungin inj 150 MG in normal saline 100ml IV soln 100 ML IV SCH (10:10)
[2019-10-24] MEDS ORDERED: metroNIDAZOLE-Flagyl 500mg/NS 100 ML IV SCH (10:10)
[2019-10-24] MEDS: pantoprazole 40mg Tablet.DR PO SCH (11:09)
[2019-10-24] MEDS ORDERED: sulfmethoxaz/trimethoprim inj 20 ML in dextrose 5%-water 230 ML IV SCH (11:30)
[2019-10-24] MEDS: HYDROcodone/acetaminophen 10/325mg tab PO PRN (12:33)
--- NOTE | 2019-10-24 16:59 | NUR ---
Report called to Gurpreet at [facility]. Vital signs stable at time of transfer. Dark nurse transported patient r/t continual Dobutamine administration. Patient transferred with PICC to [facility], F/C in place, wound vac and CAMILLE drain. Wound care pictures taken within 24 hrs and patient was assessed by wound care today. Tele removed. Midodrine administered as ordered. Gurpreet to administer Flagyl r/t early seed cone picker.
--- NOTE | 2019-10-24 17:15 | NUR ---
CAROLINA SANCHEZ transported pt to [facility]. Pt tolerated transport without complications or complaints. Returned with IV pump, however Chao RN-BSN reported, "We keep wound vac pumps and return them when the pt is done with them." Wound pump remained with pt.
== END 2019-10-24 16:42 | DRG 710 ==
LOC: ER 02:57 → ED HOLD 06:15 → CICU 2S 07:44 → PCU 3S 10-16 00:20
PROVIDERS: ADMIT Internal Medicine Critical Care Medicine; ATTEND Internal Medicine Critical Care Medicine
PROC: 5A1955Z Respiratory Ventilation, Greater than 96 Consecutive Hours (ICD-10-PCS; 2019-10-06)
PROC: 30233N1 Transfusion of Nonautologous Red Blood Cells into Peripheral Vein, Percutaneous Approach (ICD-10-PCS; 2019-10-06)
PROC: 0BH17EZ Insertion of Endotracheal Airway into Trachea, Via Natural or Artificial Opening (ICD-10-PCS; 2019-10-06)
PROC: 0DU607Z Supplement Stomach with Autologous Tissue Substitute, Open Approach (ICD-10-PCS; principal; 2019-10-06 07:12)
PROC: 02HV33Z Insertion of Infusion Device into Superior Vena Cava, Percutaneous Approach (ICD-10-PCS; 2019-10-14)
PROC: B548ZZA Ultrasonography of Superior Vena Cava, Guidance (ICD-10-PCS; 2019-10-14)
PROC: 0F9230Z Drainage of Left Lobe Liver with Drainage Device, Percutaneous Approach (ICD-10-PCS; 2019-10-20)
DX: A41.9 Sepsis, unspecified organism (principal); R65.21 Severe sepsis with septic shock; K65.1 Peritoneal abscess; E43 Unspecified severe protein-calorie malnutrition; K25.5 Chronic or unspecified gastric ulcer with perforation; J96.01 Acute respiratory failure with hypoxia; J96.02 Acute respiratory failure with hypercapnia; I95.9 Hypotension, unspecified; E66.01 Morbid (severe) obesity due to excess calories; Z68.43 Body mass index [BMI] 50.0-59.9, adult; J18.9 Pneumonia, unspecified organism; N17.9 Acute kidney failure, unspecified; N18.4 Chronic kidney disease, stage 4 (severe); I50.9 Heart failure, unspecified; D50.9 Iron deficiency anemia, unspecified; R16.0 Hepatomegaly, not elsewhere classified; G47.30 Sleep apnea, unspecified; G35 Multiple sclerosis; J44.0 Chronic obstructive pulmonary disease with (acute) lower respiratory infection; I89.0 Lymphedema, not elsewhere classified; J98.11 Atelectasis; Z79.01 Long term (current) use of anticoagulants; Z85.42 Personal history of malignant neoplasm of other parts of uterus; Z86.718 Personal history of other venous thrombosis and embolism; Z90.710 Acquired absence of both cervix and uterus; Z88.1 Allergy status to other antibiotic agents; Z88.8 Allergy status to other drugs, medicaments and biological substances; Z79.899 Other long term (current) drug therapy
CPT/HCPCS: 36415; 36573; 36600; 49406; 71045; 74176; 76937; 80047; 80053; 80202; 81001; 82803; 82948; 83540; 83550; 83605; 83735; 84100; 84132; 84134; 84484; 85018; 85025; 85027; 85610; 85730; 86885; 86900; 86901; 86920; 87040; 87070; 87077; 87081; 87088; 87186; 92508; 92616; 93005; 93306; 93970; 94002; 94003; 94640; 94660; 94667; 94668; 94760; 97110; 97112; 97161; 97530; 99152; 99291; A4215; A4618; A6550; A7000; C9113; G0378; J1170; J1265; J1450; J1956; J2001; J2248; J2250; J2543; J2795; J3010; J3370; J3480; J3490; J7030; J7040; J7060; J7120; P9016; P9045; Q9963

== ENCOUNTER 2021-03-31 14:27 | Inpatient (IN) | payer MEDICAID ==
[~2021-03-31] VITALS: Ht 172.7 cm; Wt 127.5 kg
[2021-03-31 17:05] VITALS: BP 106/66
[2021-03-31] MEDS ORDERED: acetaminophen 325mg tablet PO PRN ×2 (17:20)
[2021-03-31] MEDS ORDERED: ondansetron/PF 4mg/2ml inj IV PRN (17:20)
[2021-03-31] MEDS ORDERED: magnesium hydroxide 30ml (MOM) UD suspension PO PRN (17:20)
[2021-03-31] MEDS ORDERED: morphine 2 MG/ML inj. syringe IV PRN ×2 (17:20)
[2021-03-31] MEDS ORDERED: mag hydrox/Alum hydrox/simeth 30ml oral suspension PO PRN (17:20)
[2021-03-31] MEDS ORDERED: LEVO25TA7 PO (17:23)
[2021-03-31] MEDS ORDERED: SODI30SP3 BOTHNARES (17:23)
[2021-03-31] MEDS ORDERED: NYSPWD TP (17:23)
[2021-03-31] MEDS ORDERED: AMIT10TA6 PO (17:23)
[2021-03-31] MEDS ORDERED: LIDO700A32 TOP (17:23)
[2021-03-31] MEDS ORDERED: FAMO20TA82 PO (17:23)
[2021-03-31] MEDS ORDERED: LEVO500T89 PO (17:23)
[2021-03-31] MEDS ORDERED: LACT1CAP26 PO (17:23)
[2021-03-31] MEDS ORDERED: TIOT18CA3 IH (17:23)
[2021-03-31 18:00] VITALS: BP 114/47
[2021-03-31 18:11] LABS: BASOPHILS % (AUTO) 0.8 % (0-1); EOSINOPHILS # (AUTO) 0.1 X10'3 (0-0.9); EOSINOPHILS % (AUTO) 1.7 % (0-6); HEMATOCRIT 34.2 % (35.0-45.0); HEMOGLOBIN 10.9 g/dl (12.0-16.0); LYMPHOCYTES # (AUTO) 0.8 X10'3 (1.1-4.8); LYMPHOCYTES % (AUTO) 15.7 % (21-51); MEAN CORPUSCULAR HEMOGLOBIN 28.3 PG (27.0-31.0); MEAN CORPUSCULAR HGB CONC 31.9 g/dL (33.0-36.5); MEAN CORPUSCULAR VOLUME 88.8 FL (78-98); MEAN PLATELET VOLUME 10.3 FL (7.4-10.4); MONOCYTES # (AUTO) 0.6 X10'3 (0-0.9); MONOCYTES % (AUTO) 11.7 % (2-12); NEUTROPHILS # (AUTO) 3.4 X10'3 (1.8-7.7); NEUTROPHILS % (AUTO) 70.1 % (42-75); PLATELET COUNT 156 X10'3 (140-440); RED BLOOD COUNT 3.85 X10'6 (4.20-5.60); RED CELL DISTRIBUTION WIDTH 16.1 % (11.5-14.5); WHITE BLOOD COUNT 4.9 X10'3 (4.5-11.0)
--- NOTE | 2021-03-31 18:19 | NUR ---
Problems reprioritized. Patient report given, questions answered & plan of care reviewed with Rita SANCHEZ.
[2021-03-31 18:35] LABS: ALBUMIN 2.9 G/DL (3.4-5.0); ANION GAP 3 (8-16); BLOOD UREA NITROGEN 71 MG/DL (7-18); BUN/CREATININE RATIO 24.7 (6.6-38.0); CALCIUM 8.3 MG/DL (8.5-10.1); CHLORIDE 104 MMOL/L (99-107); CREATININE 2.87 MG/DL (0.40-0.90); POTASSIUM 4.7 MMOL/L (3.5-5.1); SODIUM 143 MMOL/L (135-145); TOTAL CARBON DIOXIDE 35.6 MMOL/L (24-32); eGFR 17 ML/MIN
[2021-03-31 18:37] LABS: GLUCOSE 102 MG/DL (70-104)
[2021-03-31 22:00] VITALS: BP 112/64
--- NOTE | 2021-03-31 23:06 | NUR ---
Spoke with MD (Dr. Galvez) about patients Med Rec. per MD, Famotidine 20mg, Synthroid 25MCG and Lidoderm patch to be continued.
[2021-03-31 23:51] LABS: CLARITY,URINE CLEAR (Clear); COLOR,URINE YELLOW (Yellow); GLUCOSE, URINE NEGATIVE (Neg); KETONES,URINE NEGATIVE (Neg); LEUKOCYTE ESTERASE ,URINE NEGATIVE (Neg); NITRITES, URINE NEGATIVE (Neg); OCCULT BLOOD,URINE NEGATIVE (Neg); PROTEIN,URINE NEGATIVE (Neg); UROBILINOGEN,URINE 0.2 E.U/dL (0.2-1.0)
[2021-04-01] VITALS (12 sets, daily range): BP systolic 108–141; BP diastolic 41–70
[2021-04-01 00:05] LABS: UA COLLECTION TYPE CLN CATCH MIDSTREAM
[2021-04-01] MEDS ORDERED: nystatin 15 GM powder TP ONE (02:25)
[2021-04-01] MEDS: HYDROcodone/acetaminophen 5mg/325mg tablet PO PRN ×2 (02:34→21:12)
--- NOTE | 2021-04-01 06:26 | NUR ---
Problems reprioritized. Patient report given, questions answered & plan of care reviewed with Stephanie SANCHEZ.
[2021-04-01] MEDS ORDERED: cyclobenzaprine 10mg tablet PO PRN (07:15)
[2021-04-01] MEDS ORDERED: ipratropium/albuterol 3ml nebule IH PRN (07:20)
[2021-04-01] MEDS ORDERED: enoxaparin 40mg/0.4ml syringe SUBCUT SCH (08:00)
[2021-04-01] MEDS ORDERED: nystatin 15 GM powder TP SCH (08:00)
[2021-04-01] MEDS ORDERED: apixaban 5mg tablet PO SCH (08:00)
[2021-04-01] MEDS: nystatin 15 GM powder TP SCH ×2 (08:00→20:00)
[2021-04-01] MEDS: famotidine 20mg tablet PO SCH ×2 (08:12→20:00)
[2021-04-01] MEDS: levoTHYROXINE 25mcg tablet PO SCH (08:12)
[2021-04-01] MEDS: LIDOcaine 5% patch TP SCH (08:13)
[2021-04-01] MEDS: furosemide 20 MG/2 ML vial IV SCH ×3 (08:14→21:12)
[2021-04-01 08:15] LABS: BASOPHILS % (AUTO) 0.6 % (0-1); EOSINOPHILS # (AUTO) 0.1 X10'3 (0-0.9); EOSINOPHILS % (AUTO) 2.2 % (0-6); HEMATOCRIT 33.6 % (35.0-45.0); HEMOGLOBIN 10.7 g/dl (12.0-16.0); LYMPHOCYTES # (AUTO) 0.9 X10'3 (1.1-4.8); LYMPHOCYTES % (AUTO) 20.8 % (21-51); MEAN CORPUSCULAR HEMOGLOBIN 28.2 PG (27.0-31.0); MEAN CORPUSCULAR HGB CONC 31.8 g/dL (33.0-36.5); MEAN CORPUSCULAR VOLUME 88.5 FL (78-98); MEAN PLATELET VOLUME 10.9 FL (7.4-10.4); MONOCYTES # (AUTO) 0.4 X10'3 (0-0.9); MONOCYTES % (AUTO) 9.9 % (2-12); NEUTROPHILS # (AUTO) 2.8 X10'3 (1.8-7.7); NEUTROPHILS % (AUTO) 66.5 % (42-75); PLATELET COUNT 150 X10'3 (140-440); RED CELL DISTRIBUTION WIDTH 15.8 % (11.5-14.5); WHITE BLOOD COUNT 4.2 X10'3 (4.5-11.0)
[2021-04-01 09:03] LABS: ALBUMIN 2.9 G/DL (3.4-5.0); ANION GAP 9 (8-16); BLOOD UREA NITROGEN 65 MG/DL (7-18); BUN/CREATININE RATIO 24.8 (6.6-38.0); CALCIUM 8.3 MG/DL (8.5-10.1); CHLORIDE 104 MMOL/L (99-107); CREATININE 2.62 MG/DL (0.40-0.90); POTASSIUM 4.5 MMOL/L (3.5-5.1); SODIUM 144 MMOL/L (135-145); TOTAL CARBON DIOXIDE 31.4 MMOL/L (24-32); eGFR 19 ML/MIN
--- NOTE | 2021-04-01 09:21 | NUR ---
Page Sent promotional table spacer PAGER ID: [phone] MESSAGE: [id number] Meng. BAKARI complete and in the chart. Stephanie [phone]
[2021-04-01 09:26] LABS: GLUCOSE 84 MG/DL (70-104)
[2021-04-01 11:08] LABS: LARGE PLATELETS FEW; PLATELET ESTIMATE NORMAL
[2021-04-01] MEDS ORDERED: fentaNYL/PF 50MCG/1 ML 2ML syringe ONE (16:25)
[2021-04-01] MEDS ORDERED: ceFAZolin 1000mg inj ONE (16:25)
[2021-04-01] MEDS ORDERED: midazolam 1 mg/ML 2ml injection ONE (16:25)
[2021-04-01] MEDS ORDERED: LIDOcaine 1% W/epiNEPHrine 1:100,000 20ml vial ONE ×2 (16:25→17:06)
[2021-04-01] MEDS ORDERED: vancomycin 1,000mg inj ONE (16:28)
[2021-04-01] MEDS ORDERED: clindamycin 600mg/D5W 50ml 50 ML IV ONE (17:05)
--- NOTE | 2021-04-01 18:00 | NUR ---
Patient in room PCU 3013. I have received report from giovanny santana and had the opportunity to ask questions and assume patient care.
--- NOTE | 2021-04-01 18:10 | NUR ---
Problems reprioritized. Patient report given, questions answered & plan of care reviewed with Maureen SANCHEZ. Patient just returned from analytical lab technician, vitals stable, sensation intact.
[2021-04-01] MEDS: vancomycin/NS 1 GM ADD-VANTAGE 250 ML IV SCH (20:00)
[2021-04-01] MEDS: amitriptyline 10mg tablet PO SCH (21:08)
[2021-04-02 02:00] VITALS: BP 113/66
[2021-04-02] MEDS: HYDROcodone/acetaminophen 5mg/325mg tablet PO PRN (04:20)
--- NOTE | 2021-04-02 06:07 | NUR ---
Problems reprioritized. Patient report given, questions answered & plan of care reviewed with Stephanie SANCHEZ.
[2021-04-02 06:48] LABS: BASOPHILS % (AUTO) 0.6 % (0-1); EOSINOPHILS # (AUTO) 0.1 X10'3 (0-0.9); EOSINOPHILS % (AUTO) 1.9 % (0-6); HEMATOCRIT 31.9 % (35.0-45.0); HEMOGLOBIN 10.3 g/dl (12.0-16.0); LYMPHOCYTES # (AUTO) 0.6 X10'3 (1.1-4.8); LYMPHOCYTES % (AUTO) 15.2 % (21-51); MEAN CORPUSCULAR HEMOGLOBIN 28.3 PG (27.0-31.0); MEAN CORPUSCULAR HGB CONC 32.3 g/dL (33.0-36.5); MEAN CORPUSCULAR VOLUME 87.6 FL (78-98); MEAN PLATELET VOLUME 10.4 FL (7.4-10.4); MONOCYTES # (AUTO) 0.4 X10'3 (0-0.9); MONOCYTES % (AUTO) 8.9 % (2-12); NEUTROPHILS % (AUTO) 73.4 % (42-75); PLATELET COUNT 146 X10'3 (140-440); RED BLOOD COUNT 3.64 X10'6 (4.20-5.60); RED CELL DISTRIBUTION WIDTH 15.7 % (11.5-14.5); WHITE BLOOD COUNT 4.1 X10'3 (4.5-11.0)
--- NOTE | 2021-04-02 06:52 | NUR ---
Patient in room U 3013. I have received report from Maureen SANCHEZ and had the opportunity to ask questions and assume patient care. Patient sleeping in bed in no acute distress
[2021-04-02 06:56] LABS: ALBUMIN 2.8 G/DL (3.4-5.0); ANION GAP 7 (8-16); BLOOD UREA NITROGEN 62 MG/DL (7-18); BUN/CREATININE RATIO 25.2 (6.6-38.0); CALCIUM 8.3 MG/DL (8.5-10.1); CHLORIDE 107 MMOL/L (99-107); CREATININE 2.46 MG/DL (0.40-0.90); GLUCOSE 90 MG/DL (70-104); POTASSIUM 4.4 MMOL/L (3.5-5.1); SODIUM 145 MMOL/L (135-145); TOTAL CARBON DIOXIDE 30.7 MMOL/L (24-32); eGFR 20 ML/MIN
[2021-04-02 07:00] VITALS: BP 113/74
[2021-04-02] MEDS: vancomycin/NS 1 GM ADD-VANTAGE 250 ML IV SCH (08:15)
[2021-04-02] MEDS: nystatin 15 GM powder TP SCH ×2 (08:15→20:00)
[2021-04-02] MEDS: famotidine 20mg tablet PO SCH ×2 (08:16→19:24)
[2021-04-02] MEDS: LIDOcaine 5% patch TP SCH (08:16)
[2021-04-02] MEDS: levoTHYROXINE 25mcg tablet PO SCH (08:16)
[2021-04-02 11:00] VITALS: BP 108/61
--- NOTE | 2021-04-02 11:14 | NUR ---
Patient fell when getting out of bed at shift change this morning. he hit his head on the trash can and there is a reddened area on the right forehead. He otherwise appears undamaged. vitals stable HR 80, BP 151/98, 95% RA. he has no other complaints at this time. Dr. Galvez was notified and a CT of the head was ordered and came negative for bleeding and breaks. Will continue to monitor
[2021-04-02] MEDS: HYDROcodone/acetaminophen 10/325mg tab PO PRN ×3 (13:47→23:50)
[2021-04-02 15:00] VITALS: BP 103/59
[2021-04-02] MEDS: DOXYCYCLINE 100MG CAPSULE PO SCH (17:23)
[2021-04-02 18:00] VITALS: BP 99/38
--- NOTE | 2021-04-02 18:00 | NUR ---
Patient in room PCU 3013. I have received report from Stephanie SANCHEZ and had the opportunity to ask questions and assume patient care.
--- NOTE | 2021-04-02 18:27 | NUR ---
Problems reprioritized. Patient report given, questions answered & plan of care reviewed with Maureen Bellamy.
[2021-04-02] MEDS: amitriptyline 10mg tablet PO SCH (19:23)
[2021-04-02] MEDS: furosemide 20 MG/2 ML vial IV SCH (19:23)
[2021-04-02] MEDS: apixaban 5mg tablet PO SCH (19:24)
[2021-04-02 22:00] VITALS: BP 107/52
[2021-04-03 02:00] VITALS: BP 117/69
[2021-04-03 06:00] VITALS: BP 124/76
--- NOTE | 2021-04-03 06:40 | NUR ---
Problems reprioritized. Patient report given, questions answered & plan of care reviewed with Jaki SANCHEZ.
--- NOTE | 2021-04-03 06:58 | NUR ---
Patient in room PCU 3013. I have received report from Maureen SANCHEZ and had the opportunity to ask questions and assume patient care.
[2021-04-03] MEDS: apixaban 5mg tablet PO SCH ×2 (07:33→20:16)
[2021-04-03] MEDS: levoTHYROXINE 25mcg tablet PO SCH (07:33)
[2021-04-03] MEDS: HYDROcodone/acetaminophen 10/325mg tab PO PRN ×3 (07:35→17:31)
[2021-04-03] MEDS: famotidine 20mg tablet PO SCH ×2 (07:35→20:16)
[2021-04-03] MEDS: LIDOcaine 5% patch TP SCH (07:39)
[2021-04-03] MEDS: nystatin 15 GM powder TP SCH ×2 (07:43→20:16)
[2021-04-03] MEDS: DOXYCYCLINE 100MG CAPSULE PO SCH ×2 (07:46→17:10)
[2021-04-03 09:36] LABS: BASOPHILS % (AUTO) 0.6 % (0-1); EOSINOPHILS # (AUTO) 0.1 X10'3 (0-0.9); EOSINOPHILS % (AUTO) 2.4 % (0-6); HEMATOCRIT 34.4 % (35.0-45.0); HEMOGLOBIN 10.9 g/dl (12.0-16.0); LYMPHOCYTES # (AUTO) 0.7 X10'3 (1.1-4.8); LYMPHOCYTES % (AUTO) 14.1 % (21-51); MEAN CORPUSCULAR HGB CONC 31.8 g/dL (33.0-36.5); MEAN CORPUSCULAR VOLUME 88.1 FL (78-98); MONOCYTES # (AUTO) 0.4 X10'3 (0-0.9); MONOCYTES % (AUTO) 7.9 % (2-12); NEUTROPHILS # (AUTO) 3.9 X10'3 (1.8-7.7); PLATELET COUNT 139 X10'3 (140-440); RED CELL DISTRIBUTION WIDTH 15.8 % (11.5-14.5); WHITE BLOOD COUNT 5.2 X10'3 (4.5-11.0)
[2021-04-03] MEDS ORDERED: vitamin A & D ointment-NF 1 APPLIC TUBE TP SCH (09:45)
[2021-04-03 10:06] LABS: ANION GAP 4 (8-16); BLOOD UREA NITROGEN 52 MG/DL (7-18); CALCIUM 8.6 MG/DL (8.5-10.1); CHLORIDE 105 MMOL/L (99-107); CREATININE 2.17 MG/DL (0.40-0.90); POTASSIUM 4.4 MMOL/L (3.5-5.1); SODIUM 143 MMOL/L (135-145); TOTAL CARBON DIOXIDE 33.7 MMOL/L (24-32); eGFR 23 ML/MIN
[2021-04-03 10:16] LABS: GLUCOSE 92 MG/DL (70-104)
[2021-04-03 11:00] VITALS: BP 111/76
[2021-04-03 15:00] VITALS: BP 109/66
--- NOTE | 2021-04-03 18:18 | NUR ---
Problems reprioritized. Patient report given, questions answered & plan of care reviewed with Edita SANCHEZ.
--- NOTE | 2021-04-03 18:30 | NUR ---
Patient in room PCU 3013. I have received report from LAURA Pollack and had the opportunity to ask questions and assume patient care.
[2021-04-03 19:00] VITALS: BP 109/59
[2021-04-03] MEDS: lactobacillus rhamnosus 10,000 MMU CELLS/CAPSULE PO SCH (20:16)
[2021-04-03] MEDS: furosemide 20 MG/2 ML vial IV SCH (20:16)
[2021-04-03] MEDS: amitriptyline 10mg tablet PO SCH (20:16)
[2021-04-03 23:00] VITALS: BP 117/69
[2021-04-04 03:00] VITALS: BP 103/60
[2021-04-04] MEDS: HYDROcodone/acetaminophen 10/325mg tab PO PRN ×3 (05:53→16:18)
[2021-04-04 06:00] VITALS: BP 114/65
--- NOTE | 2021-04-04 06:18 | NUR ---
Problems reprioritized. Patient report given, questions answered & plan of care reviewed with LAURA Mehta.
[2021-04-04 07:58] LABS: BASOPHILS % (AUTO) 0.5 % (0-1); EOSINOPHILS # (AUTO) 0.1 X10'3 (0-0.9); HEMATOCRIT 33.6 % (35.0-45.0); HEMOGLOBIN 10.8 g/dl (12.0-16.0); LYMPHOCYTES # (AUTO) 0.7 X10'3 (1.1-4.8); LYMPHOCYTES % (AUTO) 12.7 % (21-51); MEAN CORPUSCULAR HEMOGLOBIN 28.3 PG (27.0-31.0); MEAN CORPUSCULAR HGB CONC 32.2 g/dL (33.0-36.5); MEAN CORPUSCULAR VOLUME 87.9 FL (78-98); MONOCYTES # (AUTO) 0.5 X10'3 (0-0.9); MONOCYTES % (AUTO) 9.5 % (2-12); NEUTROPHILS # (AUTO) 3.9 X10'3 (1.8-7.7); NEUTROPHILS % (AUTO) 75.3 % (42-75); PLATELET COUNT 140 X10'3 (140-440); RED BLOOD COUNT 3.83 X10'6 (4.20-5.60); RED CELL DISTRIBUTION WIDTH 15.8 % (11.5-14.5); WHITE BLOOD COUNT 5.2 X10'3 (4.5-11.0)
[2021-04-04] MEDS: levoTHYROXINE 25mcg tablet PO SCH (08:03)
[2021-04-04] MEDS: DOXYCYCLINE 100MG CAPSULE PO SCH (08:03)
[2021-04-04] MEDS: apixaban 5mg tablet PO SCH (08:03)
[2021-04-04] MEDS: famotidine 20mg tablet PO SCH (08:03)
[2021-04-04] MEDS: lactobacillus rhamnosus 10,000 MMU CELLS/CAPSULE PO SCH (08:03)
[2021-04-04] MEDS: furosemide 20 MG/2 ML vial IV SCH (08:04)
[2021-04-04] MEDS: nystatin 15 GM powder TP SCH (08:04)
[2021-04-04] MEDS: LIDOcaine 5% patch TP SCH (08:04)
[2021-04-04 08:13] LABS: ALBUMIN 2.8 G/DL (3.4-5.0); ANION GAP 7 (8-16); BLOOD UREA NITROGEN 50 MG/DL (7-18); CALCIUM 8.4 MG/DL (8.5-10.1); CHLORIDE 105 MMOL/L (99-107); CREATININE 2.08 MG/DL (0.40-0.90); POTASSIUM 4.7 MMOL/L (3.5-5.1); SODIUM 144 MMOL/L (135-145); TOTAL CARBON DIOXIDE 32.1 MMOL/L (24-32); eGFR 24 ML/MIN
[2021-04-04 08:14] LABS: GLUCOSE 91 MG/DL (70-104)
--- NOTE | 2021-04-04 10:23 | NUR ---
no reply from md shore on lasix change orders. pt says" i won't take it anyhow, its a long ride home and i don't want to pee."
--- NOTE | 2021-04-04 11:09 | NUR ---
124/76, 69, 92% 4L nc. transfer just held per Lauryn CM, awaiting disch summary
--- NOTE | 2021-04-04 16:30 | NUR ---
pt transfer via transport to [place], a/ox3, up to [facility] with standby, amb well, steady, deny sob, L arm in sling and pacer site stable, void 250 before leaving. vss 109/71, 70, 12, 97.8, 94%2L
== END 2021-04-04 16:43 | DRG 194 ==
LOC: PCU 3S 14:27 → UNDOADMIN 14:27 → PCU 3S 17:18
PROVIDERS: ADMIT Family Medicine; ATTEND Family Medicine
PROC: 5A0935A Assistance with Respiratory Ventilation, Less than 24 Consecutive Hours, High Flow/Velocity Cannula (ICD-10-PCS; 2021-03-31)
PROC: 4B02XSZ Measurement of Cardiac Pacemaker, External Approach (ICD-10-PCS; principal; 2021-04-03)
DX: I13.0 Hypertensive heart and chronic kidney disease with heart failure and stage 1 through stage 4 chronic kidney disease, or unspecified chronic kidney disease (principal); J96.11 Chronic respiratory failure with hypoxia; I27.29 Other secondary pulmonary hypertension; N17.9 Acute kidney failure, unspecified; I49.5 Sick sinus syndrome; E66.01 Morbid (severe) obesity due to excess calories; N18.30 Chronic kidney disease, stage 3 unspecified; I48.91 Unspecified atrial fibrillation; I50.813 Acute on chronic right heart failure; J44.9 Chronic obstructive pulmonary disease, unspecified; Z79.01 Long term (current) use of anticoagulants; Z79.899 Other long term (current) drug therapy; Z86.711 Personal history of pulmonary embolism; Z87.01 Personal history of pneumonia (recurrent); Z87.891 Personal history of nicotine dependence; Z90.710 Acquired absence of both cervix and uterus; Z95.0 Presence of cardiac pacemaker
CPT/HCPCS: 33207; 36415; 71045; 80048; 81003; 83880; 84443; 85008; 85025; 87081; 93005; 93306; 94760; 97116; 97162; 97530; 99152; 99153; A4620; A6258; C1786; C1898; G0378; J0690; J1940; J2250; J3010; J3370; J3490

== ENCOUNTER 2022-01-21 15:00 | Inpatient (IN) | payer MEDICAID ==
[~2022-01-21] VITALS: Ht 177.8 cm; Wt 96.4 kg
[2022-01-21] VITALS (11 sets, daily range): BP systolic 116–155; BP diastolic 73–92
[~2022-01-21 15:00] MED LIST changes: +AMIT10TA6 PO; -DIAZ5TAB4 PO; -DIPH50TA15 PO; -FAMO20TA8 PO; +FAMO20TA82 PO; -FURO-150 PO; -LACT-228 PO; +LEVO25TA7 PO; +LEVO500T90 PO; +LIDO700A32 TOP; -LINE600T14 PO; -NICO-631 TD; -OXYGEN; -POTA8TAB8 PO; +SODI30SP3 BOTHNARES; +TIOT18CA3 IH; -[UNRECOGNIZED DRUG - OTHER]
[2022-01-21] MEDS ORDERED: FENTANYL-0.9 % NACL/PF 100 ML IV PRN (16:55)
--- NOTE | 2022-01-21 17:26 | NUR ---
Pt. to room 2045 via air crew on [employer] at 1700. Hooked up to monitor. Dr. Waters at bedside. Pt. follows commands. VSS.
[2022-01-21] MEDS: propofol 1000mg/100ml bottle 100 ML IV SCH (17:39)
[2022-01-21 17:43] LABS: ABG BASE EXCESS -4.7 mmol/L (-2.0-2.0); ABG HCO3 22.3 mmol/L (22.0-26.0); ABG OXYGEN SATURATION 93.6 % (94-97); ABG PCO2 (T) 49.1 mmHg (32.0-45.0); ABG PO2 (T) 67.7 mmHg (75.0-100.0); ALLEN'S TEST POSITIVE; FCOHb 0.1 % (0.0-3.9); FMetHb 0.2 % (0.0-1.5); FO2Hb 93.3 % (94-97); PEEP 8 cm H2O; RESPIRATORY RATE 16 b/min; TIDAL VOLUME 450 mL; TOTAL HEMOGLOBIN 12.3 G/dl (12.0-16.0)
--- NOTE | 2022-01-21 17:46 | NUR ---
CXR, ABG and labs obtained. OGT placement confirmed. Propofol and Fentanyl infusing.
[2022-01-21] MEDS ORDERED: magnesium 4gm in 100ml NS 100 ML IV PRN (18:05)
[2022-01-21] MEDS ORDERED: mag hydrox/Alum hydrox/simeth 30ml oral suspension PO PRN (18:05)
[2022-01-21] MEDS ORDERED: magnesium Cl slow-release 64mg tablet PO PRN (18:05)
[2022-01-21] MEDS ORDERED: magnesium hydroxide 30ml (MOM) UD suspension PO PRN (18:05)
[2022-01-21] MEDS ORDERED: magnesium 2GM in 50ml NS 50 ML IV PRN (18:05)
--- NOTE | 2022-01-21 18:11 | NUR ---
Problems reprioritized. Patient report given, questions answered & plan of care reviewed with Darek SANCHEZ.
[2022-01-21 18:13] LABS: BASOPHILS % (AUTO) 0.2 % (0-1); EOSINOPHILS # (AUTO) 0.1 X10'3 (0-0.9); EOSINOPHILS % (AUTO) 1.3 % (0-6); HEMATOCRIT 34.9 % (35.0-45.0); HEMOGLOBIN 11.1 g/dl (12.0-16.0); LYMPHOCYTES # (AUTO) 0.4 X10'3 (1.1-4.8); LYMPHOCYTES % (AUTO) 6.5 % (21-51); MEAN CORPUSCULAR HEMOGLOBIN 28.4 PG (27.0-31.0); MEAN CORPUSCULAR HGB CONC 31.7 g/dL (33.0-36.5); MEAN CORPUSCULAR VOLUME 89.5 FL (78-98); MEAN PLATELET VOLUME 9.2 FL (7.4-10.4); MONOCYTES % (AUTO) 16.4 % (2-12); NEUTROPHILS # (AUTO) 4.8 X10'3 (1.8-7.7); NEUTROPHILS % (AUTO) 75.6 % (42-75); PLATELET COUNT 169 X10'3 (140-440); RED CELL DISTRIBUTION WIDTH 15.4 % (11.5-14.5); WHITE BLOOD COUNT 6.3 X10'3 (4.5-11.0)
--- NOTE | 2022-01-21 18:20 | NUR ---
Patient in room ICU 2045. I have received report from Martha SANCHEZ and had the opportunity to ask questions and assume patient care.
[2022-01-21 18:29] LABS: ALANINE AMINOTRANSFERASE 23 U/L (12-78); ALBUMIN 2.8 G/DL (3.4-5.0); ALBUMIN/GLOBULIN RATIO 0.5 (1.1-1.5); ALKALINE PHOSPHATASE 93 IU/L (46-116); ANION GAP 11 (8-16); ASPARTATE AMINO TRANSFERASE 20 U/L (10-37); BILIRUBIN,TOTAL 0.8 MG/DL (0.1-1.0); BLOOD UREA NITROGEN 66 MG/DL (7-18); BUN/CREATININE RATIO 23.6 (6.6-38.0); CALCIUM 8.9 MG/DL (8.5-10.1); CHLORIDE 102 MMOL/L (99-107); GLUCOSE 128 MG/DL (70-104); POTASSIUM 4.1 MMOL/L (3.5-5.1); SODIUM 139 MMOL/L (135-145); TOTAL CARBON DIOXIDE 25.9 MMOL/L (24-32); TOTAL PROTEIN 8.1 G/DL (6.4-8.2); TRIGLYCERIDES 115 MG/DL (20-135); eGFR 17 ML/MIN
[2022-01-21 18:54] LABS: MAGNESIUM 2.4 MG/DL (1.5-2.4); PHOSPHORUS 4.3 MG/DL (2.3-4.5)
[2022-01-21 18:56] LABS: HEMOGLOBIN A1C 5.3 % (4.5-6.2)
[2022-01-21] MEDS: K and/or MAG REPLACEMENT MC SCH (19:01)
[2022-01-21 19:16] LABS: PLATELET ESTIMATE NORMAL; TOTAL CELLS COUNTED 100
--- NOTE | 2022-01-21 19:45 | NUR ---
PT is resting with no s/s of distress noted at this time. VSS. PT is intubated and being mechanically vented and tolerated settings well with O2 sat > 95%. PT is receiving Fentanyl and Propofol in low dose for sedation. Pt wakes up easily to voice and follows commands. PT has large, edematous lower extremities that are dry, scaly and flaky. Pictures have been taken and placed in PT chart. PT had and ETT securement device from other facility, RT made aware of it pressing into the right side of Face/lip and has been changed. There were some ervin and indentations made by the ETT faustin, pictures were taken and place din PT's chart. Chan in place draining clear yellow urine to gravity. PM personal hygiene performed and PT turned for skin check, Buttock is reddened but blanchable, Picture taken and placed in chart. Bilat soft wrist restraints in place and secure. Bed is locked and low. Will continue to monitor.
[2022-01-21] MEDS: docusate sod 100mg capsule PO SCH (20:00)
--- NOTE | 2022-01-21 20:18 | NUR ---
Call to Pharmacy to verify length of time for Nitro patch placement. PT was a transfer from outside facility and had a Nitro Patch that was placed to Left chest. Pharmacy stated they wear for 12 hrs and off for 12 hrs. Patch has been removed and will continue to monitor.
--- NOTE | 2022-01-21 23:20 | NUR ---
FiO2 decreased from 60-55%. O2 Sat has been >96%. Will continue to monitor.
[2022-01-22] VITALS (30 sets, daily range): BP systolic 114–139; BP diastolic 69–85
--- NOTE | 2022-01-22 02:15 | NUR ---
FiO2 decreased from 55% to 50%%. O2 Sat has been >96%. Will continue to monitor.
[2022-01-22 03:35] LABS: ABG BASE EXCESS -1.8 mmol/L (-2.0-2.0); ABG HCO3 23.5 mmol/L (22.0-26.0); ABG OXYGEN SATURATION 96.3 % (94-97); ABG PCO2 (T) 41.9 mmHg (32.0-45.0); ABG PO2 (T) 82.3 mmHg (75.0-100.0); ALLEN'S TEST POSITIVE; FCOHb 0.3 % (0.0-3.9); FMetHb 0.2 % (0.0-1.5); FO2Hb 95.8 % (94-97); PATIENT TEMPERATURE 36.8; PEEP 8 cm H2O; RESPIRATORY RATE 16 b/min; TIDAL VOLUME 450 mL; TOTAL HEMOGLOBIN 11.4 G/dl (12.0-16.0)
--- NOTE | 2022-01-22 06:30 | NUR ---
Problems reprioritized. Patient report given, questions answered & plan of care reviewed with Carmela SANCHEZ.
[2022-01-22 06:47] LABS: BASOPHILS % (AUTO) 0.3 % (0-1); EOSINOPHILS # (AUTO) 0.1 X10'3 (0-0.9); HEMATOCRIT 30.8 % (35.0-45.0); LYMPHOCYTES # (AUTO) 0.4 X10'3 (1.1-4.8); LYMPHOCYTES % (AUTO) 8.4 % (21-51); MEAN CORPUSCULAR HEMOGLOBIN 28.7 PG (27.0-31.0); MEAN CORPUSCULAR HGB CONC 32.6 g/dL (33.0-36.5); MEAN CORPUSCULAR VOLUME 88.2 FL (78-98); MEAN PLATELET VOLUME 9.2 FL (7.4-10.4); MONOCYTES # (AUTO) 0.9 X10'3 (0-0.9); MONOCYTES % (AUTO) 16.8 % (2-12); NEUTROPHILS # (AUTO) 3.8 X10'3 (1.8-7.7); NEUTROPHILS % (AUTO) 72.5 % (42-75); PLATELET COUNT 156 X10'3 (140-440); RED CELL DISTRIBUTION WIDTH 15.3 % (11.5-14.5); WHITE BLOOD COUNT 5.2 X10'3 (4.5-11.0)
[2022-01-22 06:54] LABS: ALANINE AMINOTRANSFERASE 21 U/L (12-78); ALBUMIN 2.5 G/DL (3.4-5.0); ALBUMIN/GLOBULIN RATIO 0.6 (1.1-1.5); ALKALINE PHOSPHATASE 83 IU/L (46-116); ANION GAP 13 (8-16); ASPARTATE AMINO TRANSFERASE 22 U/L (10-37); BILIRUBIN,TOTAL 0.8 MG/DL (0.1-1.0); BLOOD UREA NITROGEN 65 MG/DL (7-18); BUN/CREATININE RATIO 24.4 (6.6-38.0); CALCIUM 8.8 MG/DL (8.5-10.1); CHLORIDE 105 MMOL/L (99-107); CHOL/HDL RATIO 3.7 (0.00-4.99); CHOLESTEROL 142 MG/DL (0-200); CREATININE 2.66 MG/DL (0.40-0.90); GLUCOSE 90 MG/DL (70-104); HDL CHOLESTEROL 38 MG/DL (35-60); LDL CHOLESTEROL 87 MG/DL (50-100); POTASSIUM 3.7 MMOL/L (3.5-5.1); SODIUM 142 MMOL/L (135-145); TRIGLYCERIDES 108 MG/DL (20-135); eGFR 18 ML/MIN
[2022-01-22] MEDS: apixaban 5mg tablet PO SCH ×2 (07:52→20:55)
[2022-01-22] MEDS: docusate sod 100mg capsule PO SCH ×2 (07:52→20:55)
[2022-01-22] MEDS ORDERED: famotidine/PF 10 mg/ml inj IV SCH (08:00)
[2022-01-22] MEDS: K and/or MAG REPLACEMENT MC SCH ×2 (08:00→20:00)
--- NOTE | 2022-01-22 09:40 | NUR ---
PATIENT MONEY AND CREDIT CARDS SENT DOWN TO BE STORED IN SAFE.
[2022-01-22] MEDS: ondansetron/PF 4mg/2ml inj IV PRN (10:35)
--- NOTE | 2022-01-22 11:33 | NUR ---
Initial: Pt admit for acute on chronic hypoxemic and hypercapnic respiratory failure with acute CHF and BLE cellulitis. Wound care has been consulted and per RN at critical care rounds wound care has assessed patient, pending note at this time. Pt intubated, documented with an OGT in place though no TF consult at this time. Will place TF recommendations below for if expected prolonged intubation and to receive nutrition support. Noted pt with Propofol on med list however visualized at bedside to not be running. No documented BM, pt receiving routine bowel care. Will continue to follow closely and make recommendations as appropriate. Recommendations: 1) IF TF, continuous Vital High Protein via OGT with 70 mL/hr goal rate. Initiate at 30 mL/hr and advance by 20 mL Q8H as tolerated to goal. To provide 1680 mL total volume/day, 1680 kcal, 147 g protein, and 1405 mL water 2) IF TF, monitor Propofol rate and adjust TF recs as appropriate 3) IF TF, additional water flush per MD 4) IF TF, prealbumin q Thursday/; daily scaled weights 5) Routine bowel care 6) Advance to regular diet as medically indicated following extubation; lipid panel WNL Addendum: 01/22/22 at [address] Amended: Links added.
[2022-01-22] MEDS ORDERED: LEVO25TA7 PO (11:36)
[2022-01-22] MEDS ORDERED: FURO20TA4 PO (11:36)
[2022-01-22] MEDS: furosemide 40mg/4ml inj IV SCH ×2 (12:11→20:55)
[2022-01-22 14:45] LABS: ABG BASE EXCESS -3.9 mmol/L (-2.0-2.0); ABG HCO3 22.9 mmol/L (22.0-26.0); ABG OXYGEN SATURATION 95.1 % (94-97); ABG PCO2 (T) 46.7 mmHg (32.0-45.0); ABG PO2 (T) 76.5 mmHg (75.0-100.0); ALLEN'S TEST POSITIVE; FCOHb 0.3 % (0.0-3.9); FMetHb 0.2 % (0.0-1.5); FO2Hb 94.6 % (94-97); PATIENT TEMPERATURE 36.2; PEEP 5 cm H2O; TIDAL VOLUME 468 mL; TOTAL HEMOGLOBIN 12.5 G/dl (12.0-16.0)
--- NOTE | 2022-01-22 15:04 | NUR ---
PATIENT EXTUBATED AT 1455
[2022-01-22 16:40] LABS: CLARITY,URINE SLIGHTLY CLOUDY (Clear); COLOR,URINE YELLOW (Yellow); GLUCOSE, URINE NEGATIVE (Neg); KETONES,URINE NEGATIVE (Neg); LEUKOCYTE ESTERASE ,URINE NEGATIVE (Neg); NITRITES, URINE NEGATIVE (Neg); OCCULT BLOOD,URINE TRACE-INTACT (Neg); PH,URINE 5.5 (4.8-8.0); PROTEIN,URINE NEGATIVE (Neg); UROBILINOGEN,URINE 0.2 E.U/dL (0.2-1.0)
[2022-01-22 16:51] LABS: HYALINE CASTS 0-3 /LPF (NEGATIVE); MUCUS STRANDS FEW /LPF (Neg); SQUAMOUS EPITHELIAL CELL,UR FEW /LPF (FEW); UA COLLECTION TYPE NON-SPECIFIED
[2022-01-22 16:52] LABS: BACTERIA,URINE FEW /HPF (Neg); RBC,URINE 0-2 /HPF (0-2); WBC,URINE 0-4 /HPF (0-4)
[2022-01-22] MEDS ORDERED: apixaban 5mg tablet PO SCH (20:00)
[2022-01-23] VITALS (35 sets, daily range): BP systolic 122–153; BP diastolic 74–89
[2022-01-23] MEDS: propofol 1000mg/100ml bottle 100 ML IV SCH (02:00)
[2022-01-23 06:30] LABS: BASOPHILS % (AUTO) 0.6 % (0-1); EOSINOPHILS # (AUTO) 0.2 X10'3 (0-0.9); EOSINOPHILS % (AUTO) 2.3 % (0-6); HEMATOCRIT 36.8 % (35.0-45.0); HEMOGLOBIN 11.9 g/dl (12.0-16.0); LYMPHOCYTES # (AUTO) 0.6 X10'3 (1.1-4.8); LYMPHOCYTES % (AUTO) 8.3 % (21-51); MEAN CORPUSCULAR HEMOGLOBIN 28.5 PG (27.0-31.0); MEAN CORPUSCULAR HGB CONC 32.4 g/dL (33.0-36.5); MEAN CORPUSCULAR VOLUME 88.2 FL (78-98); MEAN PLATELET VOLUME 8.9 FL (7.4-10.4); MONOCYTES # (AUTO) 0.8 X10'3 (0-0.9); MONOCYTES % (AUTO) 12.3 % (2-12); NEUTROPHILS # (AUTO) 5.2 X10'3 (1.8-7.7); NEUTROPHILS % (AUTO) 76.5 % (42-75); PLATELET COUNT 182 X10'3 (140-440); RED BLOOD COUNT 4.17 X10'6 (4.20-5.60); RED CELL DISTRIBUTION WIDTH 15.2 % (11.5-14.5); WHITE BLOOD COUNT 6.7 X10'3 (4.5-11.0)
[2022-01-23 07:29] LABS: ALBUMIN 2.8 G/DL (3.4-5.0); ANION GAP 12 (8-16); BLOOD UREA NITROGEN 61 MG/DL (7-18); BUN/CREATININE RATIO 22.8 (6.6-38.0); CALCIUM 9.1 MG/DL (8.5-10.1); CHLORIDE 106 MMOL/L (99-107); CREATININE 2.68 MG/DL (0.40-0.90); GLUCOSE 87 MG/DL (70-104); POTASSIUM 3.5 MMOL/L (3.5-5.1); SODIUM 147 MMOL/L (135-145); TOTAL CARBON DIOXIDE 29.1 MMOL/L (24-32); eGFR 18 ML/MIN
[2022-01-23] MEDS: K and/or MAG REPLACEMENT MC SCH ×2 (08:00→20:44)
[2022-01-23] MEDS: docusate sod 100mg capsule PO SCH ×2 (08:21→20:43)
[2022-01-23] MEDS: furosemide 40mg/4ml inj IV SCH ×2 (08:21→20:44)
[2022-01-23] MEDS: levoTHYROXINE 25mcg tablet PO SCH (08:21)
[2022-01-23] MEDS: pantoprazole 40MG/NS 100ML BAG 100 ML IV SCH (08:21)
[2022-01-23] MEDS: apixaban 5mg tablet PO SCH ×2 (08:21→20:43)
[2022-01-23] MEDS ORDERED: magnesium 2GM in 50ml NS 50 ML IV PRN (11:35)
[2022-01-23] MEDS ORDERED: potassium Cl 20 mEq SR tablet PO PRN (11:35)
[2022-01-23] MEDS ORDERED: potassium Cl 40MEQ/1/2NS 520ml 520 ML IV PRN (11:35)
[2022-01-23] MEDS ORDERED: magnesium 4gm in 100ml NS 100 ML IV PRN (11:35)
[2022-01-23] MEDS ORDERED: magnesium Cl slow-release 64mg tablet PO PRN (11:35)
--- NOTE | 2022-01-23 12:00 | NUR ---
F/u 01/23: Pt extubated yesterday advanced to Na-restricted diet today pending first PO trends. Will monitor for PO tolerance and further nutrition intervention needs this admit. Recommendations: 1) Continue Na-restricted diet per MD; consider liberalizing to regular if initial PO trends poor; lipid panel WNL 2) monitor for PO trends and ONS needs 3) routine bowel care 4) weekly wts Addendum: 01/23/22 at [address] Amended: Links added.
--- NOTE | 2022-01-23 19:19 | NUR ---
Received report from LAURA Llanos.
[2022-01-23] MEDS: acetaminophen 325mg tablet PO PRN (20:49)
[2022-01-24 02:25] VITALS: BP 138/84
[2022-01-24 07:13] LABS: MAGNESIUM 1.7 MG/DL (1.5-2.4); POTASSIUM 3.3 MMOL/L (3.5-5.1); TRIGLYCERIDES 96 MG/DL (20-135)
[2022-01-24] MEDS: K and/or MAG REPLACEMENT MC SCH ×2 (08:00→19:25)
[2022-01-24] MEDS ORDERED: K and/or MAG REPLACEMENT MC SCH (08:00)
[2022-01-24] MEDS: apixaban 5mg tablet PO SCH ×2 (08:59→21:08)
[2022-01-24] MEDS: docusate sod 100mg capsule PO SCH ×2 (08:59→21:08)
[2022-01-24] MEDS: pantoprazole 40MG/NS 100ML BAG 100 ML IV SCH (08:59)
[2022-01-24] MEDS: levoTHYROXINE 25mcg tablet PO SCH (09:00)
[2022-01-24] MEDS: furosemide 40mg/4ml inj IV SCH ×2 (09:00→21:08)
[2022-01-24 11:00] VITALS: BP 147/93
[2022-01-24] MEDS: acetaminophen 325mg tablet PO PRN (14:09)
[2022-01-24 15:00] VITALS: BP 142/84
[2022-01-24 15:29] LABS: ALANINE AMINOTRANSFERASE 17 U/L (12-78); ALBUMIN 2.6 G/DL (3.4-5.0); ALBUMIN/GLOBULIN RATIO 0.5 (1.1-1.5); ALKALINE PHOSPHATASE 88 IU/L (46-116); ANION GAP 12 (8-16); ASPARTATE AMINO TRANSFERASE 15 U/L (10-37); BILIRUBIN,TOTAL 0.7 MG/DL (0.1-1.0); BLOOD UREA NITROGEN 53 MG/DL (7-18); BUN/CREATININE RATIO 22.1 (6.6-38.0); CALCIUM 8.8 MG/DL (8.5-10.1); CHLORIDE 104 MMOL/L (99-107); GLUCOSE 88 MG/DL (70-104); PHOSPHORUS 3.6 MG/DL (2.3-4.5); SODIUM 148 MMOL/L (135-145); TOTAL CARBON DIOXIDE 31.6 MMOL/L (24-32); TOTAL PROTEIN 7.6 G/DL (6.4-8.2); eGFR 21 ML/MIN
--- NOTE | 2022-01-24 15:42 | NUR ---
PRESSURE ULCER EDUCATION: DEFINITION: A pressure ulcer is an area of skin that breaks down when you stay in one position too long. The constant pressure against the skin reduces the blood flow to that area and the affected tissue dies. CAUSES: "Being bedridden or in a wheelchair "Fragile skin "Having a chronic condition, such as diabetes or vascular disease "Inability to move certain parts of your body without assistance "Older age "Incontinence of urine or stool SYMPTOMS: "A reddened area that DOES NOT turn white when pressed on - this can be the beginning of a pressure ulcer "A blister, deep sore or a crater - these can be advanced pressure ulcers FIRST AID: "Relieve the pressure on this area "Keep the area clean and dry "Call your primary doctor if you see any of the above symptoms "DO NOT massage the area "DO NOT use a donut shaped or ring shaped pillow- these actually interfere with the blood flow and cause complications PREVENTION: "Check for pressure ulcers everyday "Change position at least every two hours to relieve pressure "Use items that help relieve pressure- pillows, sheepskin, foam padding, and powders. "Keep skin clean and dry "Eat healthy well balanced meals "Exercise daily IF YOU SEE ANY OF THESE SYMPTOMS WHILE IN THE HOSPITAL - TELL YOUR NURSE IMMEDIATELY. IF YOU SEE ANY OF THESE SYMPTOMS WHILE AT HOME OR HAVE ANY QUESTIONS OR CONCERNS ABOUT PRESSURE ULCERS - CALL YOUR PRIMARY DOCTOR IMMEDIATELY. Addendum: 01/24/22 at 1542 by Sandy Freedman LVN Amended: Links added.
[2022-01-24] MEDS: potassium Cl 20 mEq SR tablet PO PRN (16:27)
[2022-01-24 18:00] VITALS: BP 133/66
--- NOTE | 2022-01-24 18:00 | NUR ---
Patient in room PCU 3024. I have received report from LAURA Llanos and had the opportunity to ask questions and assume patient care.
[2022-01-24] MEDS: ondansetron/PF 4mg/2ml inj IV PRN (21:35)
[2022-01-24 22:00] VITALS: BP 117/61
[2022-01-25 02:00] VITALS: BP 117/76
[2022-01-25 06:00] VITALS: BP 140/79
[2022-01-25] MEDS: levoTHYROXINE 25mcg tablet PO SCH (07:00)
[2022-01-25 07:20] LABS: ALBUMIN 2.7 G/DL (3.4-5.0); ANION GAP 6 (8-16); BLOOD UREA NITROGEN 44 MG/DL (7-18); BUN/CREATININE RATIO 20.4 (6.6-38.0); CALCIUM 8.6 MG/DL (8.5-10.1); CHLORIDE 103 MMOL/L (99-107); CREATININE 2.16 MG/DL (0.40-0.90); GLUCOSE 96 MG/DL (70-104); MAGNESIUM 1.9 MG/DL (1.5-2.4); PHOSPHORUS 3.3 MG/DL (2.3-4.5); POTASSIUM 3.2 MMOL/L (3.5-5.1); SODIUM 147 MMOL/L (135-145); TOTAL CARBON DIOXIDE 37.8 MMOL/L (24-32); eGFR 23 ML/MIN
[2022-01-25] MEDS: pantoprazole 40mg Tablet.DR PO SCH (07:30)
[2022-01-25] MEDS: K and/or MAG REPLACEMENT MC SCH ×2 (08:00→20:00)
[2022-01-25] MEDS: docusate sod 100mg capsule PO SCH ×2 (08:00→19:35)
[2022-01-25] MEDS: furosemide 40mg/4ml inj IV SCH (08:00)
--- NOTE | 2022-01-25 08:58 | NUR ---
Reassessment: Pt seen by wound care, per assessment skin is intact. Pt continues on 2 g Na restricted diet with slightly fluctuating PO intake with overall average 67% which meets 74% estimated energy needs and 97% estimated protein needs. No documented BM since admit, possibly impacting appetite. Pt receiving routine bowel care BID with additional PRN bowel care available. D/w dietary to send prunes and prune juice to assist with bowel regularity. Will continue to follow and monitor need for further nutrition intervention. Recommendations: 1) Continue 2 g Na restricted diet per MD; lipid panel WNL 2) Monitor need for ONS 3) Routine bowel care; utilize PRN bowel care 4) Weekly scaled weights Addendum: 01/25/22 at [address] Amended: Links added.
[2022-01-25] MEDS: apixaban 5mg tablet PO SCH ×2 (09:02→19:35)
[2022-01-25] MEDS: potassium Cl 20 mEq SR tablet PO PRN ×2 (09:03→13:16)
--- NOTE | 2022-01-25 09:17 | NUR ---
Pt refused her Protonix and Levothyroxine medications. I educated her on the reasons why she is taking them and how they help her. Notified doctor.
--- NOTE | 2022-01-25 09:18 | NUR ---
Patient refused the Lasix IV due this morning. I asked her if she knows what it's for, she replied to me "Yeah I know what it's for, its for my legs swelling!" I told her she is correct about that but the Lasix also will prevent her from building up fluids in her lungs! Patient still refusing the Lasix. Patient kept saying to me that she will be going home today. I told her that she does not have a doctor's order to go home yet at this time and also explained to her that she is still at 6 lpm of oxygen. Patient stated she uses oxygen at home at 3 lpm/nc. I encouraged patient to talk to the hospitalist doctor to discuss her concerns.
--- NOTE | 2022-01-25 09:24 | NUR ---
PAGER ID: [phone] MESSAGE: Room [id number] Meng Soto refused her Protonix and Levothyroxine I explained to her why she is taking the medication. Still refused. She thinks she is going home. KUSH Arriaga QUANTITATIVE ANALYST DEVELOPER [phone]
[2022-01-25 11:00] VITALS: BP 143/73
--- NOTE | 2022-01-25 11:03 | NUR ---
Dr. Mcgee made rounds, she was notified that patient hss been refusing her scheduled medications including Lasix IV.
--- NOTE | 2022-01-25 13:16 | NUR ---
Per Dr. Mcgee, we should leave the simon catheter alone at this time,
[2022-01-25 15:00] VITALS: BP 126/75
--- NOTE | 2022-01-25 15:53 | NUR ---
Staff found a Vaccination Card in the name of "Citlalli Hdz", who had visited the pt earlier. Citlalli was notified and she stated she was not coming back to [place] from [place] until Thursday, and could retrieve it then. She asked to leave her vax card w/ the patient. The patient agreed and Citlalli's vax card (now in a baggie) was secured to the patient's "notebook" w/ paper clips, as per pt's request. Addendum: 01/25/22 at 1754 by Yasmin Galloway RN Citlalli Hdz' phone number is [phone].
--- NOTE | 2022-01-25 16:23 | NUR ---
ANTONINA HOPE IS NOT TO HAVE ANY CONTACT OR GIVEN ANY INFORMATION TO. PT HAS A RESTRAINING ORDER AGAINST. SBAR HAS BEEN UPDATED WITH CORRECT CONTACTS.
--- NOTE | 2022-01-25 17:26 | NUR ---
TOBACCO SPRAYER documentation: I have reviewed and agree with all interventions, assessments performed and documented by RISHI Arriaga.
--- NOTE | 2022-01-25 17:30 | NUR ---
Held third dose of potassium due to creatinine was 2.16 and GFR 23 Per k replacement protocol I can reduce the dose by 50%.
[2022-01-25 18:00] VITALS: BP 101/58
--- NOTE | 2022-01-25 18:30 | NUR ---
Patient in room PCU 3024. I have received report from Flynn SANCHEZ and had the opportunity to ask questions and assume patient care.
--- NOTE | 2022-01-25 18:38 | NUR ---
Problems reprioritized. Patient report given, questions answered & plan of care reviewed with Kika Bellamy.
[2022-01-25 22:00] VITALS: BP 176/75
[2022-01-26 03:00] VITALS: BP 124/76
[2022-01-26 06:30] VITALS: BP 129/73
--- NOTE | 2022-01-26 06:30 | NUR ---
Patient in room PCU 3024. I have received report from LAURA Anand and had the opportunity to ask questions and assume patient care.
--- NOTE | 2022-01-26 06:30 | NUR ---
Problems reprioritized. Patient report given, questions answered & plan of care reviewed with Germania RN.
[2022-01-26 06:53] LABS: GLUCOSE 111 MG/DL (70-104)
[2022-01-26 06:54] LABS: ALBUMIN 2.5 G/DL (3.4-5.0); ANION GAP 3 (8-16); BLOOD UREA NITROGEN 41 MG/DL (7-18); BUN/CREATININE RATIO 20.8 (6.6-38.0); CALCIUM 8.3 MG/DL (8.5-10.1); CHLORIDE 103 MMOL/L (99-107); CREATININE 1.97 MG/DL (0.40-0.90); MAGNESIUM 1.8 MG/DL (1.5-2.4); PHOSPHORUS 2.5 MG/DL (2.3-4.5); POTASSIUM 3.4 MMOL/L (3.5-5.1); SODIUM 143 MMOL/L (135-145); TOTAL CARBON DIOXIDE 37.2 MMOL/L (24-32); eGFR 26 ML/MIN
[2022-01-26] MEDS: K and/or MAG REPLACEMENT MC SCH ×2 (07:47→20:51)
[2022-01-26] MEDS: docusate sod 100mg capsule PO SCH (09:39)
[2022-01-26] MEDS: furosemide 40mg tablet PO SCH (09:39)
[2022-01-26] MEDS: apixaban 5mg tablet PO SCH ×2 (09:39→20:51)
[2022-01-26] MEDS: pantoprazole 40mg Tablet.DR PO SCH (09:39)
[2022-01-26] MEDS: levoTHYROXINE 25mcg tablet PO SCH (09:39)
[2022-01-26] MEDS: potassium Cl 20 mEq SR tablet PO PRN ×3 (09:40→17:10)
[2022-01-26] MEDS ORDERED: acetaminophen 325mg tablet PO PRN (09:45)
[2022-01-26 11:00] VITALS: BP 126/83
[2022-01-26] MEDS ORDERED: traMADol 50MG tablet PO PRN (11:00)
[2022-01-26 15:00] VITALS: BP 136/91
--- NOTE | 2022-01-26 18:00 | NUR ---
Patient in room PCU 3024. I have received report from Germania and had the opportunity to ask questions and assume patient care.
--- NOTE | 2022-01-26 18:15 | NUR ---
Problems reprioritized. Patient report given, questions answered & plan of care reviewed with LAURA Kelly.
[2022-01-26 19:25] VITALS: BP 99/61
[2022-01-26 22:00] VITALS: BP 123/80
[2022-01-27 02:00] VITALS: BP 113/65
[2022-01-27] MEDS: acetaminophen 325mg tablet PO PRN ×2 (03:02→08:40)
[2022-01-27 06:00] VITALS: BP 114/70
[2022-01-27 07:17] LABS: ALBUMIN 2.4 G/DL (3.4-5.0); ANION GAP 5 (8-16); BLOOD UREA NITROGEN 39 MG/DL (7-18); BUN/CREATININE RATIO 21.4 (6.6-38.0); CALCIUM 7.9 MG/DL (8.5-10.1); CHLORIDE 105 MMOL/L (99-107); CREATININE 1.82 MG/DL (0.40-0.90); GLUCOSE 106 MG/DL (70-104); MAGNESIUM 1.8 MG/DL (1.5-2.4); SODIUM 144 MMOL/L (135-145); TRIGLYCERIDES 75 MG/DL (20-135); eGFR 28 ML/MIN
[2022-01-27 07:26] LABS: PHOSPHORUS 2.3 MG/DL (2.3-4.5); POTASSIUM 3.9 MMOL/L (3.5-5.1)
[2022-01-27] MEDS: K and/or MAG REPLACEMENT MC SCH (08:00)
[2022-01-27] MEDS: apixaban 5mg tablet PO SCH (08:39)
[2022-01-27] MEDS: furosemide 40mg tablet PO SCH (08:39)
[2022-01-27] MEDS: pantoprazole 40mg Tablet.DR PO SCH (08:40)
[2022-01-27] MEDS: levoTHYROXINE 25mcg tablet PO SCH (08:41)
[2022-01-27 09:48] LABS: BASOPHILS % (AUTO) 0.4 % (0-1); EOSINOPHILS # (AUTO) 0.2 X10'3 (0-0.9); EOSINOPHILS % (AUTO) 1.6 % (0-6); HEMATOCRIT 36.5 % (35.0-45.0); HEMOGLOBIN 11.8 g/dl (12.0-16.0); LYMPHOCYTES # (AUTO) 0.9 X10'3 (1.1-4.8); LYMPHOCYTES % (AUTO) 8.8 % (21-51); MEAN CORPUSCULAR HEMOGLOBIN 28.7 PG (27.0-31.0); MEAN CORPUSCULAR HGB CONC 32.3 g/dL (33.0-36.5); MEAN CORPUSCULAR VOLUME 88.9 FL (78-98); MEAN PLATELET VOLUME 8.3 FL (7.4-10.4); MONOCYTES # (AUTO) 0.8 X10'3 (0-0.9); MONOCYTES % (AUTO) 7.9 % (2-12); NEUTROPHILS # (AUTO) 8.1 X10'3 (1.8-7.7); NEUTROPHILS % (AUTO) 81.3 % (42-75); PLATELET COUNT 187 X10'3 (140-440); RED CELL DISTRIBUTION WIDTH 15.4 % (11.5-14.5)
[2022-01-27 09:55] LABS: ALANINE AMINOTRANSFERASE 13 U/L (12-78); ALBUMIN 2.6 G/DL (3.4-5.0); ALBUMIN/GLOBULIN RATIO 0.6 (1.1-1.5); ALKALINE PHOSPHATASE 93 IU/L (46-116); ANION GAP 7 (8-16); ASPARTATE AMINO TRANSFERASE 19 U/L (10-37); BILIRUBIN,TOTAL 0.6 MG/DL (0.1-1.0); BLOOD UREA NITROGEN 38 MG/DL (7-18); BUN/CREATININE RATIO 20.2 (6.6-38.0); CALCIUM 7.9 MG/DL (8.5-10.1); CHLORIDE 103 MMOL/L (99-107); CREATININE 1.88 MG/DL (0.40-0.90); GLUCOSE 116 MG/DL (70-104); POTASSIUM 3.7 MMOL/L (3.5-5.1); SODIUM 144 MMOL/L (135-145); TOTAL PROTEIN 7.2 G/DL (6.4-8.2); eGFR 27 ML/MIN
[2022-01-27] MEDS ORDERED: FURO40TA4 PO (10:19)
[2022-01-27 11:00] VITALS: BP 136/83
== END 2022-01-27 14:28 | disposition home or self-care (01) | DRG 133 ==
LOC: ICU 2S 15:00 → PCU 3S 01-23 16:46
PROVIDERS: ADMIT Internal Medicine Critical Care Medicine; ATTEND Internal Medicine Critical Care Medicine
PROC: 5A1935Z Respiratory Ventilation, Less than 24 Consecutive Hours (ICD-10-PCS; principal; 2022-01-21)
PROC: 0BH17EZ Insertion of Endotracheal Airway into Trachea, Via Natural or Artificial Opening (ICD-10-PCS; 2022-01-21)
DX: J96.21 Acute and chronic respiratory failure with hypoxia (principal); D69.6 Thrombocytopenia, unspecified; E87.4 Mixed disorder of acid-base balance; N17.9 Acute kidney failure, unspecified; I27.29 Other secondary pulmonary hypertension; I49.5 Sick sinus syndrome; L03.115 Cellulitis of right lower limb; E03.9 Hypothyroidism, unspecified; E66.01 Morbid (severe) obesity due to excess calories; N18.32 Chronic kidney disease, stage 3b; I50.813 Acute on chronic right heart failure; F17.200 Nicotine dependence, unspecified, uncomplicated; I48.91 Unspecified atrial fibrillation; I89.0 Lymphedema, not elsewhere classified; J44.9 Chronic obstructive pulmonary disease, unspecified; J96.22 Acute and chronic respiratory failure with hypercapnia; Z79.01 Long term (current) use of anticoagulants; Z86.711 Personal history of pulmonary embolism; Z86.718 Personal history of other venous thrombosis and embolism; Z90.710 Acquired absence of both cervix and uterus; Z95.0 Presence of cardiac pacemaker; Z68.30 Body mass index [BMI] 30.0-30.9, adult; Z79.899 Other long term (current) drug therapy; Z88.8 Allergy status to other drugs, medicaments and biological substances; Z79.890 Hormone replacement therapy; E87.6 Hypokalemia
CPT/HCPCS: 36415; 36600; 71045; 80048; 80053; 80061; 81001; 82803; 82948; 83036; 83735; 84100; 84443; 84478; 85007; 85018; 85025; 87070; 87081; 93306; 94003; 94760; 97161; 97530; C9113; G0378; J1940; J2405; J2704; J3010; J3490